=== PATIENT | female | born 1965 | race Caucasian/White ===

== ENCOUNTER 2022-10-21 09:20 | Outpatient (RCR) | payer BC, SELFPAY ==
[2022-10-21 09:48] VITALS: BP 181/85; PULSE 96; TEMP 35.9; BMI 22.4
--- NOTE | 2022-10-21 10:26 | RAD_ITS ---
INDICATION: R/O FOREIGN BODY EXAMINATION/TECHNIQUE: X-RAY - RIGHT XR Tibia/Fibula 2 Views COMPARISON: None. FINDINGS: No acute fracture or malalignment. No blastic or lytic lesions. Mild tricompartmental degenerative changes of the knee. The soft tissues are unremarkable. RAD/Tibia & Fibula 2 Views IMPRESSION: No radiopaque foreign body. Mild tricompartmental degenerative osteoarthritis of the knee. Electronically Signed: Gabriel Grayson MD at 16:51 EDT ,
--- NOTE | 2022-10-21 11:51 | PCM.WC.PN ---
History of Present Illness Date of Service: 10/21/22 Chief Complaint: Follow-up on traumatic wound right lower leg History of Wound: 57-year-old white female diabetic was walking across a bridge that collapsed over Labor memorial weekend of September 20. Leg went through wood and had wood sticking out of her wound. Patient thought she got it all out but was also in a [place] but ended up going to emergency room that did nothing and then she went to her family doctor and he basically put her on water pills and got an ultrasound which showed negative for blood clot they finally decided she had cellulitis and put her on Bactrim DS after the third urgent care. Patient states there is no cultures ever taken and no x-rays of her leg ultrasound really did not look for foreign body but found that everything was compressible and there is no issues with blood clots. Progress of Wound: Today she has a rather large open wound on the right lateral aspect of her right lower extremity with a deeper area that goes down to 1.0 cm's. She states is very painful and I question if there is a foreign body in there we will get an x-ray of her leg just to make sure there is nothing going on and obtain cultures today. In the meantime patient be started on Fibracol and an absorbent dressing. Subjective Subjective Patient was very happy we did cultures and getting x-rays done of her leg we will contact her with the results before we go any further with treatment Objective Data Objective Data We will start with the Fibracol and see if we see any difference pending will be her cultures and x-ray to determine further treatment. Patient had some recent lab work done that shows she is slightly anemic at 11.1 and she has some iron issues with her iron saturation is less than 22. Patient states her A1c was very good Vital Signs: Vital Signs Temp Pulse BP 96.7 F L 96 181/85 H 10/21/22 09:48 10/21/22 09:48 10/21/22 09:48 Weight: 135 lb Body Mass Index (BMI) 22.4 Debridement Note Debridement Note Wound debrided: Right lower extremity trauma pneumatic opening nonpressure Type of Debridement: Excisional debridement Anesthesia Used: 5% Lidocaine Gel Depth: Down to and including healthy tissue Percentage of wound debrided: 100 Instrument Used: 5mm curette Tissue Removed: Fibrin slough hematoma Severity: Fat Layer Exposed Amount of bleeding with debridement: Mild Bleeding Controlled with: Compression and gauze Patient tolerated procedure: Patient tolerated procedure well Post-Debridement Measurements and Additional Note: Post-Debridement Measurements/Treatment WC - Nurse 1 - General Ulcer Assessment Start: 10/21/22 09:35 Freq: Status: Active Protocol: MEENU Activity Type Activity Date Activity User E-sign Co-sign Detail Recorded Client Recorded Date Recorded By Document 10/21/22 09:48 GERHARD [id number] 10/21/22 09:51 GERHARD 10/21/22 09:48 WC - Today's Visit Information Type of service Initial Visit Arrival Mode Ambulatory Patient Identification Verified (Name & Yes ) Height and Weight Height 5 ft 5 in Weight 135 lb Weight in Pounds 135.0 lbs Body Mass Index (BMI) 22.4 BMI Classification Normal BSA - Narciso 1.67 Vital Signs Temperature (97.8 F-99.1 F) 96.7 F L Temperature Source Temporal Pulse Rate (60-100) 96 Pulse Location Monitor Blood Pressure (90/60-120/80) 181/85 H Blood Pressure Mean (mm Hg) 117 Source Monitor History Since Last Visit- (Skip if this is Patient's initial visit) Left Footwear Regular Shoe Right Footwear Regular Shoe Pain Scale: 0-10 Numeric Is Patient Pain Free? No LAURENCE - Nurse 1 - General Ulcer Measurement Start: 10/21/22 09:35 Freq: Status: Active Protocol: Activity Type Activity Date Activity User E-sign Co-sign Detail Recorded Client Recorded Date Recorded By Document 10/21/22 09:48 GERHARD [id number] 10/21/22 09:51 GERHARD 10/21/22 09:48 Wound Center Nurse 1 #1 R Vivas -Current Size (cm) - Length 2 -Current Size (cm) - Width 2.2 -Current Size (cm) - Depth 0.2 -Total Square Cm 4.4 -Date of Last Picture (Recall this 10/21/22 field) -Photo Taken Yes -Tunneling No -Undermining/Tunneling No -Circular Undermining No -Classification - Thickness Full Thickness with Exposed Support Structure -Exudate Amt Medium -Exudate Type Serosanguineous -Wound Margin Distinct, Outline Attached -Granulation Amt Medium (34-66%) -Granulation Quality [place] -Slough/Fibrin Yes -Necrosis Amt Medium (34-66%) -Necrotic Tissue Type Adherent Slough -Texture (Zenia-wound Skin Appearance) Assessed, Excoriation, Localized Edema -Moisture (Zenia-wound Skin Appearance) Assessed, Weeping -Color (Zenia-wound Skin Appearance) Assessed, Erythema -Temperature (Zenia-wound Skin No Abnormality Appearance) (Pt Warm) -Tenderness on Palpation (Zenia-wound Yes Skin Appearance) -Ulcer Cleansing Rinsed/ Irrigated with Saline -Foul Odor after Cleansing No -Anesthetic Used 5% Lidocaine Gel Right Calf (cm) 48 Right Ankle (cm) 25 Left Calf (cm) 49 Left Ankle (cm) 26 WC - Nurse 2 - General Ulcer CM Notes Start: 10/21/22 09:35 Freq: Status: Active Protocol: Activity Type Activity Date Activity User E-sign Co-sign Detail Recorded Client Recorded Date Recorded By Document 10/21/22 11:21 PL [id number] 10/21/22 11:22 PL 10/21/22 11:21 Wound Center Nurse 2 #1 R Vivas -Time 09:48 -Correct Patient Yes -Correct Side, Site, Position Yes -Correct Procedure Yes -Procedure Performed Yes -Type of Procedure Debridement -Clinical Debridement Subcutaneous -Tissue Removed Subcutaneous -Post Debridement (cm) - Length 2.0 -Post Debridement (cm) - Width 2.5 -Post Debridement (cm) - Depth 1.0 -Total Square (Post) (cm) 5.00 -Area of Debridement (cm) - Length 2.0 -Area of Debridement (cm) - Width 2.5 -Total Square (Area) (cm) 5.00 -Tunneling No -Undermining/Tunneling No -Circular Undermining No -Wound/Ulcer Outcome Not Healed -Ulcer Cleansing Rinsed/ Irrigated with Saline -Foul Odor after Cleansing No -Bioengineered Tissue No -Bleeding Controlled with Pressure -Treatment Response Procedure Tolerated Well -Debridement - Subq, 1st 20sq cm Yes Pain Scale: 0-10 Numeric Is Patient Pain Free? Yes - Nurse 3 - General Ulcer D/C NN Start: 10/21/22 09:35 Freq: Status: Active Protocol: Activity Type Activity Date Activity User E-sign Co-sign Detail Recorded Client Recorded Date Recorded By Document 10/21/22 10:10 [facility] [id number] 10/21/22 10:11 [facility] 10/21/22 10:10 Wound Care Center Nurse 3 #1 R Vivas -Ulcer Cleansing Rinsed/ Irrigated with Saline -Foul Odor after Cleansing No -Primary Dressing Applied Fibracol Plus 4x4,Mepilex Border -Fibracol Plus 4x4 2 -Mepilex Border 2 Right -Tubular Bandage Double Layer -Size of Tubigrip Used Size F -Size F ($) 2 Treatment Response Procedure Tolerated Well Pain Scale: 0-10 Numeric Is Patient Pain Free? Yes WC - Visit Discharge Discharge Condition Stable Ambulatory Status Ambulatory Transportation Private Auto Assessment/Plan Assessment/Plan (1) Hyperglycemia due to diabetes mellitus: CODE(S): E11.65 - Type 2 diabetes mellitus with hyperglycemia PLAN: Continue monitoring blood sugars (2) Nonhealing nonsurgical wound: CODE(S): T14.8XXA - Other injury of unspecified body region, initial encounter (3) Right leg injury: CODE(S): S89.91XA - Unspecified injury of right lower leg, initial encounter QUALIFIERS: Encounter type: initial encounter Qualified Code(s): S89.91XA - Unspecified injury of right lower leg, initial encounter PLAN: Wash right lower leg with antibacterial soap apply fibrin call to wound base cover with absorbent dressing Get the x-rays ordered done Follow-up in 1 week we will contact with results of cultures and x-rays (4) Edema of right lower extremity: CODE(S): R60.0 - Localized edema (5) Infected wound: CODE(S): T14.8XXA - Other injury of unspecified body region, initial encounter; L08.9 - Local infection of the skin and subcutaneous tissue, unspecified
== END 2022-10-23 23:59 | disposition home or self-care (01) ==
LOC: WC 09:20
PROVIDERS: PCP Family Medicine; Referring Provider Family Medicine; Visit Provider Nurse Practitioner
DX: S81.801A Unspecified open wound, right lower leg, initial encounter (principal); E11.65 Type 2 diabetes mellitus with hyperglycemia; L08.9 Local infection of the skin and subcutaneous tissue, unspecified; W13.1XXA Fall from, out of or through bridge, initial encounter; Y93.01 Activity, walking, marching and hiking
CPT/HCPCS: 11042; 73590; 87070; 87075; 87077; 87186; 87205; 99213; G0463

== ENCOUNTER 2022-10-25 09:41 | Emergency (ER) | payer BC, SELFPAY ==
[2022-10-25 09:43] VITALS: BP 131/81; PULSE 94; RESP 14; TEMP 36.1; O2SAT 98; BMI 48.2
--- NOTE | 2022-10-25 10:26 | RAD_ITS ---
STUDY: X-RAY - UNILATERAL RIBS ( RIGHT ) WITH CHEST REASON FOR EXAM: Female, 57 years old. injury TECHNIQUE - RIBS: 3 view(s) of the ribs. TECHNIQUE - CHEST: Single PA view of the chest. COMPARISON: None. FINDINGS - RIBS: Acute slightly displaced fracture of the lateral right fifth rib. FINDINGS - CHEST: The lungs are clear and expanded. Slight elevation right hemidiaphragm. Normal size heart. Normal mediastinum and rebeka. Normal visualized pulmonary arteries. Normal visualized aortic arch and descending thoracic aorta. Normal visualized thoracic spine. Normal visualized ribs, clavicles, and shoulders. There is no demonstrated abnormality of the visualized soft tissue structures of the upper abdomen. RAD/Ribs Uni Min 3V w/PA Chest IMPRESSION: RIBS: Acute slightly laterally displaced fracture of the right fifth rib. CHEST: No pneumothorax or hemothorax. Electronically Signed: Lazarus Rios MD at 11:06 EDT ,
--- NOTE | 2022-10-25 10:27 | EX.ED.GENINJ ---
HPI History of Present Illness Chief Complaint: Chest Other Detail of Chief Complaint: Right-sided chest pain Informant: patient Narrative Narrative: Patient presents to the emergency department with complaint of right-sided chest pain. Patient states that she had a fall 1 week ago where her dog was trying to run out of the house and she grabbed a harness and fell onto her right chest. She hurt right away. She continues to have pain and when she woke up this morning had more significant pain on the right side. Pain worse with certain movements like bending over to try to tie her shoe. Patient denies any shortness of breath or significant discomfort with breathing. She denies any fever. She denies recent travel or surgery. PFSH PFSH Home Medications hydrocodone-acetaminophen 5-325mg 5mg-325mg 1 tab PO Q4H PRN PRN Pain 2 days #10 TABLETS 10/25/22 [Rx Last Taken Unknown] Allergy/AdvReac Type Severity Reaction Status Date / Time Asprin Allergy Unknown PT UNSURE Uncoded 10/23/22 16:14 OF REACTION Social History Smoking Status: Never smoker ROS ROS ED Review of Systems ROS Unobtainable: other Constitutional Constitutional ED: Reports lethargy; Denies chills, fever(s), sweats or weight loss Eyes Eyes: Denies blurry vision, change in vision or diplopia ENT ENT ED: Denies rhinorrhea or sore throat Cardiovascular Cardiovascular: Reports chest pain; Denies orthopnea or racing heartbeat Respiratory/Chest Respiratory/Chest: Denies cough, dyspnea, dyspnea on exertion, orthopnea or sputum Gastrointestinal Gastrointestinal: Denies abdominal pain, diarrhea, nausea or vomiting Genitourinary Genitourinary ED: Denies dysuria, hematuria or urinary frequency Musculoskeletal Musculoskeletal: Denies arthralgias, back pain, myalgias or neck pain Integumentary Denies abscess, Abrasions or rash Neurologic Neurologic: Denies headache(s) or weakness Psychiatric Psychiatric: Denies anxiety, depression or suicidal thoughts Endocrine Endocrinology: Denies polydipsia, polyphagia or polyuria Hematologic/Lymphatic Hematologic/Lymphatic: Denies easy bleeding, easy bruising or lymphadenopathy Allergic/Immunologic Allergic/Immunologic ED: Denies mouth swelling, tongue swelling or urticaria EXAM Physical Exam Const Vital Signs: 10/25/22 09:43 10/25/22 10:44 Temperature 97 F L Temperature Source Temporal Pulse Rate 94 Respiratory Rate 14 Respiratory Pattern Normal Blood Pressure 131/81 H Blood Pressure Mean 97 Pulse Ox 98 Oxygen Delivery Method Room Air Positive well nourished and well developed General Appearance ED: well developed and NAD HEENT Reports TM's clear and moist mucous membranes normocephalic and atraumatic; Negative for trauma or tenderness Tympanic Membrane ED: Yes TM's clear Eyes PERRL and EOMs intact bilaterally General Eye ED: Negative for pale conjunctiva or scleral icterus Neck no lymphadenopathy, supple and no JVD General: Negative for tenderness Chest Wall inspection of chest normal Chest Narrative: Patient with tenderness palpation over the right chest wall in the midaxillary line and anteriorly. There is no ecchymosis or bruising. No subcutaneous emphysema noted. No chest wall deformity. Chest: Negative for tenderness Resp normal respiratory effort and clear to auscultation bilaterally Effort and Inspection: Negative for respiratory distress or pain with movement Auscultation: Negative for rhonchi, wheezes or diminished lung sounds Cardio regular rate, regular rhythm, S1 normal heart sound, S2 normal heart sound and no murmurs Peripheral Pulses: pulses 2+ throughout GI normal to inspection, nondistended, normoactive bowel sounds, soft to palpation, non-tender, non-distended and no masses Back/Spine no CVA tenderness and no thoracic nor lumbar tenderness Extremity normal to inspection General Extremety ED: Negative for edema General Extremity: Negative for edema Neuro oriented x3, CN's II-XII intact bilaterally, no sensory deficits noted and gait normal Sensorium / Orientation: awake, alert, oriented to person, oriented to place and oriented to time Motor Exam: strength 5/5 throughout and strength abnormal Psych mental status grossly normal Skin no rashes or lesions noted and no wounds MDM MDM MDM Narrative Medical decision making narrative: Patient with injury to right chest wall. X-rays obtained of the right ribs showed a minimally displaced right fifth rib fracture without evidence of pneumothorax. Patient will be given a prescription for [place] for pain and dispensed an incentive spirometer. Patient advised to return if increasing shortness of breath, fever, hemoptysis, or condition should worsen anyway. Radiography Diagnostic Testing: Clinical Impression(s) from Imaging Studies Ribs w/Chest X-Ray 10/25/22 10:26 IMPRESSION: RIBS: Acute slightly laterally displaced fracture of the right fifth rib. CHEST: No pneumothorax or hemothorax. Electronically Signed: Lazarus Rios MD at 11:06 EDT , Three-view x-rays of right ribs and PA chest obtained interpreted by myself as fracture right fifth rib without evidence of pneumothorax. Radiology in agreement. Discharge Plan Triage Chief Complaint: Chest Other ED Provider: Arielle Dent Dx/Rx/DC Orders Clinical Impression: Fracture of rib Instructions: ED Rib Fracture Prescriptions: New hydrocodone-acetaminophen [hydrocodone-acetaminophen] 5-325 mg tablet 1 tab PO Q4H PRN PRN (Reason: Pain) 2 Days Qty: 10 0RF Primary Care Provider: Tod Whitt Referrals: Tod Whitt MD [Primary Care Provider] - 1 Week Disposition Disposition: Home, Self Care
[2022-10-25] MEDS: HYDROcodone Bitartrate/Apap 5/325 Tablet PO (11:34)
== END 2022-10-25 12:11 | disposition home or self-care (01) ==
PROVIDERS: Emergency Provider Emergency Medicine; PCP Family Medicine; Visit Provider Emergency Medicine
DX: S22.31XA Fracture of one rib, right side, initial encounter for closed fracture (principal); W18.39XA Other fall on same level, initial encounter; Y92.019 Unspecified place in single-family (private) house as the place of occurrence of the external cause
CPT/HCPCS: 71101; 99283

== ENCOUNTER 2022-11-23 13:00 | Outpatient (RCR) | payer BC, SELFPAY ==
[2022-10-24 01:48] VITALS: BP 181/85; PULSE 96; TEMP 35.9; BMI 22.4
[2022-10-28 08:51] VITALS: BP 157/83; PULSE 111; RESP 16; TEMP 36.4; BMI 22.4
--- NOTE | 2022-10-28 12:16 | PN.PCM_ITS ---
History of Present Illness Date of Service: 10/28/22 Chief Complaint: Follow-up on traumatic wound right lower leg History of Wound: 57-year-old white female diabetic was walking across a bridge that collapsed over Labor memorial weekend of September 20. Leg went through wood and had wood sticking out of her wound. Patient thought she got it all out but was also in a [place]. but ended up going to emergency room that did nothing and then she went to her family doctor and he basically put her on water pills and got an ultrasound which showed negative for blood clot they finally decided she had cellulitis and put her on Bactrim DS after the third urgent care. Patient states there is no cultures ever taken and no x-rays of her leg ultrasound really did not look for foreign body but found that everything was compressible and there is no issues with blood clots. Progress of Wound: Today the wound is about the same size but did debride out a lot of the necrotic tissue today and got down to good tissue. Still has a lot of pain with debridement has a little bit of undermining on the lateral side of the wound. Patient was positive on cultures but has not been on the right antibiotic is still taking her Bactrim DS and I told her to stop and take the Levaquin. We will continue using compression on her for better edema control Subjective Subjective Patient is agreeable to all that we discussed Objective Data Objective Data Again we debrided a lot of the necrotic tissue out of the wound base but looks b igger but actually it is improving. Patient had back positive cultures and will be started on Levaquin this week X-ray was negative for any foreign bodies and soft tissue but did show swelling around the area. Also shows she has some right knee derangement and will be referred to orthopedics. Vital Signs: Vital Signs Temp Pulse Resp BP O2 Del Method 97.5 F L 111 H 16 157/83 H Room Air 10/28/22 08:51 10/28/22 08:51 10/28/22 08:51 10/28/22 08:51 10/28/22 08:51 Oxygen Delivery Method Room Air Weight: 135 lb Body Mass Index (BMI) 22.4 Lab / Micro Data Attestation: I reviewed the patient's lab results. Physical Exam Const oriented x3 General Appearance: cooperative Exam Limitations: no limitations HEENT normocephalic Head and Scalp: normal to inspection Face and Sinus: normal facial exam Nose: external nose normal General Ear: hearing grossly impaired External Ear: external ears normal Mouth: oral and palatal mucosa normal Eyes PERRL General Eye: normal appearance of both eyes Neck full ROM General: normal visual inspection Resp normal respiratory effort Effort and Inspection: able to speak in complete sentences Auscultation: clear to auscultation bilaterally Cardio regular rate and regular rhythm Palpation: normal PMI Rate: regular rate Rhythm: regular rhythm GI Auscultation: normoactive bowel sounds Palpation: soft and no hepatosplenomegaly external exam normal Back/Spine Cervical Spine: cervical ROM normal Thoracic Spine / Upper Back: normal to inspection Lumbar Spine / Lower Back: normal to inspection Extremity normal to inspection General Extremity: normal exam except as noted Skin no rashes or lesions noted Neuro oriented x3 Psych Appearance: grossly normal Speech: normal speech Thought Content: normal thought content Judgement: judgement good Debridement Note Debridement Note Wound debrided: Right alcantara traumatic wound Type of Debridement: Excisional debridement Anesthesia Used: 5% Lidocaine Gel Depth: in the subcutaneous layer Percentage of wound debrided: 100 Instrument Used: 5mm curette Tissue Removed: Devitalized tissue slough fibrin Severity: Fat Layer Exposed Amount of bleeding with debridement: Mild Bleeding Controlled with: Compression and gauze Patient tolerated procedure: Patient tolerated procedure well Post-Debridement Measurements and Additional Note: Post-Debridement Measurements/Treatment - Nurse 1 - General Ulcer Assessment Start: 10/28/22 08:50 Freq: Status: Active Protocol: WC.LOWEXT Activity Type Activity Date Activity User E-sign Co-sign Detail Recorded Client Recorded Date Recorded By Document 10/28/22 08:51 [facility] [id number] 10/28/22 09:01 [facility] 10/28/22 08:51 - Today's Visit Information Type of service 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 Visit (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 ) Arrival Mode Ambulatory,Cane Transfer Assistance None Patient Identification Verified (Name & Yes ) Patient Requires Transmission-Based No Precautions Height and Weight Body Mass Index (BMI) 22.4 BMI Classification Normal Vital Signs Temperature (97.8 F-99.1 F) 97.5 F L Temperature Source Temporal Pulse Rate (60-100) 111 H Pulse Location Monitor Respiratory Rate (12-18) 16 Respiratory rate source Observation Oxygen Delivery Method Room Air Blood Pressure (90/60-120/80) 157/83 H Blood Pressure Mean (mm Hg) 107 Source Monitor Position Sitting Blood Pressure Location Right Forearm History Since Last Visit- (Skip if this is Patient's initial visit) Have you changed medications since your No last visit? Any new allergies or adverse reactions No Had a fall/change in ADL's that may No increase risk of falls Signs or symptoms of abuse and/or No neglect since last visit Have you been in the hospital since your No last visit? Has dressing in place as prescribed Yes Has compression in place as prescribed Yes Has offloadiing in place as prescribed N/A Experienced any changes in pain level or No management Left Footwear Regular Shoe Right Footwear Regular Shoe Pain Scale: 0-10 Numeric Is Patient Pain Free? Yes WC - Nurse 1 - General Ulcer Measurement Start: 10/28/22 08:50 Freq: Status: Active Protocol: Activity Type Activity Date Activity User E-sign Co-sign Detail Recorded Client Recorded Date Recorded By Document 10/28/22 08:51 [facility] [id number] 10/28/22 09:01 [facility] 10/28/22 08:51 Wound Center Nurse 1 #1 R Alcantara -Combined with other wound No -Current Size (cm) - Length 2.1 -Current Size (cm) - Width 2.3 -Current Size (cm) - Depth 0.8 -Total Square Cm 4.83 -Date of Last Picture (Recall this 10/28/22 field) -Photo Taken Yes -Epithelialization None Present -Tunneling No -Undermining/Tunneling Yes -Undermining/Tunneling Starts (O'clock 2 ) -Undermining/Tunneling Ends (O'clock) 5 -Maximum Distance (cm) 1.3 -Circular Undermining No -Exudate Amt Large -Exudate Type Serosanguineous -Wound Margin Distinct, Outline Attached -Granulation Amt Medium (34-66%) -Granulation Quality Red -Slough/Fibrin Yes -Necrosis Amt Medium (34-66%) -Necrotic Tissue Type Adherent Slough -Texture (Zenia-wound Skin Appearance) Assessed, Fluctuance -Moisture (Zenia-wound Skin Appearance) Assessed -Color (Zenia-wound Skin Appearance) Assessed, Erythema -Temperature (Zenia-wound Skin No Abnormality Appearance) (Pt Warm) -Tenderness on Palpation (Zenia-wound Yes Skin Appearance) -Ulcer Cleansing Soap and Water -Anesthetic Used 5% Lidocaine Gel,Cetacaine Lower Limb Edema Present Yes Right Calf (cm) 46 Right Ankle (cm) 24.2 WC - Nurse 2 - General Ulcer CM Notes Start: 10/28/22 08:50 Freq: Status: Active Protocol: Activity Type Activity Date Activity User E-sign Co-sign Detail Recorded Client Recorded Date Recorded By Document 10/28/22 09:23 MW [id number] 10/28/22 09:27 MW 10/28/22 09:23 Wound Center Nurse 2 #1 R Alcantara -Time 09:24 -Correct Patient Yes -Correct Side, Site, Position Yes -Correct Procedure Yes -Procedure Performed Yes -Type of Procedure Debridement -Clinical Debridement Subcutaneous -Tissue Removed Subcutaneous -Post Debridement (cm) - Length 2.0 -Post Debridement (cm) - Width 2.5 -Post Debridement (cm) - Depth 0.5 -Total Square (Post) (cm) 5.00 -Area of Debridement (cm) - Length 2.0 -Area of Debridement (cm) - Width 2.5 -Total Square (Area) (cm) 5.00 -Tunneling No -Undermining/Tunneling Yes -Undermining/Tunneling Starts (O'clock 12 ) -Undermining/Tunneling Ends (O'clock) 5 -Maximum Distance (cm) 0.6 -Circular Undermining No -Wound/Ulcer Outcome Not Healed -Ulcer Cleansing Rinsed/ Irrigated with Saline -Foul Odor after Cleansing No -Bioengineered Tissue No -Bleeding Controlled with Pressure -Treatment Response Procedure Tolerated Well -Offloading No -Debridement - Subq, 1st 20sq cm Yes Pain Scale: 0-10 Numeric Is Patient Pain Free? Yes - Nurse 3 - General Ulcer D/C NN Start: 10/28/22 08:50 Freq: Status: Active Protocol: Activity Type Activity Date Activity User E-sign Co-sign Detail Recorded Client Recorded Date Recorded By Document 10/28/22 09:38 [facility] [id number] 10/28/22 09:39 [facility] 10/28/22 09:38 Wound Care Center Nurse 3 #1 R Alcantara -Ulcer Cleansing Rinsed/ Irrigated with Saline -Foul Odor after Cleansing No -Primary Dressing Applied Fibracol Plus 4x4,Mepilex Border -Fibracol Plus 4x4 1 -Mepilex Border 4 Right -Tubular Bandage Double Layer -Size of Tubigrip Used Size E -Size E ($) 1 Treatment Response Procedure Tolerated Well Pain Scale: 0-10 Numeric Is Patient Pain Free? Yes WC - Visit Discharge Discharge Condition Stable Ambulatory Status Ambulatory,Cane Transportation Private Auto Assessment/Plan Assessment/Plan (1) Hyperglycemia due to diabetes mellitus: CODE(S): E11.65 - Type 2 diabetes mellitus with hyperglycemia PLAN: Continue monitoring blood sugars (2) Nonhealing nonsurgical wound: CODE(S): T14.8XXA - Other injury of unspecified body region, initial encounter (3) Right leg injury: CODE(S): S89.91XA - Unspecified injury of right lower leg, initial encounter QUALIFIERS: Encounter type: initial encounter Qualified Code(s): S89.91XA - Unspecified injury of right lower leg, initial encounter PLAN: Wash right lower leg with antibacterial soap apply fibrin call to wound base cover with absorbent dressing every day Start the Levaquin 500 mg daily for 14 days and stop the Bactrim DS Double layer Tubigrip to the right leg for edema Follow-up in 1 week (4) Edema of right lower extremity: CODE(S): R60.0 - Localized edema (5) Infected wound: CODE(S): T14.8XXA - Other injury of unspecified body region, initial enco unter; L08.9 - Local infection of the skin and subcutaneous tissue, unspecified
[2022-11-04 09:04] VITALS: BP 139/91; PULSE 100; RESP 20; TEMP 36.5; BMI 22.4
--- NOTE | 2022-11-04 10:12 | PCM.WC.PN ---
History of Present Illness Date of Service: 11/04/22 Chief Complaint: Follow-up on traumatic wound right lower leg History of Wound: 57-year-old white female diabetic was walking across a bridge that collapsed over Labor memorial weekend of September 20. Leg went through wood and had wood sticking out of her wound. Patient thought she got it all out but was also in a [place]. but ended up going to emergency room that did nothing and then she went to her family doctor and he basically put her on water pills and got an ultrasound which showed negative for blood clot they finally decided she had cellulitis and put her on Bactrim DS after the third urgent care. Patient states there is no cultures ever taken and no x-rays of her leg ultrasound really did not look for foreign body but found that everything was compressible and there is no issues with blood clots. Progress of Wound: Today the wound is slightly smaller still has a lot of undermining especially down at 6:00. Redness around the wound perimeter has disappeared on the antibiotics she finally stopped the Bactrim and is only taking the Levaquin daily. She can even see a difference I can see a new cell growth in the base of the cell more shallow measurements are smaller. We will get okayed for a snap VAC for the wound on her lower leg I think it might help with healing and getting rid of the undermining. Patient very tolerant to the debridement and did get a lot of slough and fibrin out of the base of the wound Subjective Subjective Patient is good with the plan and will continue using the Fibracol to we get the snap VAC okay Objective Data Objective Data As stated above improvement is seen on the legs she does have positive for staph infection and is treating with Levaquin no anaerobes were noted which is really good since it [place]. We will get the approval for a snap VAC for the leg and see if that works for her healing. Vital Signs: Vital Signs Temp Pulse Resp BP O2 Del Method 97.7 F L 100 20 H 139/91 H Room Air 11/04/22 09:04 11/04/22 09:04 11/04/22 09:04 11/04/22 09:04 10/28/22 08:51 Oxygen Delivery Method Room Air Weight: 135 lb Body Mass Index (BMI) 22.4 Lab / Micro Data Attestation: I reviewed the patient's lab results. Physical Exam Const oriented x3 General Appearance: cooperative Exam Limitations: no limitations HEENT normocephalic Head and Scalp: normal to inspection Face and Sinus: normal facial exam Nose: external nose normal General Ear: hearing grossly impaired External Ear: external ears normal Mouth: oral and palatal mucosa normal Eyes PERRL General Eye: normal appearance of both eyes Neck full ROM General: normal visual inspection Resp normal respiratory effort Effort and Inspection: able to speak in complete sentences Auscultation: clear to auscultation bilaterally Cardio regular rate and regular rhythm Palpation: normal PMI Rate: regular rate Rhythm: regular rhythm GI Auscultation: normoactive bowel sounds Palpation: soft and no hepatosplenomegaly external exam normal Back/Spine Cervical Spine: cervical ROM normal Thoracic Spine / Upper Back: normal to inspection Lumbar Spine / Lower Back: normal to inspection Extremity normal to inspection General Extremity: normal exam except as noted Skin no rashes or lesions noted Neuro oriented x3 Psych Appearance: grossly normal Speech: normal speech Thought Content: normal thought content Judgement: judgement good Debridement Note Debridement Note Wound debrided: Right lower leg ulcer from trauma Type of Debridement: Excisional debridement Anesthesia Used: 5% Lidocaine Gel Depth: Down to and including healthy tissue and in the subcutaneous layer Percentage of wound debrided: 100 Instrument Used: 7mm curette Tissue Removed: Fibrin devitalized tissue slough Severity: Fat Layer Exposed Amount of bleeding with debridement: Mild Bleeding Controlled with: Compression and gauze Patient tolerated procedure: Patient tolerated procedure well Post-Debridement Measurements and Additional Note: Post-Debridement Measurements/Treatment - Nurse 1 - General Ulcer Assessment Start: 10/28/22 08:50 Freq: Status: Active Protocol: MEENU Activity Type Activity Date Activity User E-sign Co-sign Detail Recorded Client Recorded Date Recorded By Document 10/28/22 08:51 [facility] [id number] 10/28/22 09:01 BM Document 11/04/22 09:04 DL [id number] 11/04/22 09:17 DL 10/28/22 11/04/22 08:51 09:04 - Today's Visit Information Type of service Follow-up Visit 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 Visit (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/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/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 ) ) Arrival Mode Ambulatory,Cane Ambulatory Transfer Assistance None None Patient Identification Verified (Name & Yes Yes ) Patient Requires Transmission-Based No No Precautions Finger Stick Blood Sugar(mg/dl) (if 171 indicated): Blood Sugar Stated by Patient Height and Weight Body Mass Index (BMI) 22.4 22.4 BMI Classification Normal Normal Vital Signs Temperature (97.8 F-99.1 F) 97.5 F L 97.7 F L Temperature Source Temporal Temporal Pulse Rate (60-100) 111 H 100 Pulse Location Monitor Monitor Respiratory Rate (12-18) 16 20 H Respiratory rate source Observation Observation Oxygen Delivery Method Room Air Blood Pressure (90/60-120/80) 157/83 H 139/91 H Blood Pressure Mean (mm Hg) 107 107 Source Monitor Monitor Position Sitting Blood Pressure Location Right Forearm History Since Last Visit- (Skip if this is Patient's initial visit) Have you changed medications since your No No last visit? Any new allergies or adverse reactions No No Had a fall/change in ADL's that may No No increase risk of falls Signs or symptoms of abuse and/or No No neglect since last visit Have you been in the hospital since your No No last visit? Has dressing in place as prescribed Yes Yes Has compression in place as prescribed Yes No Has offloadiing in place as prescribed N/A N/A Experienced any changes in pain level or No No management Left Footwear Regular Shoe Right Footwear Regular Shoe Pain Scale: 0-10 Numeric Is Patient Pain Free? Yes Yes WC - Nurse 1 - General Ulcer Measurement Start: 10/28/22 08:50 Freq: Status: Active Protocol: Activity Type Activity Date Activity User E-sign Co-sign Detail Recorded Client Recorded Date Recorded By Document 10/28/22 08:51 [facility] [id number] 10/28/22 09:01 BMF Document 11/04/22 09:04 DL [id number] 11/04/22 09:17 DL 10/28/22 11/04/22 08:51 09:04 Wound Center Nurse 1 #1 R Vivas -Combined with other wound No -Current Size (cm) - Length 2.1 2 -Current Size (cm) - Width 2.3 1.9 -Current Size (cm) - Depth 0.8 0.8 -Total Square Cm 4.83 3.8 -Date of Last Picture (Recall this 10/28/22 field) -Photo Taken Yes -Epithelialization None Present -Tunneling No -Undermining/Tunneling Yes -Undermining/Tunneling Starts (O'clock 2 1 ) -Undermining/Tunneling Ends (O'clock) 5 6 -Maximum Distance (cm) 1.3 1.5 -Circular Undermining No -Exudate Amt Large Medium -Exudate Type Serosanguineous Yellow/Green -Wound Margin Distinct, Thickened & Outline Rolled Under Attached -Granulation Amt Medium (34-66%) Medium (34-66%) -Granulation Quality Red Red -Slough/Fibrin Yes -Necrosis Amt Medium (34-66%) Medium (34-66%) -Necrotic Tissue Type Adherent Slough Adherent Slough -Structure Exposed N/A -Texture (Zenia-wound Skin Appearance) Assessed, Scarring Fluctuance -Moisture (Zenia-wound Skin Appearance) Assessed No Abnormality -Color (Zenia-wound Skin Appearance) Assessed, Erythema Erythema -Temperature (Zenia-wound Skin No Abnormality No Abnormality Appearance) (Pt Warm) (Pt Warm) -Tenderness on Palpation (Zenia-wound Yes Yes Skin Appearance) -Ulcer Cleansing Soap and Water Soap and Water -Foul Odor after Cleansing No -Anesthetic Used 5% Lidocaine 5% Lidocaine Gel,Cetacaine Gel Lower Limb Edema Present Yes Right Calf (cm) 46 46 Right Ankle (cm) 24.2 23.2 WC - Nurse 2 - General Ulcer CM Notes Start: 10/28/22 08:50 Freq: Status: Active Protocol: Activity Type Activity Date Activity User E-sign Co-sign Detail Recorded Client Recorded Date Recorded By Document 10/28/22 09:23 MW [id number] 10/28/22 09:27 MW Document 11/04/22 09:25 MW [id number] 11/04/22 09:34 MW 10/28/22 11/04/22 09:23 09:25 Wound Center Nurse 2 #1 R Vivas -Time 09:24 09:26 -Correct Patient Yes Yes -Correct Side, Site, Position Yes Yes -Correct Procedure Yes Yes -Procedure Performed Yes Yes -Type of Procedure Debridement Debridement -Clinical Debridement Subcutaneous Subcutaneous -Tissue Removed Subcutaneous Subcutaneous -Post Debridement (cm) - Length 2.0 2.1 -Post Debridement (cm) - Width 2.5 2.3 -Post Debridement (cm) - Depth 0.5 0.4 -Total Square (Post) (cm) 5.00 4.83 -Area of Debridement (cm) - Length 2.0 2.1 -Area of Debridement (cm) - Width 2.5 2.3 -Total Square (Area) (cm) 5.00 4.83 -Tunneling No Yes -Tunneling Position (O'clock) 6 -Tunneling Distance (cm) 1.7 -Undermining/Tunneling Yes Yes -Undermining/Tunneling Starts (O'clock 12 2 ) -Undermining/Tunneling Ends (O'clock) 5 5 -Maximum Distance (cm) 0.6 1.0 -Circular Undermining No No -Wound/Ulcer Outcome Not Healed Not Healed -Ulcer Cleansing Rinsed/ Wound Cleanser Irrigated with Saline -Foul Odor after Cleansing No No -Bioengineered Tissue No No -Bleeding Controlled with Pressure Pressure -Treatment Response Procedure Procedure Tolerated Well Tolerated Well -Offloading No No -Debridement - Subq, 1st 20sq cm Yes Yes Pain Scale: 0-10 Numeric Is Patient Pain Free? Yes Yes - Nurse 3 - General Ulcer D/C NN Start: 10/28/22 08:50 Freq: Status: Active Protocol: Activity Type Activity Date Activity User E-sign Co-sign Detail Recorded Client Recorded Date Recorded By Document 10/28/22 09:38 [facility] [id number] 10/28/22 09:39 [facility] Document 11/04/22 09:34 MW [id number] 11/04/22 09:36 MW 10/28/22 11/04/22 09:38 09:34 Wound Care Center Nurse 3 #1 R Vivas -Ulcer Cleansing Rinsed/ Rinsed/ Irrigated with Irrigated with Saline Saline -Foul Odor after Cleansing No No -Negative Pressure Wound Therapy N/A -Primary Dressing Applied Fibracol Plus Fibracol Plus 4x4,Mepilex 4x4,Mepilex Border Border -Fibracol Plus 4x4 1 1 -Mepilex Border 4 1 Right -Lotion applied to leg before No compression wrap -Tubular Bandage Double Layer -Size of Tubigrip Used Size E -Size E ($) 1 -Stockings Yes Treatment Response Procedure Procedure Tolerated Well Tolerated Well Pain Scale: 0-10 Numeric Is Patient Pain Free? Yes Yes Teaching: Wound Center Dressing Your Wound -Person Taught Patient -Teaching Method Discussion -Response to teaching Verbalize understanding WC - Visit Discharge Discharge Condition Stable Stable Ambulatory Status Ambulatory,Cane Ambulatory Transportation Private Auto Private Auto Accompanied by self Medication Reconcilliation completed & No provided to patient/care provider Clinical Summary of Care Provided Yes Assessment/Plan Assessment/Plan (1) Hyperglycemia due to diabetes mellitus: CODE(S): E11.65 - Type 2 diabetes mellitus with hyperglycemia PLAN: Continue monitoring blood sugars (2) Nonhealing nonsurgical wound: CODE(S): T14.8XXA - Other injury of unspecified body region, initial encounter (3) Right leg injury: CODE(S): S89.91XA - Unspecified injury of right lower leg, initial encounter QUALIFIERS: Encounter type: initial encounter Qualified Code(s): S89.91XA - Unspecified injury of right lower leg, initial encounter PLAN: Wash right lower leg with antibacterial soap apply fibrin call to wound base cover with absorbent dressing every day She has started the Levaquin 500 mg daily for 14 days Double layer Tubigrip to the right leg for edema Follow-up in 1 week Applying for snap VAC we will get back to her next week for approval (4) Edema of right lower extremity: CODE(S): R60.0 - Localized edema (5) Infected wound: CODE(S): T14.8XXA - Other injury of unspecified body region, initial encounter; L08.9 - Local infection of the skin and subcutaneous tissue, unspecified
[2022-11-11 08:49] VITALS: BP 149/64; PULSE 103; RESP 18; TEMP 35.8; BMI 22.4
--- NOTE | 2022-11-11 10:12 | PCM.WC.PN ---
History of Present Illness Date of Service: 11/11/22 Chief Complaint: Follow-up on traumatic wound right lower leg History of Wound: 57-year-old white female diabetic was walking across a bridge that collapsed over Labor memorial weekend of September 20. Leg went through wood and had wood sticking out of her wound. Patient thought she got it all out but was also in a [place]. but ended up going to emergency room that did nothing and then she went to her family doctor and he basically put her on water pills and got an ultrasound which showed negative for blood clot they finally decided she had cellulitis and put her on Bactrim DS after the third urgent care. Patient states there is no cultures ever taken and no x-rays of her leg ultrasound really did not look for foreign body but found that everything was compressible and there is no issues with blood clots. Progress of Wound: Today the wound is slightly smaller still has a lot of undermining especially down at 6:00. Redness around the wound perimeter has disappeared on the antibiotics. She finished the Levaquin yesterday she can even see a difference I can see a new cell growth in the base of the cell more shallow measurements are smaller. We will apply the snap VAC today with approval. Patient very tolerant to the debridement and did get a lot of slough and fibrin out of the base of the wound Subjective Subjective Patient is very excited about getting the snap VAC Objective Data Objective Data We will apply the snap VAC today and as stated above measurements are smaller still has some tunneling and undermining we will hopefully the snap VAC will take care of all that. Surrounding skin is very supple coloring is good no sign of infection or odor or anything. Vital Signs: Vital Signs Temp Pulse Resp BP O2 Del Method 96.5 F L 103 H 18 149/64 H Room Air 11/11/22 08:49 11/11/22 08:49 11/11/22 08:49 11/11/22 08:49 11/11/22 08:49 Oxygen Delivery Method Room Air Weight: 135 lb Body Mass Index (BMI) 22.4 Physical Exam Const oriented x3 General Appearance: cooperative Exam Limitations: no limitations HEENT normocephalic Head and Scalp: normal to inspection Face and Sinus: normal facial exam Nose: external nose normal General Ear: hearing grossly impaired External Ear: external ears normal Mouth: oral and palatal mucosa normal Eyes PERRL General Eye: normal appearance of both eyes Neck full ROM General: normal visual inspection Resp normal respiratory effort Effort and Inspection: able to speak in complete sentences Auscultation: clear to auscultation bilaterally Cardio regular rate and regular rhythm Palpation: normal PMI Rate: regular rate Rhythm: regular rhythm GI Auscultation: normoactive bowel sounds Palpation: soft and no hepatosplenomegaly external exam normal Back/Spine Cervical Spine: cervical ROM normal Thoracic Spine / Upper Back: normal to inspection Lumbar Spine / Lower Back: normal to inspection Extremity normal to inspection General Extremity: normal exam except as noted Skin no rashes or lesions noted Neuro oriented x3 Psych Appearance: grossly normal Speech: normal speech Thought Content: normal thought content Judgement: judgement good Debridement Note Debridement Note Wound debrided: Right alcantara trauma Laterality: Right Type of Debridement: Excisional debridement Anesthesia Used: 5% Lidocaine Gel Depth: Down to and including healthy tissue Percentage of wound debrided: 100 Instrument Used: 5mm curette Tissue Removed: Fibrin Severity: Fat Layer Exposed Amount of bleeding with debridement: Mild Bleeding Controlled with: Compression and gauze Patient tolerated procedure: Patient tolerated procedure well Post-Debridement Measurements and Additional Note: Post-Debridement Measurements/Treatment - Nurse 1 - General Ulcer Assessment Start: 10/28/22 08:50 Freq: Status: Active Protocol: MEENU Activity Type Activity Date Activity User E-sign Co-sign Detail Recorded Client Recorded Date Recorded By Document 10/28/22 08:51 [facility] [id number] 10/28/22 09:01 [facility] Document 11/04/22 09:04 [id number] 11/04/22 09:17 DL Document 11/11/22 08:49 [facility] [id number] 11/11/22 08:55 [facility] 10/28/22 11/04/22 11/11/22 08:51 09:04 08:49 - Today's Visit Information Type of service Follow-up Visit Follow-up Visit Follow-up Visit (Physician/PRESS OPERATOR APPRENTICE (Physician/PRESS OPERATOR APPRENTICE (Physician/PRESS OPERATOR APPRENTICE ) ) ) Arrival Mode Ambulatory,Cane Ambulatory Ambulatory Transfer Assistance None None None Patient Identification Verified (Name & Yes Yes Yes ) Patient Requires Transmission-Based No No No Precautions Finger Stick Blood Sugar(mg/dl) (if 171 indicated): Blood Sugar Stated by Patient Height and Weight Body Mass Index (BMI) 22.4 22.4 22.4 BMI Classification Normal Normal Normal Vital Signs Temperature (97.8 F-99.1 F) 97.5 F L 97.7 F L 96.5 F L Temperature Source Temporal Temporal Temporal Pulse Rate (60-100) 111 H 100 103 H Pulse Location Monitor Monitor Monitor Respiratory Rate (12-18) 16 20 H 18 Respiratory rate source Observation Observation Observation Oxygen Delivery Method Room Air Room Air Blood Pressure (90/60-120/80) 157/83 H 139/91 H 149/64 H Blood Pressure Mean (mm Hg) 107 107 92 Source Monitor Monitor Monitor Position Sitting Sitting Blood Pressure Location Right Forearm Right Forearm History Since Last Visit- (Skip if this is Patient's initial visit) Have you changed medications since your No No No last visit? Any new allergies or adverse reactions No No No Had a fall/change in ADL's that may No No No increase risk of falls Signs or symptoms of abuse and/or No No No neglect since last visit Have you been in the hospital since your No No No last visit? Has dressing in place as prescribed Yes Yes Yes Has compression in place as prescribed Yes No Yes Has offloadiing in place as prescribed N/A N/A N/A Experienced any changes in pain level or No No No management Left Footwear Regular Shoe Regular Shoe Right Footwear Regular Shoe Regular Shoe Pain Scale: 0-10 Numeric Is Patient Pain Free? Yes Yes Yes WC - Nurse 1 - General Ulcer Measurement Start: 10/28/22 08:50 Freq: Status: Active Protocol: Activity Type Activity Date Activity User E-sign Co-sign Detail Recorded Client Recorded Date Recorded By Document 10/28/22 08:51 [facility] [id number] 10/28/22 09:01 [facility] Document 11/04/22 09:04 DL [id number] 11/04/22 09:17 DL Document 11/11/22 08:49 [facility] [id number] 11/11/22 08:55 BM 10/28/22 11/04/22 11/11/22 08:51 09:04 08:49 Wound Center Nurse 1 #1 R Alcantara -Combined with other wound No No -Current Size (cm) - Length 2.1 2 2.1 -Current Size (cm) - Width 2.3 1.9 1.8 -Current Size (cm) - Depth 0.8 0.8 0.4 -Total Square Cm 4.83 3.8 3.78 -Date of Last Picture (Recall this 10/28/22 11/11/22 field) -Photo Taken Yes Yes -Epithelialization None Present None Present -Tunneling No No -Undermining/Tunneling Yes Yes -Undermining/Tunneling Starts (O'clock 2 1 2 ) -Undermining/Tunneling Ends (O'clock) 5 6 5 -Maximum Distance (cm) 1.3 1.5 2 -Circular Undermining No No -Exudate Amt Large Medium Medium -Exudate Type Serosanguineous Yellow/Green Serosanguineous -Wound Margin Distinct, Thickened & Distinct, Outline Rolled Under Outline Attached Attached -Granulation Amt Medium (34-66%) Medium (34-66%) Medium (34-66%) -Granulation Quality Red Red Red -Slough/Fibrin Yes Yes -Necrosis Amt Medium (34-66%) Medium (34-66%) Medium (34-66%) -Necrotic Tissue Type Adherent Slough Adherent Slough Adherent Slough -Structure Exposed N/A -Texture (Zenia-wound Skin Appearance) Assessed, Scarring Assessed, Fluctuance Scarring -Moisture (Zenia-wound Skin Appearance) Assessed No Abnormality Assessed -Color (Zenia-wound Skin Appearance) Assessed, Erythema Assessed Erythema -Temperature (Zenia-wound Skin No Abnormality No Abnormality No Abnormality Appearance) (Pt Warm) (Pt Warm) (Pt Warm) -Tenderness on Palpation (Zenia-wound Yes Yes No Skin Appearance) -Ulcer Cleansing Soap and Water Soap and Water Rinsed/ Irrigated with Saline -Foul Odor after Cleansing No No -Anesthetic Used 5% Lidocaine 5% Lidocaine 5% Lidocaine Gel,Cetacaine Gel Gel Lower Limb Edema Present Yes Yes Right Calf (cm) 46 46 46.2 Right Ankle (cm) 24.2 23.2 24.5 WC - Nurse 2 - General Ulcer CM Notes Start: 10/28/22 08:50 Freq: Status: Active Protocol: Activity Type Activity Date Activity User E-sign Co-sign Detail Recorded Client Recorded Date Recorded By Document 10/28/22 09:23 MW [id number] 10/28/22 09:27 MW Document 11/04/22 09:25 MW [id number] 11/04/22 09:34 MW Document 11/11/22 09:19 MW [id number] 11/11/22 09:22 MW 10/28/22 11/04/22 11/11/22 09:23 09:25 09:19 Wound Center Nurse 2 #1 R Alcantara -Time 09:24 09:26 09:20 -Correct Patient Yes Yes Yes -Correct Side, Site, Position Yes Yes Yes -Correct Procedure Yes Yes Yes -Procedure Performed Yes Yes Yes -Type of Procedure Debridement Debridement Debridement -Clinical Debridement Subcutaneous Subcutaneous Subcutaneous -Tissue Removed Subcutaneous Subcutaneous Subcutaneous -Post Debridement (cm) - Length 2.0 2.1 2.0 -Post Debridement (cm) - Width 2.5 2.3 2.0 -Post Debridement (cm) - Depth 0.5 0.4 0.4 -Total Square (Post) (cm) 5.00 4.83 4.00 -Area of Debridement (cm) - Length 2.0 2.1 2.0 -Area of Debridement (cm) - Width 2.5 2.3 2.0 -Total Square (Area) (cm) 5.00 4.83 4.00 -Tunneling No Yes Yes -Tunneling Position (O'clock) 6 3 -Tunneling Distance (cm) 1.7 2.5 -Undermining/Tunneling Yes Yes Yes -Undermining/Tunneling Starts (O'clock 12 2 12 ) -Undermining/Tunneling Ends (O'clock) 5 5 2 -Maximum Distance (cm) 0.6 1.0 0.7 -Circular Undermining No No No -Wound/Ulcer Outcome Not Healed Not Healed Not Healed -Ulcer Cleansing Rinsed/ Wound Cleanser Rinsed/ Irrigated with Irrigated with Saline Saline -Foul Odor after Cleansing No No No -Bioengineered Tissue No No No -Bleeding Controlled with Pressure Pressure Pressure -Treatment Response Procedure Procedure Procedure Tolerated Well Tolerated Well Tolerated Well -Offloading No No No -Debridement - Subq, 1st 20sq cm Yes Yes Yes Pain Scale: 0-10 Numeric Is Patient Pain Free? Yes Yes Yes WC - Nurse 3 - General Ulcer D/C NN Start: 10/28/22 08:50 Freq: Status: Active Protocol: Activity Type Activity Date Activity User E-sign Co-sign Detail Recorded Client Recorded Date Recorded By Document 10/28/22 09:38 [facility] [id number] 10/28/22 09:39 BM Document 11/04/22 09:34 MW [id number] 11/04/22 09:36 MW Document 11/11/22 09:23 MW [id number] 11/11/22 09:25 MW 10/28/22 11/04/22 11/11/22 09:38 09:34 09:23 Wound Care Center Nurse 3 #1 R Alcant[place] -Ulcer Cleansing Rinsed/ Rinsed/ Rinsed/ Irrigated with Irrigated with Irrigated with Saline Saline Saline -Foul Odor after Cleansing No No No -Negative Pressure Wound Therapy N/A Start -Setting (mmHg) 125 -Negative Pressure is Continuous -Primary Dressing Applied Fibracol Plus Fibracol Plus 4x4,Mepilex 4x4,Mepilex Border Border -Other Dressing snap vac -NPWT Application Charge NPWT </= 50 sq cm (disp) ($) -Fibracol Plus 4x4 1 1 -Mepilex Border 4 1 Right -Lotion applied to leg before No No compression wrap -Compression Wrap Te Wrap -Tubular Bandage Double Layer -Size of Tubigrip Used Size E -Size E ($) 1 -Stockings Yes Treatment Response Procedure Procedure Procedure Tolerated Well Tolerated Well Tolerated Well Pain Scale: 0-10 Numeric Is Patient Pain Free? Yes Yes Yes Teaching: Wound Center Dressing Your Wound -Person Taught Patient Patient -Teaching Method Discussion Discussion, Demonstration -Response to teaching Verbalize Return understanding demonstration, Verbalize understanding WC - Visit Discharge Discharge Condition Stable Stable Stable Ambulatory Status Ambulatory,Cane Ambulatory Ambulatory Transportation Private Auto Private Auto Private Auto Accompanied by self self Medication Reconcilliation completed & No No provided to patient/care provider Clinical Summary of Care Provided Yes Yes Assessment/Plan Assessment/Plan (1) Hyperglycemia due to diabetes mellitus: CODE(S): E11.65 - Type 2 diabetes mellitus with hyperglycemia PLAN: Continue monitoring blood sugars (2) Nonhealing nonsurgical wound: CODE(S): T14.8XXA - Other injury of unspecified body region, initial encounter (3) Right leg injury: CODE(S): S89.91XA - Unspecified injury of right lower leg, initial encounter QUALIFIERS: Encounter type: initial encounter Qualified Code(s): S89.91XA - Unspecified injury of right lower leg, initial encounter PLAN: Applied snap VAC today with the highest compression we can put it on. Patient was instructed unable to get wet so she has a leg bag to shower with. Follow-up in 1 week. If having issues give us a call patient was taught how to apply for if she lose her suction or compression. (4) Edema of right lower extremity: CODE(S): R60.0 - Localized edema (5) Infected wound: CODE(S): T14.8XXA - Other injury of unspecified body region, initial encounter; L08.9 - Local infection of the skin and subcutaneous tissue, unspecified
[2022-11-13 11:58] VITALS: RESP 20; TEMP 36.6; BMI 22.4
[2022-11-18 08:52] VITALS: BP 181/76; PULSE 100; RESP 18; TEMP 35.8; BMI 22.4
--- NOTE | 2022-11-18 12:13 | PN.PCM_ITS ---
History of Present Illness Date of Service: 11/18/22 Chief Complaint: Follow-up on traumatic wound right lower leg History of Wound: 57-year-old white female diabetic was walking across a bridge that collapsed over Labor memorial weekend of September 20. Leg went through wood and had wood sticking out of her wound. Patient thought she got it all out but was also in a [place]. but ended up going to emergency room that did nothing and then she went to her family doctor and he basically put her on water pills and got an ultrasound which showed negative for blood clot they finally decided she had cellulitis and put her on Bactrim DS after the third urgent care. Patient states there is no cultures ever taken and no x-rays of her leg ultrasound really did not look for foreign body but found that everything was compressible and there is no issues with blood clots. Progress of Wound: Today the wound is slightly smaller still has a lot of undermining especially down at 6:00. Redness around the wound perimeter has disappeared on the antibiotics. Patient has been tolerant with the snap VAC and is doing really well Measurements are much smaller and doing better coloring on the perimeter skin is very good and looks more normal no redness. Subjective Subjective Patient very pleased with the snap VAC Objective Data Objective Data Tolerating the snap VAC well is working well at getting that undermining cleared up Vital Signs: Vital Signs Temp Pulse Resp BP O2 Del Method 96.5 F L 100 18 181/76 H Room Air 11/18/22 08:52 11/18/22 08:52 11/18/22 08:52 11/18/22 08:52 11/11/22 08:49 Oxygen Delivery Method Room Air Weight: 135 lb Body Mass Index (BMI) 22.4 Lab / Micro Data Attestation: I reviewed the patient's lab results. Physical Exam Const oriented x3 General Appearance: cooperative Exam Limitations: no limitations HEENT normocephalic Head and Scalp: normal to inspection Face and Sinus: normal facial exam Nose: external nose normal General Ear: hearing grossly impaired External Ear: external ears normal Mouth: oral and palatal mucosa normal Eyes PERRL General Eye: normal appearance of both eyes Neck full ROM General: normal visual inspection Resp normal respiratory effort Effort and Inspection: able to speak in complete sentences Auscultation: clear to auscultation bilaterally Cardio regular rate and regular rhythm Palpation: normal PMI Rate: regular rate Rhythm: regular rhythm GI Auscultation: normoactive bowel sounds Palpation: soft and no hepatosplenomegaly external exam normal Back/Spine Cervical Spine: cervical ROM normal Thoracic Spine / Upper Back: normal to inspection Lumbar Spine / Lower Back: normal to inspection Extremity normal to inspection General Extremity: normal exam except as noted Skin no rashes or lesions noted Neuro oriented x3 Psych Appearance: grossly normal Speech: normal speech Thought Content: normal thought content Judgement: judgement good Debridement Note Debridement Note Wound debrided: Right alcantara traumatic wound from a broken wooden bridge Laterality: Right Type of Debridement: Excisional debridement Anesthesia Used: 5% Lidocaine Gel Depth: Down to and including healthy tissue and in the subcutaneous layer Percentage of wound debrided: 100 Instrument Used: 5mm curette Tissue Removed: Fibrin Severity: Fat Layer Exposed Amount of bleeding with debridement: Mild Bleeding Controlled with: Compression and gauze Patient tolerated procedure: Patient tolerated procedure well Post-Debridement Measurements and Additional Note: Post-Debridement Measurements/Treatment - Nurse 1 - General Ulcer Assessment Start: 10/28/22 08:50 Freq: Status: Active Protocol: MEENU Activity Type Activity Date Activity User E-sign Co-sign Detail Recorded Client Recorded Date Recorded By Document 10/28/22 08:51 [facility] [id number] 10/28/22 09:01 [facility] Document 11/04/22 09:04 DL [id number] 11/04/22 09:17 DL Document 11/11/22 08:49 [facility] [id number] 11/11/22 08:55 [facility] Document 11/13/22 11:58 DL [id number] 11/13/22 12:17 DL Document 11/18/22 08:52 RB [id number] 11/18/22 08:53 RB 10/28/22 11/04/22 11/11/22 08:51 09:04 08:49 - Today's Visit Information Type of service Follow-up Visit Follow-up Visit Follow-up Visit (Physician/BRAKE COUPLER DINKEY (Physician/BRAKE COUPLER DINKEY (Physician/BRAKE COUPLER DINKEY ) ) ) Arrival Mode Ambulatory,Cane Ambulatory Ambulatory Transfer Assistance None None None Patient Identification Verified (Name & Yes Yes Yes ) Patient Requires Transmission-Based No No No Precautions Finger Stick Blood Sugar(mg/dl) (if 171 indicated): Blood Sugar Stated by Patient Height and Weight Body Mass Index (BMI) 22.4 22.4 22.4 BMI Classification Normal Normal Normal Vital Signs Temperature (97.8 F-99.1 F) 97.5 F L 97.7 F L 96.5 F L Temperature Source Temporal Temporal Temporal Pulse Rate (60-100) 111 H 100 103 H Pulse Location Monitor Monitor Monitor Respiratory Rate (12-18) 16 20 H 18 Respiratory rate source Observation Observation Observation Oxygen Delivery Method Room Air Room Air Blood Pressure (90/60-120/80) 157/83 H 139/91 H 149/64 H Blood Pressure Mean (mm Hg) 107 107 92 Source Monitor Monitor Monitor Position Sitting Sitting Blood Pressure Location Right Forearm Right Forearm History Since Last Visit- (Skip if this is Patient's initial visit) Have you changed medications since your No No No last visit? Any new allergies or adverse reactions No No No Had a fall/change in ADL's that may No No No increase risk of falls Signs or symptoms of abuse and/or No No No neglect since last visit Have you been in the hospital since your No No No last visit? Has dressing in place as prescribed Yes Yes Yes Has compression in place as prescribed Yes No Yes Has offloadiing in place as prescribed N/A N/A N/A Experienced any changes in pain level or No No No management Left Footwear Regular Shoe Regular Shoe Right Footwear Regular Shoe Regular Shoe Pain Scale: 0-10 Numeric Is Patient Pain Free? Yes Yes Yes 11/13/22 11/18/22 11:58 08:52 WC - Today's Visit Information Type of service Nurse-only Follow-up Visit Visit (Physician/BRAKE COUPLER DINKEY ) Arrival Mode Ambulatory Ambulatory Transfer Assistance None None Patient Identification Verified (Name & Yes Yes ) Patient Requires Transmission-Based No No Precautions Finger Stick Blood Sugar(mg/dl) (if indicated): Blood Sugar Height and Weight Body Mass Index (BMI) 22.4 22.4 BMI Classification Normal Normal Vital Signs Temperature (97.8 F-99.1 F) 97.9 F 96.5 F L Temperature Source Temporal Temporal Pulse Rate (60-100) 100 Pulse Location Monitor Respiratory Rate (12-18) 20 H 18 Respiratory rate source Observation Observation Oxygen Delivery Method Blood Pressure (90/60-120/80) 181/76 H Blood Pressure Mean (mm Hg) 111 Source Monitor Position Semi-Fowlers Blood Pressure Location Left Arm History Since Last Visit- (Skip if this is Patient's initial visit) Have you changed medications since your No No last visit? Any new allergies or adverse reactions No No Had a fall/change in ADL's that may No No increase risk of falls Signs or symptoms of abuse and/or No No neglect since last visit Have you been in the hospital since your No No last visit? Has dressing in place as prescribed Yes Yes Has compression in place as prescribed Yes Yes Has offloadiing in place as prescribed N/A No Experienced any changes in pain level or No No management Left Footwear Right Footwear Pain Scale: 0-10 Numeric Is Patient Pain Free? Yes Yes WC - Nurse 1 - General Ulcer Measurement Start: 10/28/22 08:50 Freq: Status: Active Protocol: Activity Type Activity Date Activity User E-sign Co-sign Detail Recorded Client Recorded Date Recorded By Document 10/28/22 08:51 [facility] [id number] 10/28/22 09:01 [facility] Document 11/04/22 09:04 DL [id number] 11/04/22 09:17 DL Document 11/11/22 08:49 [facility] [id number] 11/11/22 08:55 [facility] Document 11/13/22 11:58 DL [id number] 11/13/22 12:17 DL Document 11/18/22 08:52 RB [id number] 11/18/22 08:53 RB 10/28/22 11/04/22 11/11/22 08:51 09:04 08:49 Wound Center Nurse 1 #1 R Alcantara -Combined with other wound No No -Current Size (cm) - Length 2.1 2 2.1 -Current Size (cm) - Width 2.3 1.9 1.8 -Current Size (cm) - Depth 0.8 0.8 0.4 -Total Square Cm 4.83 3.8 3.78 -Date of Last Picture (Recall this 10/28/22 11/11/22 field) -Photo Taken Yes Yes -Epithelialization None Present None Present -Tunneling No No -Undermining/Tunneling Yes Yes -Undermining/Tunneling Starts (O'clock 2 1 2 ) -Undermining/Tunneling Ends (O'clock) 5 6 5 -Maximum Distance (cm) 1.3 1.5 2 -Circular Undermining No No -Exudate Amt Large Medium Medium -Exudate Type Serosanguineous Yellow/Green Serosanguineous -Wound Margin Distinct, Thickened & Distinct, Outline Rolled Under Outline Attached Attached -Granulation Amt Medium (34-66%) Medium (34-66%) Medium (34-66%) -Granulation Quality Red Red Red -Slough/Fibrin Yes Yes -Necrosis Amt Medium (34-66%) Medium (34-66%) Medium (34-66%) -Necrotic Tissue Type Adherent Slough Adherent Slough Adherent Slough -Structure Exposed N/A -Texture (Zenia-wound Skin Appearance) Assessed, Scarring Assessed, Fluctuance Scarring -Moisture (Zenia-wound Skin Appearance) Assessed No Abnormality Assessed -Color (Zenia-wound Skin Appearance) Assessed, Erythema Assessed Erythema -Temperature (Zenia-wound Skin No Abnormality No Abnormality No Abnormality Appearance) (Pt Warm) (Pt Warm) (Pt Warm) -Tenderness on Palpation (Zenia-wound Yes Yes No Skin Appearance) -Ulcer Cleansing Soap and Water Soap and Water Rinsed/ Irrigated with Saline -Foul Odor after Cleansing No No -Anesthetic Used 5% Lidocaine 5% Lidocaine 5% Lidocaine Gel,Cetacaine Gel Gel Lower Limb Edema Present Yes Yes Right Calf (cm) 46 46 46.2 Right Ankle (cm) 24.2 23.2 24.5 11/13/22 11/18/22 11:58 08:52 Wound Center Nurse 1 #1 R Alcantara -Combined with other wound No -Current Size (cm) - Length 1.9 -Current Size (cm) - Width 2.3 -Current Size (cm) - Depth 0.9 -Total Square Cm 4.37 -Date of Last Picture (Recall this field) -Photo Taken -Epithelialization -Tunneling No -Undermining/Tunneling Yes -Undermining/Tunneling Starts (O'clock 2 ) -Undermining/Tunneling Ends (O'clock) 5 -Maximum Distance (cm) 1.8 -Circular Undermining No -Exudate Amt Medium -Exudate Type Serosanguineous -Wound Margin Distinct, Outline Attached -Granulation Amt Large (67-100%) Medium (34-66%) -Granulation Quality Red [place] -Slough/Fibrin Yes -Necrosis Amt None Present (0 Medium (34-66%) %) -Necrotic Tissue Type Adherent Slough -Structure Exposed N/A N/A -Texture (Zenia-wound Skin Appearance) Scarring Assessed -Moisture (Zenia-wound Skin Appearance) No Abnormality Assessed -Color (Zenia-wound Skin Appearance) No Abnormality Assessed -Temperature (Zenia-wound Skin No Abnormality No Abnormality Appearance) (Pt Warm) (Pt Warm) -Tenderness on Palpation (Zenia-wound No No Skin Appearance) -Ulcer Cleansing Soap and Water Wound Cleanser -Foul Odor after Cleansing No No -Anesthetic Used 5% Lidocaine Gel Lower Limb Edema Present Yes Right Calf (cm) 44 Right Ankle (cm) 24 WC - Nurse 2 - General Ulcer CM Notes Start: 10/28/22 08:50 Freq: Status: Active Protocol: Activity Type Activity Date Activity User E-sign Co-sign Detail Recorded Client Recorded Date Recorded By Document 10/28/22 09:23 MW [id number] 10/28/22 09:27 MW Document 11/04/22 09:25 MW [id number] 11/04/22 09:34 MW Document 11/11/22 09:19 MW [id number] 11/11/22 09:22 MW Document 11/18/22 09:02 MW [id number] 11/18/22 09:07 MW 10/28/22 11/04/22 11/11/22 09:23 09:25 09:19 Wound Center Nurse 2 #1 R Alcantara -Time 09:24 09:26 09:20 -Correct Patient Yes Yes Yes -Correct Side, Site, Position Yes Yes Yes -Correct Procedure Yes Yes Yes -Procedure Performed Yes Yes Yes -Type of Procedure Debridement Debridement Debridement -Clinical Debridement Subcutaneous Subcutaneous Subcutaneous -Tissue Removed Subcutaneous Subcutaneous Subcutaneous -Post Debridement (cm) - Length 2.0 2.1 2.0 -Post Debridement (cm) - Width 2.5 2.3 2.0 -Post Debridement (cm) - Depth 0.5 0.4 0.4 -Total Square (Post) (cm) 5.00 4.83 4.00 -Area of Debridement (cm) - Length 2.0 2.1 2.0 -Area of Debridement (cm) - Width 2.5 2.3 2.0 -Total Square (Area) (cm) 5.00 4.83 4.00 -Tunneling No Yes Yes -Tunneling Position (O'clock) 6 3 -Tunneling Distance (cm) 1.7 2.5 -Undermining/Tunneling Yes Yes Yes -Undermining/Tunneling Starts (O'clock 12 2 12 ) -Undermining/Tunneling Ends (O'clock) 5 5 2 -Maximum Distance (cm) 0.6 1.0 0.7 -Circular Undermining No No No -Wound/Ulcer Outcome Not Healed Not Healed Not Healed -Ulcer Cleansing Rinsed/ Wound Cleanser Rinsed/ Irrigated with Irrigated with Saline Saline -Foul Odor after Cleansing No No No -Bioengineered Tissue No No No -Bleeding Controlled with Pressure Pressure Pressure -Treatment Response Procedure Procedure Procedure Tolerated Well Tolerated Well Tolerated Well -Offloading No No No -Debridement - Subq, 1st 20sq cm Yes Yes Yes Pain Scale: 0-10 Numeric Is Patient Pain Free? Yes Yes Yes 11/18/22 09:02 Wound Center Nurse 2 #1 R Alcantara -Time 09:04 -Correct Patient Yes -Correct Side, Site, Position Yes -Correct Procedure Yes -Procedure Performed Yes -Type of Procedure Debridement -Clinical Debridement Subcutaneous -Tissue Removed Subcutaneous -Post Debridement (cm) - Length 2.0 -Post Debridement (cm) - Width 2.0 -Post Debridement (cm) - Depth 0.4 -Total Square (Post) (cm) 4.00 -Area of Debridement (cm) - Length 2.0 -Area of Debridement (cm) - Width 2.0 -Total Square (Area) (cm) 4.00 -Tunneling Yes -Tunneling Position (O'clock) 6 -Tunneling Distance (cm) 1.0 -Undermining/Tunneling Yes -Undermining/Tunneling Starts (O'clock 2 ) -Undermining/Tunneling Ends (O'clock) 5 -Maximum Distance (cm) 0.6 -Circular Undermining No -Wound/Ulcer Outcome Not Healed -Ulcer Cleansing Rinsed/ Irrigated with Saline -Foul Odor after Cleansing No -Bioengineered Tissue No -Bleeding Controlled with Pressure -Treatment Response Procedure Tolerated Well -Offloading No -Debridement - Subq, 1st 20sq cm Yes Pain Scale: 0-10 Numeric Is Patient Pain Free? Yes WC - Nurse 3 - General Ulcer D/C NN Start: 10/28/22 08:50 Freq: Status: Active Protocol: Activity Type Activity Date Activity User E-sign Co-sign Detail Recorded Client Recorded Date Recorded By Document 10/28/22 09:38 BMF [id number] 10/28/22 09:39 BMF Document 11/04/22 09:34 MW [id number] 11/04/22 09:36 MW Document 11/11/22 09:23 MW [id number] 11/11/22 09:25 MW Document 11/13/22 11:58 DL [id number] 11/13/22 12:17 DL Edit Result 11/13/22 11:58 DL (1) [id number] 11/16/22 07:44 PL Document 11/18/22 09:21 BMF [id number] 11/18/22 09:25 BMF (1) #1 R Alcantara - NPWT Application Charge NPWT </= 50 sq cm => NPWT </= 50 sq cm ($) => (disp) ($) 10/28/22 11/04/22 11/11/22 09:38 09:34 09:23 Wound Care Center Nurse 3 #1 R Alcantara -Ulcer Cleansing Rinsed/ Rinsed/ Rinsed/ Irrigated with Irrigated with Irrigated with Saline Saline Saline -Foul Odor after Cleansing No No No -Negative Pressure Wound Therapy N/A Start -Setting (mmHg) 125 -Negative Pressure is Continuous -Primary Dressing Applied Fibracol Plus Fibracol Plus 4x4,Mepilex 4x4,Mepilex Border Border -Other Dressing snap vac -Other Covering -NPWT Application Charge NPWT </= 50 sq cm (disp) ($) -Fibracol Plus 4x4 1 1 -Mepilex Border 4 1 Right -Lotion applied to leg before No No compression wrap -Compression Wrap Te Wrap -Tubular Bandage Double Layer -Size of Tubigrip Used Size E -Size E ($) 1 -Stockings Yes Treatment Response Procedure Procedure Procedure Tolerated Well Tolerated Well Tolerated Well Vital Signs Temperature (97.8 F-99.1 F) Temperature Source Respiratory Rate (12-18) Respiratory rate source Pain Scale: 0-10 Numeric Is Patient Pain Free? Yes Yes Yes Teaching: Wound Center Dressing Your Wound -Person Taught Patient Patient -Teaching Method Discussion Discussion, Demonstration -Response to teaching Verbalize Return understanding demonstration, Verbalize understanding WC - Visit Discharge Discharge Condition Stable Stable Stable Ambulatory Status Ambulatory,Cane Ambulatory Ambulatory Transportation Private Auto Private Auto Private Auto Accompanied by self self Medication Reconcilliation completed & No No provided to patient/care provider Clinical Summary of Care Provided Yes Yes 11/13/22 11/18/22 11:58 09:21 Wound Care Center Nurse 3 #1 R Alcantara -Ulcer Cleansing Soap and Water Rinsed/ Irrigated with Saline -Foul Odor after Cleansing No No -Negative Pressure Wound Therapy Continue Continue -Setting (mmHg) 125 125 -Negative Pressure is Continuous Continuous -Primary Dressing Applied -Other Dressing SNAP APPLIED PER MW RN -Other Covering te -NPWT Application Charge NPWT </= 50 sq NPWT & cm (disp) ($) Debridement (nc ) -Fibracol Plus 4x4 -Mepilex Border Right -Lotion applied to leg before compression wrap -Compression Wrap Te Wrap -Tubular Bandage -Size of Tubigrip Used -Size E ($) -Stockings Treatment Response Procedure Procedure Tolerated Well Tolerated Well Vital Signs Temperature (97.8 F-99.1 F) 97.9 F Temperature Source Temporal Respiratory Rate (12-18) 20 H Respiratory rate source Observation Pain Scale: 0-10 Numeric Is Patient Pain Free? Yes Yes Teaching: Wound Center Dressing Your Wound -Person Taught -Teaching Method -Response to teaching WC - Visit Discharge Discharge Condition Stable Stable Ambulatory Status Ambulatory Ambulatory Transportation Private Auto Private Auto Accompanied by Medication Reconcilliation completed & provided to patient/care provider Clinical Summary of Care Provided Assessment/Plan Assessment/Plan (1) Hyperglycemia due to diabetes mellitus: CODE(S): E11.65 - Type 2 diabetes mellitus with hyperglycemia PLAN: Continue monitoring blood sugars (2) Nonhealing nonsurgical wound: CODE(S): T14.8XXA - Other injury of unspecified body region, initial encounter (3) Right leg injury: CODE(S): S89.91XA - Unspecified injury of right lower leg, initial encounter QUALIFIERS: Encounter type: initial encounter Qualified Code(s): S89.91XA - Unspecified injury of right lower leg, initial encounter PLAN: Reapplied snap VAC today with the highest compression we can put it on. Patient was instructed unable to get wet so she has a leg bag to shower with. Follow-up in 1 week. If having issues give us a call patient was taught how to apply for if she lose her suction or compression. (4) Edema of right lower extremity: CODE(S): R60.0 - Localized edema (5) Infected wound: CODE(S): T14.8XXA - Other injury of unspecified body region, initial encounter; L08.9 - Local infection of the skin and subcutaneous tissue, unspecified
== END 2022-11-23 23:59 | disposition home or self-care (01) ==
LOC: WC 13:00
PROVIDERS: PCP Family Medicine; Referring Provider Family Medicine; Visit Provider Nurse Practitioner
DX: L97.812 Non-pressure chronic ulcer of other part of right lower leg with fat layer exposed (principal); E11.65 Type 2 diabetes mellitus with hyperglycemia; L08.9 Local infection of the skin and subcutaneous tissue, unspecified; R60.0 Localized edema; S89.91XS Unspecified injury of right lower leg, sequela; W13 Fall from, out of or through building or structure; Y93.01 Activity, walking, marching and hiking; M23.91 Unspecified internal derangement of right knee
CPT/HCPCS: 11042; 97605; 97607

== ENCOUNTER 2022-12-23 09:15 | Outpatient (RCR) | payer BC, SELFPAY ==
[2022-11-24 00:22] VITALS: BP 181/76; PULSE 100; RESP 18; TEMP 35.8; BMI 22.4
[2022-11-25 08:47] VITALS: BP 99/76; PULSE 82; RESP 18; TEMP 36.4; BMI 22.4
--- NOTE | 2022-11-25 09:59 | PCM.WC.PN ---
History of Present Illness Date of Service: 11/25/22 Chief Complaint: Follow-up on traumatic wound right lower leg History of Wound: 57-year-old white female diabetic was walking across a bridge that collapsed over Labor memorial weekend of September 20. Leg went through wood and had wood sticking out of her wound. Patient thought she got it all out but was also in a [place]. but ended up going to emergency room that did nothing and then she went to her family doctor and he basically put her on water pills and got an ultrasound which showed negative for blood clot they finally decided she had cellulitis and put her on Bactrim DS after the third urgent care. Patient states there is no cultures ever taken and no x-rays of her leg ultrasound really did not look for foreign body but found that everything was compressible and there is no issues with blood clots. Progress of Wound: Measurements are shallow and smaller using the snap VAC. Patient is tolerating well undermining is decreasing. No signs of infection at this time. We will continue the snap VAC Subjective Subjective Patient is very pleased with outcome so far and with measurements Objective Data Objective Data As stated above no sign of infection no odor no drainage debride for fibrin material. Undermining and measurements are smaller. Patient tolerant to the snap VAC very good Vital Signs: Vital Signs Temp Pulse Resp BP 97.5 F L 82 18 99/76 11/25/22 08:47 11/25/22 08:47 11/25/22 08:47 11/25/22 08:47 Weight: 135 lb Body Mass Index (BMI) 22.4 Lab / Micro Data Attestation: I reviewed the patient's lab results. Physical Exam Const oriented x3 General Appearance: cooperative Exam Limitations: no limitations HEENT normocephalic Head and Scalp: normal to inspection Face and Sinus: normal facial exam Nose: external nose normal General Ear: hearing grossly impaired External Ear: external ears normal Mouth: oral and palatal mucosa normal Eyes PERRL General Eye: normal appearance of both eyes Neck full ROM General: normal visual inspection Resp normal respiratory effort Effort and Inspection: able to speak in complete sentences Auscultation: clear to auscultation bilaterally Cardio regular rate and regular rhythm Palpation: normal PMI Rate: regular rate Rhythm: regular rhythm GI Auscultation: normoactive bowel sounds Palpation: soft and no hepatosplenomegaly external exam normal Back/Spine Cervical Spine: cervical ROM normal Thoracic Spine / Upper Back: normal to inspection Lumbar Spine / Lower Back: normal to inspection Extremity normal to inspection General Extremity: normal exam except as noted Skin no rashes or lesions noted Neuro oriented x3 Psych Appearance: grossly normal Speech: normal speech Thought Content: normal thought content Judgement: judgement good Debridement Note Debridement Note Post-Debridement Measurements and Additional Note: Post-Debridement Measurements/Treatment LAURENCE - Nurse 1 - General Ulcer Assessment Start: 11/25/22 08:47 Freq: Status: Active Protocol: MEENU Activity Type Activity Date Activity User E-sign Co-sign Detail Recorded Client Recorded Date Recorded By Document 11/25/22 08:47 RAHEEM [id number] 11/25/22 08:49 RAHEEM 11/25/22 08:47 LAURENCE - Today's Visit Information Type of service Follow-up Visit (Physician/LEGAL ADVISER ) Arrival Mode Ambulatory Transfer Assistance None Patient Identification Verified (Name & Yes ) Patient Requires Transmission-Based No Precautions Height and Weight Body Mass Index (BMI) 22.4 BMI Classification Normal Vital Signs Temperature (97.8 F-99.1 F) 97.5 F L Temperature Source Temporal Pulse Rate (60-100) 82 Pulse Location Monitor Respiratory Rate (12-18) 18 Respiratory rate source Observation Blood Pressure (90/60-120/80) 99/76 Blood Pressure Mean (mm Hg) 83 Source Monitor Position Semi-Fowlers Blood Pressure Location Left Arm History Since Last Visit- (Skip if this is Patient's initial visit) Have you changed medications since your No last visit? Any new allergies or adverse reactions No Had a fall/change in ADL's that may No increase risk of falls Signs or symptoms of abuse and/or No neglect since last visit Have you been in the hospital since your No last visit? Has dressing in place as prescribed Yes Has compression in place as prescribed Yes Has offloadiing in place as prescribed No Experienced any changes in pain level or No management Pain Scale: 0-10 Numeric Is Patient Pain Free? Yes LAURENCE - Nurse 1 - General Ulcer Measurement Start: 11/25/22 08:47 Freq: Status: Active Protocol: Activity Type Activity Date Activity User E-sign Co-sign Detail Recorded Client Recorded Date Recorded By Document 11/25/22 08:47 RAHEEM [id number] 11/25/22 08:49 RB 11/25/22 08:47 Wound Center Nurse 1 #1 R Vivas -Combined with other wound No -Current Size (cm) - Length 1.8 -Current Size (cm) - Width 2 -Current Size (cm) - Depth 0.3 -Total Square Cm 3.6 -Tunneling No -Undermining/Tunneling Yes -Undermining/Tunneling Starts (O'clock 3 ) -Undermining/Tunneling Ends (O'clock) 5 -Maximum Distance (cm) 0.5 -Exudate Amt Medium -Exudate Type Serosanguineous -Wound Margin Distinct, Outline Attached -Granulation Amt Medium (34-66%) -Granulation Quality [place] -Slough/Fibrin Yes -Necrosis Amt None Present (0 %) -Necrotic Tissue Type Adherent Slough -Structure Exposed N/A -Texture (Zenia-wound Skin Appearance) Assessed -Moisture (Zenia-wound Skin Appearance) Assessed -Color (Zenia-wound Skin Appearance) Assessed -Temperature (Zenia-wound Skin No Abnormality Appearance) (Pt Warm) -Tenderness on Palpation (Zenia-wound No Skin Appearance) -Ulcer Cleansing Wound Cleanser -Foul Odor after Cleansing No -Anesthetic Used 5% Lidocaine Gel Lower Limb Edema Present Yes Right Calf (cm) 47 Right Ankle (cm) 25 WC - Nurse 2 - General Ulcer CM Notes Start: 11/25/22 08:47 Freq: Status: Active Protocol: Activity Type Activity Date Activity User E-sign Co-sign Detail Recorded Client Recorded Date Recorded By Document 11/25/22 09:18 MW [id number] 11/25/22 09:19 MW 11/25/22 09:18 Wound Center Nurse 2 #1 R Vivas -Time 09:18 -Correct Patient Yes -Correct Side, Site, Position Yes -Correct Procedure Yes -Procedure Performed Yes -Type of Procedure Debridement -Clinical Debridement Subcutaneous -Tissue Removed Subcutaneous -Post Debridement (cm) - Length 2.0 -Post Debridement (cm) - Width 1.5 -Post Debridement (cm) - Depth 0.3 -Total Square (Post) (cm) 3.00 -Area of Debridement (cm) - Length 2.0 -Area of Debridement (cm) - Width 1.5 -Total Square (Area) (cm) 3.00 -Tunneling Yes -Tunneling Position (O'clock) 5 -Tunneling Distance (cm) 0.9 -Undermining/Tunneling Yes -Undermining/Tunneling Starts (O'clock 2 ) -Undermining/Tunneling Ends (O'clock) 4 -Maximum Distance (cm) 0.4 -Circular Undermining No -Wound/Ulcer Outcome Not Healed -Ulcer Cleansing Rinsed/ Irrigated with Saline -Foul Odor after Cleansing No -Bioengineered Tissue No -Bleeding Controlled with Pressure -Treatment Response Procedure Tolerated Well -Debridement - Subq, 1st 20sq cm Yes Pain Scale: 0-10 Numeric Is Patient Pain Free? Yes - Nurse 3 - General Ulcer D/C NN Start: 11/25/22 08:47 Freq: Status: Active Protocol: Activity Type Activity Date Activity User E-sign Co-sign Detail Recorded Client Recorded Date Recorded By Document 11/25/22 09:55 MW [id number] 11/25/22 09:56 MW 11/25/22 09:55 Wound Care Center Nurse 3 #1 R Vivas -Ulcer Cleansing Rinsed/ Irrigated with Saline -Foul Odor after Cleansing No -Negative Pressure Wound Therapy Continue -Setting (mmHg) 125 -Negative Pressure is Continuous -Other Dressing blue foam -NPWT Application Charge NPWT </= 50 sq cm (disp) ($) Right -Lotion applied to leg before No compression wrap -Other single layer tubigrip Treatment Response Procedure Tolerated Well Pain Scale: 0-10 Numeric Is Patient Pain Free? Yes Teaching: Wound Center Dressing Your Wound -Person Taught Patient -Teaching Method Discussion, Demonstration -Response to teaching Verbalize understanding WC - Visit Discharge Discharge Condition Stable Ambulatory Status Ambulatory Transportation Private Auto Accompanied by self Medication Reconcilliation completed & No provided to patient/care provider Clinical Summary of Care Provided Yes Assessment/Plan Assessment/Plan (1) Hyperglycemia due to diabetes mellitus: CODE(S): E11.65 - Type 2 diabetes mellitus with hyperglycemia PLAN: Continue monitoring blood sugars (2) Nonhealing nonsurgical wound: CODE(S): T14.8XXA - Other injury of unspecified body region, initial encounter (3) Right leg injury: CODE(S): S89.91XA - Unspecified injury of right lower leg, initial encounter QUALIFIERS: Encounter type: initial encounter Qualified Code(s): S89.91XA - Unspecified injury of right lower leg, initial encounter PLAN: Reapplied snap VAC today with the highest compression we can put it on. Patient was instructed unable to get wet so she has a leg bag to shower with. Follow-up in 1 week. If having issues give us a call patient was taught how to apply for if she lose her suction or compression. (4) Edema of right lower extremity: CODE(S): R60.0 - Localized edema (5) Infected wound: CODE(S): T14.8XXA - Other injury of unspecified body region, initial encounter; L08.9 - Local infection of the skin and subcutaneous tissue, unspecified
[2022-12-02 08:47] VITALS: BP 158/64; PULSE 91; RESP 20; TEMP 35.7; BMI 22.4
--- NOTE | 2022-12-02 09:59 | PCM.WC.PN ---
History of Present Illness Date of Service: 12/02/22 Chief Complaint: Follow-up on traumatic wound right lower leg History of Wound: 57-year-old white female diabetic was walking across a bridge that collapsed over Labor memorial weekend of September 20. Leg went through wood and had wood sticking out of her wound. Patient thought she got it all out but was also in a [place]. but ended up going to emergency room that did nothing and then she went to her family doctor and he basically put her on water pills and got an ultrasound which showed negative for blood clot they finally decided she had cellulitis and put her on Bactrim DS after the third urgent care. Patient states there is no cultures ever taken and no x-rays of her leg ultrasound really did not look for foreign body but found that everything was compressible and there is no issues with blood clots. Progress of Wound: Measurements are shallow and smaller using the snap VAC. Patient is tolerating well undermining is decreasing. No signs of infection at this time. Patient was finally approved for EpiFix after she left we will start it next week. In the meantime we will start her on Promogran to the undermining and to the base of the wound. Covered with Adaptic and an absorbent dressing Subjective Subjective Patient is happy with outcomes Objective Data Objective Data Will start EpiFix #1 next week in the meantime she will use Promogran and Adaptic to the wound base Will add better compression double layer. No sign of infection no redness no swelling no discharge. Little discharge in her wound VAC Vital Signs: Vital Signs Temp Pulse Resp BP 96.2 F L 91 20 H 158/64 H 12/02/22 08:47 12/02/22 08:47 12/02/22 08:47 12/02/22 08:47 Weight: 135 lb Body Mass Index (BMI) 22.4 Lab / Micro Data Attestation: I reviewed the patient's lab results. Debridement Note Debridement Note Wound debrided: Right [place] traumatic wound Laterality: Right Type of Debridement: Excisional debridement Anesthesia Used: 5% Lidocaine Gel Depth: in the subcutaneous layer Percentage of wound debrided: 100 Instrument Used: 5mm curette Tissue Removed: Fibrin Severity: Fat Layer Exposed Amount of bleeding with debridement: None Bleeding Controlled with: Compression and gauze Patient tolerated procedure: Patient tolerated procedure well Post-Debridement Measurements and Additional Note: Post-Debridement Measurements/Treatment WC - Nurse 1 - General Ulcer Assessment Start: 11/25/22 08:47 Freq: Status: Active Protocol: MEENU Activity Type Activity Date Activity User E-sign Co-sign Detail Recorded Client Recorded Date Recorded By Document 11/25/22 08:47 RB [id number] 11/25/22 08:49 RB Document 12/02/22 08:47 DL [id number] 12/02/22 08:53 DL 11/25/22 12/02/22 08:47 08:47 WC - Today's Visit Information Type of service Follow-up Visit Follow-up Visit (Physician/ASSISTANT PROFESSOR OF RELIGION (Physician/ASSISTANT PROFESSOR OF RELIGION ) ) Arrival Mode Ambulatory Ambulatory Transfer Assistance None None Patient Identification Verified (Name & Yes Yes ) Patient Requires Transmission-Based No No Precautions Finger Stick Blood Sugar(mg/dl) (if 121 indicated): Blood Sugar Stated by Patient Height and Weight Body Mass Index (BMI) 22.4 22.4 BMI Classification Normal Normal Vital Signs Temperature (97.8 F-99.1 F) 97.5 F L 96.2 F L Temperature Source Temporal Temporal Pulse Rate (60-100) 82 91 Pulse Location Monitor Monitor Respiratory Rate (12-18) 18 20 H Respiratory rate source Observation Observation Blood Pressure (90/60-120/80) 99/76 158/64 H Blood Pressure Mean (mm Hg) 83 95 Source Monitor Monitor Position Semi-Fowlers Blood Pressure Location Left Arm History Since Last Visit- (Skip if this is Patient's initial visit) Have you changed medications since your No No last visit? Any new allergies or adverse reactions No No Had a fall/change in ADL's that may No No increase risk of falls Signs or symptoms of abuse and/or No No neglect since last visit Have you been in the hospital since your No No last visit? Has dressing in place as prescribed Yes Yes Has compression in place as prescribed Yes Yes Has offloadiing in place as prescribed No N/A Experienced any changes in pain level or No No management Pain Scale: 0-10 Numeric Is Patient Pain Free? Yes Yes - Nurse 1 - General Ulcer Measurement Start: 11/25/22 08:47 Freq: Status: Active Protocol: Activity Type Activity Date Activity User E-sign Co-sign Detail Recorded Client Recorded Date Recorded By Document 11/25/22 08:47 RB [id number] 11/25/22 08:49 RB Document 12/02/22 08:47 DL [id number] 12/02/22 08:53 DL 11/25/22 12/02/22 08:47 08:47 Wound Center Nurse 1 #1 R [place] -Combined with other wound No -Current Size (cm) - Length 1.8 2.1 -Current Size (cm) - Width 2 1.8 -Current Size (cm) - Depth 0.3 0.3 -Total Square Cm 3.6 3.78 -Tunneling No -Undermining/Tunneling Yes -Undermining/Tunneling Starts (O'clock 3 3 ) -Undermining/Tunneling Ends (O'clock) 5 5 -Maximum Distance (cm) 0.5 0.3 -Exudate Amt Medium Small -Exudate Type Serosanguineous Serosanguineous -Wound Margin Distinct, Distinct, Outline Outline Attached Attached -Granulation Amt Medium (34-66%) Large (67-100%) -Granulation Quality [place] Red -Slough/Fibrin Yes -Necrosis Amt None Present (0 None Present (0 %) %) -Necrotic Tissue Type Adherent Slough -Structure Exposed N/A N/A -Texture (Zenia-wound Skin Appearance) Assessed Scarring -Moisture (Zenia-wound Skin Appearance) Assessed No Abnormality -Color (Zenia-wound Skin Appearance) Assessed No Abnormality -Temperature (Zenia-wound Skin No Abnormality No Abnormality Appearance) (Pt Warm) (Pt Warm) -Tenderness on Palpation (Zenia-wound No Skin Appearance) -Ulcer Cleansing Wound Cleanser Soap and Water -Foul Odor after Cleansing No No -Anesthetic Used 5% Lidocaine 5% Lidocaine Gel Gel Lower Limb Edema Present Yes Right Calf (cm) 47 45.5 Right Ankle (cm) 25 24.5 WC - Nurse 2 - General Ulcer CM Notes Start: 11/25/22 08:47 Freq: Status: Active Protocol: Activity Type Activity Date Activity User E-sign Co-sign Detail Recorded Client Recorded Date Recorded By Document 11/25/22 09:18 MW [id number] 11/25/22 09:19 MW Document 12/02/22 09:04 MW [id number] 12/02/22 09:08 MW 11/25/22 12/02/22 09:18 09:04 Wound Center Nurse 2 #1 R [place] -Time 09:18 09:05 -Correct Patient Yes Yes -Correct Side, Site, Position Yes Yes -Correct Procedure Yes Yes -Procedure Performed Yes Yes -Type of Procedure Debridement Debridement -Clinical Debridement Subcutaneous Subcutaneous -Tissue Removed Subcutaneous Subcutaneous -Post Debridement (cm) - Length 2.0 2.0 -Post Debridement (cm) - Width 1.5 1.5 -Post Debridement (cm) - Depth 0.3 0.3 -Total Square (Post) (cm) 3.00 3.00 -Area of Debridement (cm) - Length 2.0 2.0 -Area of Debridement (cm) - Width 1.5 1.5 -Total Square (Area) (cm) 3.00 3.00 -Tunneling Yes No -Tunneling Position (O'clock) 5 -Tunneling Distance (cm) 0.9 -Undermining/Tunneling Yes No -Undermining/Tunneling Starts (O'clock 2 ) -Undermining/Tunneling Ends (O'clock) 4 -Maximum Distance (cm) 0.4 -Circular Undermining No No -Wound/Ulcer Outcome Not Healed Not Healed -Ulcer Cleansing Rinsed/ Rinsed/ Irrigated with Irrigated with Saline Saline -Foul Odor after Cleansing No No -Bioengineered Tissue No No -Bleeding Controlled with Pressure Pressure -Treatment Response Procedure Procedure Tolerated Well Tolerated Well -Offloading No -Debridement - Subq, 1st 20sq cm Yes Yes Pain Scale: 0-10 Numeric Is Patient Pain Free? Yes Yes WC - Nurse 3 - General Ulcer D/C NN Start: 11/25/22 08:47 Freq: Status: Active Protocol: Activity Type Activity Date Activity User E-sign Co-sign Detail Recorded Client Recorded Date Recorded By Document 11/25/22 09:55 MW [id number] 11/25/22 09:56 MW Document 12/02/22 09:09 MW [id number] 12/02/22 09:10 MW 11/25/22 12/02/22 09:55 09:09 Wound Care Center Nurse 3 #1 R [place] -Ulcer Cleansing Rinsed/ Rinsed/ Irrigated with Irrigated with Saline Saline -Foul Odor after Cleansing No No -Negative Pressure Wound Therapy Continue N/A -Setting (mmHg) 125 -Negative Pressure is Continuous -Primary Dressing Applied Mepilex Border, Promogran -Other Dressing blue foam -NPWT Application Charge NPWT </= 50 sq cm (disp) ($) -Mepilex Border 1 -Promogran 1 Right -Lotion applied to leg before No No compression wrap -Tubular Bandage Double Layer -Size of Tubigrip Used Size D -Size D ($) 1 -Other single layer tubigrip Treatment Response Procedure Procedure Tolerated Well Tolerated Well Pain Scale: 0-10 Numeric Is Patient Pain Free? Yes Yes Teaching: Wound Center Dressing Your Wound -Person Taught Patient Patient -Teaching Method Discussion, Discussion, Demonstration Demonstration -Response to teaching Verbalize Verbalize understanding understanding WC - Visit Discharge Discharge Condition Stable Stable Ambulatory Status Ambulatory Ambulatory Transportation Private Auto Private Auto Accompanied by self self Medication Reconcilliation completed & No No provided to patient/care provider Clinical Summary of Care Provided Yes Yes Assessment/Plan Assessment/Plan (1) Hyperglycemia due to diabetes mellitus: CODE(S): E11.65 - Type 2 diabetes mellitus with hyperglycemia PLAN: Continue monitoring blood sugars (2) Nonhealing nonsurgical wound: CODE(S): T14.8XXA - Other injury of unspecified body region, initial encounter (3) Right leg injury: CODE(S): S89.91XA - Unspecified injury of right lower leg, initial encounter QUALIFIERS: Encounter type: subsequent encounter Qualified Code(s): S89.91XD - Unspecified injury of right lower leg, subsequent encounter PLAN: EpiFix #1 will be applied next week patient was approved after patient left. Will start with Promogran to wound base and undermining area topped with Adaptic and absorbent dressing Daily dressings Follow-up in 1 week (4) Edema of right lower extremity: CODE(S): R60.0 - Localized edema (5) Infected wound: CODE(S): T14.8XXA - Other injury of unspecified body region, initial encounter; L08.9 - Local infection of the skin and subcutaneous tissue, unspecified
[2022-12-09 08:54] VITALS: BP 131/80; PULSE 76; RESP 16; TEMP 36.1; BMI 22.4
--- NOTE | 2022-12-09 12:03 | PCM.WC.PN ---
History of Present Illness Date of Service: 12/09/22 Chief Complaint: Follow-up on traumatic wound right lower leg History of Wound: 57-year-old white female diabetic was walking across a bridge that collapsed over Labor memorial weekend of September 20. Leg went through wood and had wood sticking out of her wound. Patient thought she got it all out but was also in a solomon. but ended up going to emergency room that did nothing and then she went to her family doctor and he basically put her on water pills and got an ultrasound which showed negative for blood clot they finally decided she had cellulitis and put her on Bactrim DS after the third urgent care. Patient states there is no cultures ever taken and no x-rays of her leg ultrasound really did not look for foreign body but found that everything was compressible and there is no issues with blood clots. Progress of Wound: Patient was approved for EpiFix we will apply #1 today. Had little bit of an odor so week with that cultures. Still has some slight undermining on the lateral medial side of the wound. Healing nicely. She denies any pain or swelling no redness or pus. Subjective Subjective Patient is pleased with outcomes and happy to start the EpiFix Objective Data Objective Data We will get cultures and call with results. EpiFix #1 applied with veil and an Aquacel covering for protection. Vital Signs: Vital Signs Temp Pulse Resp BP O2 Del Method 97 F L 76 16 131/80 H Room Air 12/09/22 08:54 12/09/22 08:54 12/09/22 08:54 12/09/22 08:54 12/09/22 08:54 Oxygen Delivery Method Room Air Weight: 135 lb Body Mass Index (BMI) 22.4 Physical Exam Const oriented x3 General Appearance: cooperative Exam Limitations: no limitations HEENT normocephalic Head and Scalp: normal to inspection Face and Sinus: normal facial exam Nose: external nose normal General Ear: hearing grossly impaired External Ear: external ears normal Mouth: oral and palatal mucosa normal Eyes PERRL General Eye: normal appearance of both eyes Neck full ROM General: normal visual inspection Resp normal respiratory effort Effort and Inspection: able to speak in complete sentences Auscultation: clear to auscultation bilaterally Cardio regular rate and regular rhythm Palpation: normal PMI Rate: regular rate Rhythm: regular rhythm GI Auscultation: normoactive bowel sounds Palpation: soft and no hepatosplenomegaly external exam normal Back/Spine Cervical Spine: cervical ROM normal Thoracic Spine / Upper Back: normal to inspection Lumbar Spine / Lower Back: normal to inspection Extremity normal to inspection General Extremity: normal exam except as noted Skin no rashes or lesions noted Neuro oriented x3 Psych Appearance: grossly normal Speech: normal speech Thought Content: normal thought content Judgement: judgement good Debridement Note Debridement Note Wound debrided: Right alcantara traumatic wound Type of Debridement: Excisional debridement Anesthesia Used: 5% Lidocaine Gel Depth: Down to and including healthy tissue and in the subcutaneous layer Percentage of wound debrided: 100 Instrument Used: 3mm curette Tissue Removed: Fibrin Severity: Fat Layer Exposed Amount of bleeding with debridement: Mild Bleeding Controlled with: Compression and gauze Patient tolerated procedure: Patient tolerated procedure well Post-Debridement Measurements and Additional Note: Post-Debridement Measurements/Treatment WC - Nurse 1 - General Ulcer Assessment Start: 11/25/22 08:47 Freq: Status: Active Protocol: MEENU Activity Type Activity Date Activity User E-sign Co-sign Detail Recorded Client Recorded Date Recorded By Document 11/25/22 08:47 RB [id number] 11/25/22 08:49 RB Document 12/02/22 08:47 DL [id number] 12/02/22 08:53 DL Document 12/09/22 08:54 BM [id number] 12/09/22 09:05 BMF 11/25/22 12/02/22 12/09/22 08:47 08:47 08:54 - Today's Visit Information Type of service Follow-up Visit Follow-up Visit Follow-up Visit (Physician/DUCK FARMER (Physician/DUCK FARMER (Physician/DUCK FARMER ) ) ) Arrival Mode Ambulatory Ambulatory Ambulatory Transfer Assistance None None None Patient Identification Verified (Name & Yes Yes Yes ) Patient Requires Transmission-Based No No No Precautions Finger Stick Blood Sugar(mg/dl) (if 121 indicated): Blood Sugar Stated by Patient Height and Weight Body Mass Index (BMI) 22.4 22.4 22.4 BMI Classification Normal Normal Normal Vital Signs Temperature (97.8 F-99.1 F) 97.5 F L 96.2 F L 97 F L Temperature Source Temporal Temporal Temporal Pulse Rate (60-100) 82 91 76 Pulse Location Monitor Monitor Monitor Respiratory Rate (12-18) 18 20 H 16 Respiratory rate source Observation Observation Observation Oxygen Delivery Method Room Air Blood Pressure (90/60-120/80) 99/76 158/64 H 131/80 H Blood Pressure Mean (mm Hg) 83 95 97 Source Monitor Monitor Monitor Position Semi-Fowlers Sitting Blood Pressure Location Left Arm Right Arm History Since Last Visit- (Skip if this is Patient's initial visit) Have you changed medications since your No No No last visit? Any new allergies or adverse reactions No No No Had a fall/change in ADL's that may No No No increase risk of falls Signs or symptoms of abuse and/or No No No neglect since last visit Have you been in the hospital since your No No No last visit? Has dressing in place as prescribed Yes Yes Yes Has compression in place as prescribed Yes Yes Yes Has offloadiing in place as prescribed No N/A N/A Experienced any changes in pain level or No No No management Left Footwear Regular Shoe Right Footwear Regular Shoe Pain Scale: 0-10 Numeric Is Patient Pain Free? Yes Yes Yes WC - Nurse 1 - General Ulcer Measurement Start: 11/25/22 08:47 Freq: Status: Active Protocol: Activity Type Activity Date Activity User E-sign Co-sign Detail Recorded Client Recorded Date Recorded By Document 11/25/22 08:47 RB [id number] 11/25/22 08:49 RB Document 12/02/22 08:47 DL [id number] 12/02/22 08:53 DL Document 12/09/22 08:54 [facility] [id number] 12/09/22 09:05 BMF 11/25/22 12/02/22 12/09/22 08:47 08:47 08:54 Wound Center Nurse 1 #1 R Alcantara -Combined with other wound No No -Current Size (cm) - Length 1.8 2.1 1.8 -Current Size (cm) - Width 2 1.8 1.5 -Current Size (cm) - Depth 0.3 0.3 0.3 -Total Square Cm 3.6 3.78 2.70 -Date of Last Picture (Recall this 12/09/22 field) -Photo Taken Yes -Epithelialization Small 1-33% -Tunneling No No -Undermining/Tunneling Yes Yes -Undermining/Tunneling Starts (O'clock 3 3 1 ) -Undermining/Tunneling Ends (O'clock) 5 5 4 -Maximum Distance (cm) 0.5 0.3 0.2 -Circular Undermining No -Exudate Amt Medium Small Medium -Exudate Type Serosanguineous Serosanguineous Serosanguineous -Wound Margin Distinct, Distinct, Distinct, Outline Outline Outline Attached Attached Attached -Granulation Amt Medium (34-66%) Large (67-100%) Large (67-100%) -Granulation Quality [place] Red Red -Slough/Fibrin Yes Yes -Necrosis Amt None Present (0 None Present (0 Small (1-33%) %) %) -Necrotic Tissue Type Adherent Slough Adherent Slough -Structure Exposed N/A N/A -Texture (Zenia-wound Skin Appearance) Assessed Scarring Assessed -Moisture (Zenia-wound Skin Appearance) Assessed No Abnormality Assessed -Color (Zenia-wound Skin Appearance) Assessed No Abnormality Assessed -Temperature (Zenia-wound Skin No Abnormality No Abnormality No Abnormality Appearance) (Pt Warm) (Pt Warm) (Pt Warm) -Tenderness on Palpation (Zenia-wound No No Skin Appearance) -Ulcer Cleansing Wound Cleanser Soap and Water Rinsed/ Irrigated with Saline -Foul Odor after Cleansing No No No -Anesthetic Used 5% Lidocaine 5% Lidocaine 5% Lidocaine Gel Gel Gel Lower Limb Edema Present Yes Yes Right Calf (cm) 47 45.5 45.8 Right Ankle (cm) 25 24.5 24 WC - Nurse 2 - General Ulcer CM Notes Start: 11/25/22 08:47 Freq: Status: Active Protocol: Activity Type Activity Date Activity User E-sign Co-sign Detail Recorded Client Recorded Date Recorded By Document 11/25/22 09:18 MW [id number] 11/25/22 09:19 MW Document 12/02/22 09:04 MW [id number] 12/02/22 09:08 MW Document 12/09/22 09:14 MW [id number] 12/09/22 09:24 MW 11/25/22 12/02/22 12/09/22 09:18 09:04 09:14 Wound Center Nurse 2 #1 R Alcantara -Time 09:18 09:05 09:19 -Correct Patient Yes Yes Yes -Correct Side, Site, Position Yes Yes Yes -Correct Procedure Yes Yes Yes -Procedure Performed Yes Yes Yes -Type of Procedure Debridement Debridement Debridement -Clinical Debridement Subcutaneous Subcutaneous Subcutaneous -Tissue Removed Subcutaneous Subcutaneous Subcutaneous -Post Debridement (cm) - Length 2.0 2.0 1.7 -Post Debridement (cm) - Width 1.5 1.5 1.3 -Post Debridement (cm) - Depth 0.3 0.3 0.3 -Total Square (Post) (cm) 3.00 3.00 2.21 -Area of Debridement (cm) - Length 2.0 2.0 1.7 -Area of Debridement (cm) - Width 1.5 1.5 1.3 -Total Square (Area) (cm) 3.00 3.00 2.21 -Tunneling Yes No -Tunneling Position (O'clock) 5 -Tunneling Distance (cm) 0.9 -Undermining/Tunneling Yes No Yes -Undermining/Tunneling Starts (O'clock 2 1 ) -Undermining/Tunneling Ends (O'clock) 4 5 -Maximum Distance (cm) 0.4 0.2 -Circular Undermining No No No -Wound/Ulcer Outcome Not Healed Not Healed Not Healed -Ulcer Cleansing Rinsed/ Rinsed/ Rinsed/ Irrigated with Irrigated with Irrigated with Saline Saline Saline -Foul Odor after Cleansing No No No -Bioengineered Tissue No No Yes -Type of Bioengineered Tissue Epifix 18mm Disc -Expiration Date 08/25/27 -Product Lot Number [id number] -Percent Used 100 -Lot number of Saline Used [id number] -Bleeding Controlled with Pressure Pressure Pressure -Treatment Response Procedure Procedure Procedure Tolerated Well Tolerated Well Tolerated Well -Offloading No No -Debridement - Subq, 1st 20sq cm Yes Yes No -Apply Skin Sub - 1st 25 sq cm - Legs 1 -Epifix 18mm Disc 3 Pain Scale: 0-10 Numeric Is Patient Pain Free? Yes Yes Yes WC - Nurse 3 - General Ulcer D/C NN Start: 11/25/22 08:47 Freq: Status: Active Protocol: Activity Type Activity Date Activity User E-sign Co-sign Detail Recorded Client Recorded Date Recorded By Document 11/25/22 09:55 MW [id number] 11/25/22 09:56 MW Document 12/02/22 09:09 MW [id number] 12/02/22 09:10 MW Document 12/09/22 09:27 BMF [id number] 12/09/22 09:29 BMF 11/25/22 12/02/22 12/09/22 09:55 09:09 09:27 Wound Care Center Nurse 3 #1 R Alcantara -Ulcer Cleansing Rinsed/ Rinsed/ Irrigated with Irrigated with Saline Saline -Foul Odor after Cleansing No No -Negative Pressure Wound Therapy Continue N/A -Setting (mmHg) 125 -Negative Pressure is Continuous -Primary Dressing Applied Mepilex Border, Mepilex Border Promogran -Other Dressing blue foam epifix -NPWT Application Charge NPWT </= 50 sq cm (disp) ($) -Mepilex Border 1 1 -Promogran 1 Right -Lotion applied to leg before No No compression wrap -Tubular Bandage Double Layer Double Layer -Size of Tubigrip Used Size D Size D -Size D ($) 1 2 -Other single layer tubigrip Treatment Response Procedure Procedure Procedure Tolerated Well Tolerated Well Tolerated Well Pain Scale: 0-10 Numeric Is Patient Pain Free? Yes Yes Yes Teaching: Wound Center Dressing Your Wound -Person Taught Patient Patient -Teaching Method Discussion, Discussion, Demonstration Demonstration -Response to teaching Verbalize Verbalize understanding understanding WC - Visit Discharge Discharge Condition Stable Stable Stable Ambulatory Status Ambulatory Ambulatory Ambulatory Transportation Private Auto Private Auto Private Auto Accompanied by self self Medication Reconcilliation completed & No No provided to patient/care provider Clinical Summary of Care Provided Yes Yes Assessment/Plan Assessment/Plan (1) Hyperglycemia due to diabetes mellitus: CODE(S): E11.65 - Type 2 diabetes mellitus with hyperglycemia PLAN: Continue monitoring blood sugars (2) Nonhealing nonsurgical wound: CODE(S): T14.8XXA - Other injury of unspecified body region, initial encounter (3) Right leg injury: CODE(S): S89.91XA - Unspecified injury of right lower leg, initial encounter QUALIFIERS: Encounter type: subsequent encounter Qualified Code(s): S89.91XD - Unspecified injury of right lower leg, subsequent encounter PLAN: EpiFix #1 will be applied with wound veil and a Aquacel over top with a absorbent dressing Cultures obtained we will go ahead and call her when we get the results sent Do not get the dressing wet Follow-up in 1 week (4) Edema of right lower extremity: CODE(S): R60.0 - Localized edema (5) Infected wound: CODE(S): T14.8XXA - Other injury of unspecified body region, initial encounter; L08.9 - Local infection of the skin and subcutaneous tissue, unspecified
[2022-12-16 09:30] VITALS: BP 152/55; PULSE 84; RESP 16; TEMP 35.8; BMI 22.4
--- NOTE | 2022-12-16 12:22 | PN.PCM_ITS ---
History of Present Illness Date of Service: 12/16/22 Chief Complaint: Follow-up on traumatic wound right lower leg History of Wound: 57-year-old white female diabetic was walking across a bridge that collapsed over Labor memorial weekend of September 20. Leg went through wood and had wood sticking out of her wound. Patient thought she got it all out but was also in a [place]. but ended up going to emergency room that did nothing and then she went to her family doctor and he basically put her on water pills and got an ultrasound which showed negative for blood clot they finally decided she had cellulitis and put her on Bactrim DS after the third urgent care. Patient states there is no cultures ever taken and no x-rays of her leg ultrasound really did not look for foreign body but found that everything was compressible and there is no issues with blood clots. Progress of Wound: Patient was approved for EpiFix we will apply #3 today. Cultures were positive patient was started on Levaquin the smell is better. No anaerobes noted. Still has some slight undermining on the lateral medial side of the wound. Healing nicely. She denies any pain or swelling no redness or pus. Measurements are smaller are smaller Subjective Subjective Patient is happy with outcomes Objective Data Objective Data Skin buds are being noted in the base of the wound undermining is much better. We will continue using EpiFix cyst and antibiotic therapy for her infection. Vital Signs: Vital Signs Temp Pulse Resp BP O2 Del Method 96.5 F L 84 16 152/55 H Room Air 12/16/22 09:30 12/16/22 09:30 12/16/22 09:30 12/16/22 09:30 12/16/22 09:30 Oxygen Delivery Method Room Air Weight: 135 lb Body Mass Index (BMI) 22.4 Lab / Micro Data Micro: Microbiology 12/09/22 09:15 Wound - Leg, Right Gram Stain - Final 12/09/22 09:15 Wound - Leg, Right Wound Culture - Final Serratia marcescens 12/09/22 09:15 Wound - Leg, Right Anaerobic Culture - Final No anaerobic bacteria isolated. Debridement Note Debridement Note Wound debrided: Right alcantara trauma from falling through a bridge Type of Debridement: Excisional debridement Anesthesia Used: 5% Lidocaine Gel Depth: in the subcutaneous layer Percentage of wound debrided: 100 Instrument Used: 5mm curette Tissue Removed: Fibrin Severity: Fat Layer Exposed Amount of bleeding with debridement: Mild Bleeding Controlled with: Compression and gauze Patient tolerated procedure: Patient tolerated procedure well Post-Debridement Measurements and Additional Note: Post-Debridement Measurements/Treatment - Nurse 1 - General Ulcer Assessment Start: 11/25/22 08:47 Freq: Status: Active Protocol: MEENU Activity Type Activity Date Activity User E-sign Co-sign Detail Recorded Client Recorded Date Recorded By Document 11/25/22 08:47 RB [id number] 11/25/22 08:49 RB Document 12/02/22 08:47 DL [id number] 12/02/22 08:53 DL Document 12/09/22 08:54 BMF [id number] 12/09/22 09:05 BMF Document 12/16/22 09:30 BMF Desktop 12/16/22 09:36 BMF 11/25/22 12/02/22 12/09/22 08:47 08:47 08:54 - Today's Visit Information Type of service Follow-up Visit Follow-up Visit Follow-up Visit (Physician/ORACLE BRM DEVELOPER (Physician/ORACLE BRM DEVELOPER (Physician/ORACLE BRM DEVELOPER ) ) ) Arrival Mode Ambulatory Ambulatory Ambulatory Transfer Assistance None None None Patient Identification Verified (Name & Yes Yes Yes ) Patient Requires Transmission-Based No No No Precautions Finger Stick Blood Sugar(mg/dl) (if 121 indicated): Blood Sugar Stated by Patient Height and Weight Body Mass Index (BMI) 22.4 22.4 22.4 BMI Classification Normal Normal Normal Vital Signs Temperature (97.8 F-99.1 F) 97.5 F L 96.2 F L 97 F L Temperature Source Temporal Temporal Temporal Pulse Rate (60-100) 82 91 76 Pulse Location Monitor Monitor Monitor Respiratory Rate (12-18) 18 20 H 16 Respiratory rate source Observation Observation Observation Oxygen Delivery Method Room Air Blood Pressure (90/60-120/80) 99/76 158/64 H 131/80 H Blood Pressure Mean (mm Hg) 83 95 97 Source Monitor Monitor Monitor Position Semi-Fowlers Sitting Blood Pressure Location Left Arm Right Arm History Since Last Visit- (Skip if this is Patient's initial visit) Have you changed medications since your No No No last visit? Any new allergies or adverse reactions No No No Had a fall/change in ADL's that may No No No increase risk of falls Signs or symptoms of abuse and/or No No No neglect since last visit Have you been in the hospital since your No No No last visit? Has dressing in place as prescribed Yes Yes Yes Has compression in place as prescribed Yes Yes Yes Has offloadiing in place as prescribed No N/A N/A Experienced any changes in pain level or No No No management Left Footwear Regular Shoe Right Footwear Regular Shoe Pain Scale: 0-10 Numeric Is Patient Pain Free? Yes Yes Yes 12/16/22 09:30 WC - Today's Visit Information Type of service Follow-up Visit (Physician/ORACLE BRM DEVELOPER ) Arrival Mode Ambulatory Transfer Assistance None Patient Identification Verified (Name & Yes ) Patient Requires Transmission-Based No Precautions Finger Stick Blood Sugar(mg/dl) (if indicated): Blood Sugar Height and Weight Body Mass Index (BMI) 22.4 BMI Classification Normal Vital Signs Temperature (97.8 F-99.1 F) 96.5 F L Temperature Source Temporal Pulse Rate (60-100) 84 Pulse Location Monitor Respiratory Rate (12-18) 16 Respiratory rate source Observation Oxygen Delivery Method Room Air Blood Pressure (90/60-120/80) 152/55 H Blood Pressure Mean (mm Hg) 87 Source Monitor Position Sitting Blood Pressure Location Right Arm History Since Last Visit- (Skip if this is Patient's initial visit) Have you changed medications since your No last visit? Any new allergies or adverse reactions No Had a fall/change in ADL's that may No increase risk of falls Signs or symptoms of abuse and/or No neglect since last visit Have you been in the hospital since your No last visit? Has dressing in place as prescribed Yes Has compression in place as prescribed Yes Has offloadiing in place as prescribed N/A Experienced any changes in pain level or No management Left Footwear Regular Shoe Right Footwear Regular Shoe Pain Scale: 0-10 Numeric Is Patient Pain Free? Yes - Nurse 1 - General Ulcer Measurement Start: 11/25/22 08:47 Freq: Status: Active Protocol: Activity Type Activity Date Activity User E-sign Co-sign Detail Recorded Client Recorded Date Recorded By Document 11/25/22 08:47 RB [id number] 11/25/22 08:49 RB Document 12/02/22 08:47 DL [id number] 12/02/22 08:53 DL Document 12/09/22 08:54 BMF [id number] 12/09/22 09:05 BMF Document 12/16/22 09:30 BMF Desktop 12/16/22 09:36 BMF 11/25/22 12/02/22 12/09/22 08:47 08:47 08:54 Wound Center Nurse 1 #1 R Alcantara -Combined with other wound No No -Current Size (cm) - Length 1.8 2.1 1.8 -Current Size (cm) - Width 2 1.8 1.5 -Current Size (cm) - Depth 0.3 0.3 0.3 -Total Square Cm 3.6 3.78 2.70 -Date of Last Picture (Recall this 12/09/22 field) -Photo Taken Yes -Epithelialization Small 1-33% -Tunneling No No -Undermining/Tunneling Yes Yes -Undermining/Tunneling Starts (O'clock 3 3 1 ) -Undermining/Tunneling Ends (O'clock) 5 5 4 -Maximum Distance (cm) 0.5 0.3 0.2 -Circular Undermining No -Exudate Amt Medium Small Medium -Exudate Type Serosanguineous Serosanguineous Serosanguineous -Wound Margin Distinct, Distinct, Distinct, Outline Outline Outline Attached Attached Attached -Granulation Amt Medium (34-66%) Large (67-100%) Large (67-100%) -Granulation Quality [place] Red Red -Slough/Fibrin Yes Yes -Necrosis Amt None Present (0 None Present (0 Small (1-33%) %) %) -Necrotic Tissue Type Adherent Slough Adherent Slough -Structure Exposed N/A N/A -Texture (Zenia-wound Skin Appearance) Assessed Scarring Assessed -Moisture (Zenia-wound Skin Appearance) Assessed No Abnormality Assessed -Color (Zenia-wound Skin Appearance) Assessed No Abnormality Assessed -Temperature (Zenia-wound Skin No Abnormality No Abnormality No Abnormality Appearance) (Pt Warm) (Pt Warm) (Pt Warm) -Tenderness on Palpation (Zenia-wound No No Skin Appearance) -Ulcer Cleansing Wound Cleanser Soap and Water Rinsed/ Irrigated with Saline -Foul Odor after Cleansing No No No -Anesthetic Used 5% Lidocaine 5% Lidocaine 5% Lidocaine Gel Gel Gel Lower Limb Edema Present Yes Yes Right Calf (cm) 47 45.5 45.8 Right Ankle (cm) 25 24.5 24 12/16/22 09:30 Wound Center Nurse 1 #1 R Alcantara -Combined with other wound No -Current Size (cm) - Length 4.8 -Current Size (cm) - Width 1.5 -Current Size (cm) - Depth 0.2 -Total Square Cm 7.20 -Date of Last Picture (Recall this 12/16/22 field) -Photo Taken Yes -Epithelialization Small 1-33% -Tunneling No -Undermining/Tunneling No -Undermining/Tunneling Starts (O'clock ) -Undermining/Tunneling Ends (O'clock) -Maximum Distance (cm) -Circular Undermining No -Exudate Amt Medium -Exudate Type Serosanguineous -Wound Margin Distinct, Outline Attached -Granulation Amt Large (67-100%) -Granulation Quality Pale,Red -Slough/Fibrin Yes -Necrosis Amt Small (1-33%) -Necrotic Tissue Type Adherent Slough -Structure Exposed -Texture (Zenia-wound Skin Appearance) Assessed, Scarring -Moisture (Zenia-wound Skin Appearance) Assessed -Color (Zenia-wound Skin Appearance) Assessed, Erythema -Temperature (Zenia-wound Skin No Abnormality Appearance) (Pt Warm) -Tenderness on Palpation (Zenia-wound No Skin Appearance) -Ulcer Cleansing Soap and Water -Foul Odor after Cleansing No -Anesthetic Used 5% Lidocaine Gel Lower Limb Edema Present Yes Right Calf (cm) 48.2 Right Ankle (cm) 24.8 WC - Nurse 2 - General Ulcer CM Notes Start: 11/25/22 08:47 Freq: Status: Active Protocol: Activity Type Activity Date Activity User E-sign Co-sign Detail Recorded Client Recorded Date Recorded By Document 11/25/22 09:18 MW [id number] 11/25/22 09:19 MW Document 12/02/22 09:04 MW [id number] 12/02/22 09:08 MW Document 12/09/22 09:14 MW [id number] 12/09/22 09:24 MW Document 12/16/22 09:54 MW [id number] 12/16/22 09:59 MW 11/25/22 12/02/22 12/09/22 09:18 09:04 09:14 Wound Center Nurse 2 #1 R Alcantara -Time 09:18 09:05 09:19 -Correct Patient Yes Yes Yes -Correct Side, Site, Position Yes Yes Yes -Correct Procedure Yes Yes Yes -Procedure Performed Yes Yes Yes -Type of Procedure Debridement Debridement Debridement -Clinical Debridement Subcutaneous Subcutaneous Subcutaneous -Tissue Removed Subcutaneous Subcutaneous Subcutaneous -Post Debridement (cm) - Length 2.0 2.0 1.7 -Post Debridement (cm) - Width 1.5 1.5 1.3 -Post Debridement (cm) - Depth 0.3 0.3 0.3 -Total Square (Post) (cm) 3.00 3.00 2.21 -Area of Debridement (cm) - Length 2.0 2.0 1.7 -Area of Debridement (cm) - Width 1.5 1.5 1.3 -Total Square (Area) (cm) 3.00 3.00 2.21 -Tunneling Yes No -Tunneling Position (O'clock) 5 -Tunneling Distance (cm) 0.9 -Undermining/Tunneling Yes No Yes -Undermining/Tunneling Starts (O'clock 2 1 ) -Undermining/Tunneling Ends (O'clock) 4 5 -Maximum Distance (cm) 0.4 0.2 -Circular Undermining No No No -Wound/Ulcer Outcome Not Healed Not Healed Not Healed -Ulcer Cleansing Rinsed/ Rinsed/ Rinsed/ Irrigated with Irrigated with Irrigated with Saline Saline Saline -Foul Odor after Cleansing No No No -Bioengineered Tissue No No Yes -Type of Bioengineered Tissue Epifix 18mm Disc -Expiration Date 08/25/27 -Product Lot Number [id number] -Percent Used 100 -Lot number of Saline Used [id number] -Bleeding Controlled with Pressure Pressure Pressure -Treatment Response Procedure Procedure Procedure Tolerated Well Tolerated Well Tolerated Well -Offloading No No -Debridement - Subq, 1st 20sq cm Yes Yes No -Apply Skin Sub - 1st 25 sq cm - Legs 1 -Epifix 18mm Disc 3 Pain Scale: 0-10 Numeric Is Patient Pain Free? Yes Yes Yes 12/16/22 09:54 Wound Center Nurse 2 #1 R Alcantara -Time 09:54 -Correct Patient Yes -Correct Side, Site, Position Yes -Correct Procedure Yes -Procedure Performed Yes -Type of Procedure Debridement -Clinical Debridement Subcutaneous -Tissue Removed Subcutaneous -Post Debridement (cm) - Length 1.7 -Post Debridement (cm) - Width 1.6 -Post Debridement (cm) - Depth 0.2 -Total Square (Post) (cm) 2.72 -Area of Debridement (cm) - Length 1.7 -Area of Debridement (cm) - Width 1.6 -Total Square (Area) (cm) 2.72 -Tunneling No -Tunneling Position (O'clock) -Tunneling Distance (cm) -Undermining/Tunneling No -Undermining/Tunneling Starts (O'clock ) -Undermining/Tunneling Ends (O'clock) -Maximum Distance (cm) -Circular Undermining No -Wound/Ulcer Outcome Not Healed -Ulcer Cleansing Rinsed/ Irrigated with Saline -Foul Odor after Cleansing No -Bioengineered Tissue Yes -Type of Bioengineered Tissue Epifix 18mm Disc -Expiration Date 08/25/27 -Product Lot Number [id number] -Percent Used 100 -Lot number of Saline Used [id number] -Bleeding Controlled with Pressure -Treatment Response Procedure Tolerated Well -Offloading No -Debridement - Subq, 1st 20sq cm No -Apply Skin Sub - 1st 25 sq cm - Legs 1 -Epifix 18mm Disc 3 Pain Scale: 0-10 Numeric Is Patient Pain Free? Yes WC - Nurse 3 - General Ulcer D/C NN Start: 11/25/22 08:47 Freq: Status: Active Protocol: Activity Type Activity Date Activity User E-sign Co-sign Detail Recorded Client Recorded Date Recorded By Document 11/25/22 09:55 MW [id number] 11/25/22 09:56 MW Document 12/02/22 09:09 MW [id number] 12/02/22 09:10 MW Document 12/09/22 09:27 BMF [id number] 12/09/22 09:29 BMF Document 12/16/22 10:13 RB Desktop 12/16/22 10:15 RB 11/25/22 12/02/22 12/09/22 09:55 09:09 09:27 Wound Care Center Nurse 3 #1 R [place] -Ulcer Cleansing Rinsed/ Rinsed/ Irrigated with Irrigated with Saline Saline -Foul Odor after Cleansing No No -Negative Pressure Wound Therapy Continue N/A -Setting (mmHg) 125 -Negative Pressure is Continuous -Primary Dressing Applied Mepilex Border, Mepilex Border Promogran -Other Dressing blue foam epifix -NPWT Application Charge NPWT </= 50 sq cm (disp) ($) -Aquacel Extra -Mepilex Border 1 1 -Promogran 1 Right -Lotion applied to leg before No No compression wrap -Tubular Bandage Double Layer Double Layer -Size of Tubigrip Used Size D Size D -Size D ($) 1 2 -Other single layer tubigrip Treatment Response Procedure Procedure Procedure Tolerated Well Tolerated Well Tolerated Well Pain Scale: 0-10 Numeric Is Patient Pain Free? Yes Yes Yes Teaching: Wound Center Dressing Your Wound -Person Taught Patient Patient -Teaching Method Discussion, Discussion, Demonstration Demonstration -Response to teaching Verbalize Verbalize understanding understanding WC - Visit Discharge Discharge Condition Stable Stable Stable Ambulatory Status Ambulatory Ambulatory Ambulatory Transportation Private Auto Private Auto Private Auto Accompanied by self self Medication Reconcilliation completed & No No provided to patient/care provider Clinical Summary of Care Provided Yes Yes 12/16/22 10:13 Wound Care Center Nurse 3 #1 R Al[place]ant[place] -Ulcer Cleansing -Foul Odor after Cleansing -Negative Pressure Wound Therapy -Setting (mmHg) -Negative Pressure is -Primary Dressing Applied Aquacel Extra, Mepilex Border -Other Dressing -NPWT Application Charge -Aquacel Extra 1 -Mepilex Border 1 -Promogran Right -Lotion applied to leg before compression wrap -Tubular Bandage Double Layer -Size of Tubigrip Used Size D -Size D ($) 2 -Other Treatment Response Procedure Tolerated Well Pain Scale: 0-10 Numeric Is Patient Pain Free? Yes Teaching: Wound Center Dressing Your Wound -Person Taught -Teaching Method -Response to teaching WC - Visit Discharge Discharge Condition Stable Ambulatory Status Ambulatory Transportation Private Auto Accompanied by Medication Reconcilliation completed & No provided to patient/care provider Clinical Summary of Care Provided Yes Assessment/Plan Assessment/Plan (1) Hyperglycemia due to diabetes mellitus: CODE(S): E11.65 - Type 2 diabetes mellitus with hyperglycemia PLAN: Continue monitoring blood sugars (2) Nonhealing nonsurgical wound: CODE(S): T14.8XXA - Other injury of unspecified body region, initial encounter (3) Right leg injury: CODE(S): S89.91XA - Unspecified injury of right lower leg, initial encounter QUALIFIERS: Encounter type: subsequent encounter Qualified Code(s): S89.91XD - Unspecified injury of right lower leg, subsequent encounter PLAN: EpiFix #3 will be applied with wound veil and a Aquacel over top with a absorbent dressing Cultures obtained we will go ahead and call her when we get the results sent Do not get the dressing wet Follow-up in 1 week (4) Edema of right lower extremity: CODE(S): R60.0 - Localized edema (5) Infected wound: CODE(S): T14.8XXA - Other injury of unspecified body region, initial encounter; L08.9 - Local infection of the skin and subcutaneous tissue, unspecified PLAN: Patient taking Levaquin 500 mg daily for 14 days
[2022-12-23 09:01] VITALS: BP 155/74; PULSE 88; RESP 18; TEMP 35.9; BMI 22.4
--- NOTE | 2022-12-23 10:19 | PN.PCM_ITS ---
History of Present Illness Date of Service: 12/23/22 Chief Complaint: Follow-up on traumatic wound right lower leg History of Wound: 57-year-old white female diabetic was walking across a bridge that collapsed over Labor memorial weekend of September 20. Leg went through wood and had wood sticking out of her wound. Patient thought she got it all out but was also in a teller. but ended up going to emergency room that did nothing and then she went to her family doctor and he basically put her on water pills and got an ultrasound which showed negative for blood clot they finally decided she had cellulitis and put her on Bactrim DS after the third urgent care. Patient states there is no cultures ever taken and no x-rays of her leg ultrasound really did not look for foreign body but found that everything was compressible and there is no issues with blood clots. Progress of Wound: Patient was approved for EpiFix we will apply #3 today. Cultures were positive patient was started on Levaquin the smell is better. No anaerobes noted. The undermining is gone and healing nicely. She denies any pain or swelling no redness or pus. Measurements are smaller Subjective Subjective Patient is extremely pleased with outcomes Objective Data Objective Data We will continue using EpiFix and she should be healed in the next 2 weeks. Vital Signs: Vital Signs Temp Pulse Resp BP O2 Del Method 96.7 F L 88 18 155/74 H Room Air 12/23/22 09:01 12/23/22 09:01 12/23/22 09:01 12/23/22 09:01 12/16/22 09:30 Oxygen Delivery Method Room Air Weight: 135 lb Body Mass Index (BMI) 22.4 Lab / Micro Data Micro: Microbiology 12/09/22 09:15 Wound - Leg, Right Gram Stain - Final 12/09/22 09:15 Wound - Leg, Right Wound Culture - Final Serratia marcescens 12/09/22 09:15 Wound - Leg, Right Anaerobic Culture - Final No anaerobic bacteria isolated. Physical Exam Const oriented x3 General Appearance: cooperative Exam Limitations: no limitations HEENT normocephalic Head and Scalp: normal to inspection Face and Sinus: normal facial exam Nose: external nose normal General Ear: hearing grossly impaired External Ear: external ears normal Mouth: oral and palatal mucosa normal Eyes PERRL General Eye: normal appearance of both eyes Neck full ROM General: normal visual inspection Resp normal respiratory effort Effort and Inspection: able to speak in complete sentences Auscultation: clear to auscultation bilaterally Cardio regular rate and regular rhythm Palpation: normal PMI Rate: regular rate Rhythm: regular rhythm GI Auscultation: normoactive bowel sounds Palpation: soft and no hepatosplenomegaly external exam normal Back/Spine Cervical Spine: cervical ROM normal Thoracic Spine / Upper Back: normal to inspection Lumbar Spine / Lower Back: normal to inspection Extremity normal to inspection General Extremity: normal exam except as noted Skin no rashes or lesions noted Neuro oriented x3 Psych Appearance: grossly normal Speech: normal speech Thought Content: normal thought content Judgement: judgement good Debridement Note Debridement Note Wound debrided: Right alcantara traumatic wound Laterality: Right Type of Debridement: Excisional debridement Anesthesia Used: 5% Lidocaine Gel Depth: Down to and including healthy tissue Percentage of wound debrided: 100 Instrument Used: 3mm curette Tissue Removed: Fibrin Severity: Limited To Skin Breakdown Amount of bleeding with debridement: Mild Bleeding Controlled with: Compression and gauze Patient tolerated procedure: Patient tolerated procedure well Post-Debridement Measurements and Additional Note: Post-Debridement Measurements/Treatment - Nurse 1 - General Ulcer Assessment Start: 11/25/22 08:47 Freq: Status: Active Protocol: MEENU Activity Type Activity Date Activity User E-sign Co-sign Detail Recorded Client Recorded Date Recorded By Document 11/25/22 08:47 RB [id number] 11/25/22 08:49 RB Document 12/02/22 08:47 DL [id number] 12/02/22 08:53 DL Document 12/09/22 08:54 BMF [id number] 12/09/22 09:05 BMF Document 12/16/22 09:30 BMF Desktop 12/16/22 09:36 BMF Document 12/23/22 09:01 RB [id number] 12/23/22 09:03 RB 11/25/22 12/02/22 12/09/22 08:47 08:47 08:54 - Today's Visit Information Type of service Follow-up Visit Follow-up Visit Follow-up Visit (Physician/AUTOMOTIVE UPHOLSTERER (Physician/AUTOMOTIVE UPHOLSTERER (Physician/AUTOMOTIVE UPHOLSTERER ) ) ) Arrival Mode Ambulatory Ambulatory Ambulatory Transfer Assistance None None None Patient Identification Verified (Name & Yes Yes Yes ) Patient Requires Transmission-Based No No No Precautions Finger Stick Blood Sugar(mg/dl) (if 121 indicated): Blood Sugar Stated by Patient Height and Weight Body Mass Index (BMI) 22.4 22.4 22.4 BMI Classification Normal Normal Normal Vital Signs Temperature (97.8 F-99.1 F) 97.5 F L 96.2 F L 97 F L Temperature Source Temporal Temporal Temporal Pulse Rate (60-100) 82 91 76 Pulse Location Monitor Monitor Monitor Respiratory Rate (12-18) 18 20 H 16 Respiratory rate source Observation Observation Observation Oxygen Delivery Method Room Air Blood Pressure (90/60-120/80) 99/76 158/64 H 131/80 H Blood Pressure Mean (mm Hg) 83 95 97 Source Monitor Monitor Monitor Position Semi-Fowlers Sitting Blood Pressure Location Left Arm Right Arm History Since Last Visit- (Skip if this is Patient's initial visit) Have you changed medications since your No No No last visit? Any new allergies or adverse reactions No No No Had a fall/change in ADL's that may No No No increase risk of falls Signs or symptoms of abuse and/or No No No neglect since last visit Have you been in the hospital since your No No No last visit? Has dressing in place as prescribed Yes Yes Yes Has compression in place as prescribed Yes Yes Yes Has offloadiing in place as prescribed No N/A N/A Experienced any changes in pain level or No No No management Left Footwear Regular Shoe Right Footwear Regular Shoe Pain Scale: 0-10 Numeric Is Patient Pain Free? Yes Yes Yes 12/16/22 12/23/22 09:30 09:01 - Today's Visit Information Type of service Follow-up Visit Follow-up Visit (Physician/AUTOMOTIVE UPHOLSTERER (Physician/AUTOMOTIVE UPHOLSTERER ) ) Arrival Mode Ambulatory Ambulatory Transfer Assistance None Manual Patient Identification Verified (Name & Yes Yes ) Patient Requires Transmission-Based No No Precautions Finger Stick Blood Sugar(mg/dl) (if indicated): Blood Sugar Height and Weight Body Mass Index (BMI) 22.4 22.4 BMI Classification Normal Normal Vital Signs Temperature (97.8 F-99.1 F) 96.5 F L 96.7 F L Temperature Source Temporal Temporal Pulse Rate (60-100) 84 88 Pulse Location Monitor Monitor Respiratory Rate (12-18) 16 18 Respiratory rate source Observation Observation Oxygen Delivery Method Room Air Blood Pressure (90/60-120/80) 152/55 H 155/74 H Blood Pressure Mean (mm Hg) 87 101 Source Monitor Monitor Position Sitting Semi-Fowlers Blood Pressure Location Right Arm Left Arm History Since Last Visit- (Skip if this is Patient's initial visit) Have you changed medications since your No No last visit? Any new allergies or adverse reactions No No Had a fall/change in ADL's that may No No increase risk of falls Signs or symptoms of abuse and/or No No neglect since last visit Have you been in the hospital since your No No last visit? Has dressing in place as prescribed Yes Yes Has compression in place as prescribed Yes Yes Has offloadiing in place as prescribed N/A No Experienced any changes in pain level or No No management Left Footwear Regular Shoe Right Footwear Regular Shoe Pain Scale: 0-10 Numeric Is Patient Pain Free? Yes Yes WC - Nurse 1 - General Ulcer Measurement Start: 11/25/22 08:47 Freq: Status: Active Protocol: Activity Type Activity Date Activity User E-sign Co-sign Detail Recorded Client Recorded Date Recorded By Document 11/25/22 08:47 RB [id number] 11/25/22 08:49 RB Document 12/02/22 08:47 DL [id number] 12/02/22 08:53 DL Document 12/09/22 08:54 F [id number] 12/09/22 09:05 BMF Document 12/16/22 09:30 BMF Desktop 12/16/22 09:36 BMF Document 12/23/22 09:01 RB [id number] 12/23/22 09:03 RB 11/25/22 12/02/22 12/09/22 08:47 08:47 08:54 Wound Center Nurse 1 #1 R Alcantara -Combined with other wound No No -Current Size (cm) - Length 1.8 2.1 1.8 -Current Size (cm) - Width 2 1.8 1.5 -Current Size (cm) - Depth 0.3 0.3 0.3 -Total Square Cm 3.6 3.78 2.70 -Date of Last Picture (Recall this 12/09/22 field) -Photo Taken Yes -Epithelialization Small 1-33% -Tunneling No No -Undermining/Tunneling Yes Yes -Undermining/Tunneling Starts (O'clock 3 3 1 ) -Undermining/Tunneling Ends (O'clock) 5 5 4 -Maximum Distance (cm) 0.5 0.3 0.2 -Circular Undermining No -Exudate Amt Medium Small Medium -Exudate Type Serosanguineous Serosanguineous Serosanguineous -Wound Margin Distinct, Distinct, Distinct, Outline Outline Outline Attached Attached Attached -Granulation Amt Medium (34-66%) Large (67-100%) Large (67-100%) -Granulation Quality [place] Red Red -Slough/Fibrin Yes Yes -Necrosis Amt None Present (0 None Present (0 Small (1-33%) %) %) -Necrotic Tissue Type Adherent Slough Adherent Slough -Structure Exposed N/A N/A -Texture (Zenia-wound Skin Appearance) Assessed Scarring Assessed -Moisture (Zenia-wound Skin Appearance) Assessed No Abnormality Assessed -Color (Zenia-wound Skin Appearance) Assessed No Abnormality Assessed -Temperature (Zenia-wound Skin No Abnormality No Abnormality No Abnormality Appearance) (Pt Warm) (Pt Warm) (Pt Warm) -Tenderness on Palpation (Zenia-wound No No Skin Appearance) -Ulcer Cleansing Wound Cleanser Soap and Water Rinsed/ Irrigated with Saline -Foul Odor after Cleansing No No No -Anesthetic Used 5% Lidocaine 5% Lidocaine 5% Lidocaine Gel Gel Gel Lower Limb Edema Present Yes Yes Right Calf (cm) 47 45.5 45.8 Right Ankle (cm) 25 24.5 24 12/16/22 12/23/22 09:30 09:01 Wound Center Nurse 1 #1 R Alcantara -Combined with other wound No No -Current Size (cm) - Length 4.8 1.5 -Current Size (cm) - Width 1.5 1.5 -Current Size (cm) - Depth 0.2 0.1 -Total Square Cm 7.20 2.25 -Date of Last Picture (Recall this 12/16/22 field) -Photo Taken Yes -Epithelialization Small 1-33% -Tunneling No No -Undermining/Tunneling No No -Undermining/Tunneling Starts (O'clock ) -Undermining/Tunneling Ends (O'clock) -Maximum Distance (cm) -Circular Undermining No No -Exudate Amt Medium Medium -Exudate Type Serosanguineous Serosanguineous -Wound Margin Distinct, Distinct, Outline Outline Attached Attached -Granulation Amt Large (67-100%) Medium (34-66%) -Granulation Quality Pale,Red Lima -Slough/Fibrin Yes Yes -Necrosis Amt Small (1-33%) Medium (34-66%) -Necrotic Tissue Type Adherent Slough Adherent Slough -Structure Exposed N/A -Texture (Zenia-wound Skin Appearance) Assessed, Assessed Scarring -Moisture (Zenia-wound Skin Appearance) Assessed Assessed -Color (Zenia-wound Skin Appearance) Assessed, Erythema Erythema -Temperature (Zenia-wound Skin No Abnormality No Abnormality Appearance) (Pt Warm) (Pt Warm) -Tenderness on Palpation (Zenia-wound No No Skin Appearance) -Ulcer Cleansing Soap and Water Wound Cleanser -Foul Odor after Cleansing No No -Anesthetic Used 5% Lidocaine 5% Lidocaine Gel Gel Lower Limb Edema Present Yes Yes Right Calf (cm) 48.2 46 Right Ankle (cm) 24.8 25 WC - Nurse 2 - General Ulcer CM Notes Start: 11/25/22 08:47 Freq: Status: Active Protocol: Activity Type Activity Date Activity User E-sign Co-sign Detail Recorded Client Recorded Date Recorded By Document 11/25/22 09:18 MW [id number] 11/25/22 09:19 MW Document 12/02/22 09:04 MW [id number] 12/02/22 09:08 MW Document 12/09/22 09:14 MW [id number] 12/09/22 09:24 MW Document 12/16/22 09:54 MW [id number] 12/16/22 09:59 MW 11/25/22 12/02/22 12/09/22 09:18 09:04 09:14 Wound Center Nurse 2 #1 R Alcantara -Time 09:18 09:05 09:19 -Correct Patient Yes Yes Yes -Correct Side, Site, Position Yes Yes Yes -Correct Procedure Yes Yes Yes -Procedure Performed Yes Yes Yes -Type of Procedure Debridement Debridement Debridement -Clinical Debridement Subcutaneous Subcutaneous Subcutaneous -Tissue Removed Subcutaneous Subcutaneous Subcutaneous -Post Debridement (cm) - Length 2.0 2.0 1.7 -Post Debridement (cm) - Width 1.5 1.5 1.3 -Post Debridement (cm) - Depth 0.3 0.3 0.3 -Total Square (Post) (cm) 3.00 3.00 2.21 -Area of Debridement (cm) - Length 2.0 2.0 1.7 -Area of Debridement (cm) - Width 1.5 1.5 1.3 -Total Square (Area) (cm) 3.00 3.00 2.21 -Tunneling Yes No -Tunneling Position (O'clock) 5 -Tunneling Distance (cm) 0.9 -Undermining/Tunneling Yes No Yes -Undermining/Tunneling Starts (O'clock 2 1 ) -Undermining/Tunneling Ends (O'clock) 4 5 -Maximum Distance (cm) 0.4 0.2 -Circular Undermining No No No -Wound/Ulcer Outcome Not Healed Not Healed Not Healed -Ulcer Cleansing Rinsed/ Rinsed/ Rinsed/ Irrigated with Irrigated with Irrigated with Saline Saline Saline -Foul Odor after Cleansing No No No -Bioengineered Tissue No No Yes -Type of Bioengineered Tissue Epifix 18mm Disc -Expiration Date 08/25/27 -Product Lot Number [id number] -Percent Used 100 -Lot number of Saline Used [id number] -Bleeding Controlled with Pressure Pressure Pressure -Treatment Response Procedure Procedure Procedure Tolerated Well Tolerated Well Tolerated Well -Offloading No No -Debridement - Subq, 1st 20sq cm Yes Yes No -Apply Skin Sub - 1st 25 sq cm - Legs 1 -Epifix 18mm Disc 3 Pain Scale: 0-10 Numeric Is Patient Pain Free? Yes Yes Yes 12/16/22 09:54 Wound Center Nurse 2 #1 R Alcantara -Time 09:54 -Correct Patient Yes -Correct Side, Site, Position Yes -Correct Procedure Yes -Procedure Performed Yes -Type of Procedure Debridement -Clinical Debridement Subcutaneous -Tissue Removed Subcutaneous -Post Debridement (cm) - Length 1.7 -Post Debridement (cm) - Width 1.6 -Post Debridement (cm) - Depth 0.2 -Total Square (Post) (cm) 2.72 -Area of Debridement (cm) - Length 1.7 -Area of Debridement (cm) - Width 1.6 -Total Square (Area) (cm) 2.72 -Tunneling No -Tunneling Position (O'clock) -Tunneling Distance (cm) -Undermining/Tunneling No -Undermining/Tunneling Starts (O'clock ) -Undermining/Tunneling Ends (O'clock) -Maximum Distance (cm) -Circular Undermining No -Wound/Ulcer Outcome Not Healed -Ulcer Cleansing Rinsed/ Irrigated with Saline -Foul Odor after Cleansing No -Bioengineered Tissue Yes -Type of Bioengineered Tissue Epifix 18mm Disc -Expiration Date 08/25/27 -Product Lot Number [id number] -Percent Used 100 -Lot number of Saline Used [id number] -Bleeding Controlled with Pressure -Treatment Response Procedure Tolerated Well -Offloading No -Debridement - Subq, 1st 20sq cm No -Apply Skin Sub - 1st 25 sq cm - Legs 1 -Epifix 18mm Disc 3 Pain Scale: 0-10 Numeric Is Patient Pain Free? Yes WC - Nurse 3 - General Ulcer D/C NN Start: 11/25/22 08:47 Freq: Status: Active Protocol: Activity Type Activity Date Activity User E-sign Co-sign Detail Recorded Client Recorded Date Recorded By Document 11/25/22 09:55 MW [id number] 11/25/22 09:56 MW Document 12/02/22 09:09 MW [id number] 12/02/22 09:10 MW Document 12/09/22 09:27 BM [id number] 12/09/22 09:29 BMF Document 12/16/22 10:13 RB Desktop 12/16/22 10:15 RB 11/25/22 12/02/22 12/09/22 09:55 09:09 09:27 Wound Care Center Nurse 3 #1 R Alcantara -Ulcer Cleansing Rinsed/ Rinsed/ Irrigated with Irrigated with Saline Saline -Foul Odor after Cleansing No No -Negative Pressure Wound Therapy Continue N/A -Setting (mmHg) 125 -Negative Pressure is Continuous -Primary Dressing Applied Mepilex Border, Mepilex Border Promogran -Other Dressing blue foam epifix -NPWT Application Charge NPWT </= 50 sq cm (disp) ($) -Aquacel Extra -Mepilex Border 1 1 -Promogran 1 Right -Lotion applied to leg before No No compression wrap -Tubular Bandage Double Layer Double Layer -Size of Tubigrip Used Size D Size D -Size D ($) 1 2 -Other single layer tubigrip Treatment Response Procedure Procedure Procedure Tolerated Well Tolerated Well Tolerated Well Pain Scale: 0-10 Numeric Is Patient Pain Free? Yes Yes Yes Teaching: Wound Center Dressing Your Wound -Person Taught Patient Patient -Teaching Method Discussion, Discussion, Demonstration Demonstration -Response to teaching Verbalize Verbalize understanding understanding WC - Visit Discharge Discharge Condition Stable Stable Stable Ambulatory Status Ambulatory Ambulatory Ambulatory Transportation Private Auto Private Auto Private Auto Accompanied by self self Medication Reconcilliation completed & No No provided to patient/care provider Clinical Summary of Care Provided Yes Yes 12/16/22 10:13 Wound Care Center Nurse 3 #1 R Alcantara -Ulcer Cleansing -Foul Odor after Cleansing -Negative Pressure Wound Therapy -Setting (mmHg) -Negative Pressure is -Primary Dressing Applied Aquacel Extra, Mepilex Border -Other Dressing -NPWT Application Charge -Aquacel Extra 1 -Mepilex Border 1 -Promogran Right -Lotion applied to leg before compression wrap -Tubular Bandage Double Layer -Size of Tubigrip Used Size D -Size D ($) 2 -Other Treatment Response Procedure Tolerated Well Pain Scale: 0-10 Numeric Is Patient Pain Free? Yes Teaching: Wound Center Dressing Your Wound -Person Taught -Teaching Method -Response to teaching WC - Visit Discharge Discharge Condition Stable Ambulatory Status Ambulatory Transportation Private Auto Accompanied by Medication Reconcilliation completed & No provided to patient/care provider Clinical Summary of Care Provided Yes Assessment/Plan Assessment/Plan (1) Hyperglycemia due to diabetes mellitus: CODE(S): E11.65 - Type 2 diabetes mellitus with hyperglycemia PLAN: Continue monitoring blood sugars (2) Nonhealing nonsurgical wound: CODE(S): T14.8XXA - Other injury of unspecified body region, initial encounter (3) Right leg injury: CODE(S): S89.91XA - Unspecified injury of right lower leg, initial encounter QUALIFIERS: Encounter type: subsequent encounter Qualified Code(s): S89.91XD - Unspecified injury of right lower leg, subsequent encounter PLAN: EpiFix #3 will be applied with wound veil and a Aquacel over top with a absorbent dressing Do not get the dressing wet Follow-up in 1 week (4) Edema of right lower extremity: CODE(S): R60.0 - Localized edema (5) Infected wound: CODE(S): T14.8XXA - Other injury of unspecified body region, initial encounter; L08.9 - Local infection of the skin and subcutaneous tissue, unspecified PLAN: Patient taking Levaquin 500 mg daily for 14 days
== END 2022-12-24 23:59 | disposition home or self-care (01) ==
LOC: WC 09:15
PROVIDERS: PCP Family Medicine; Referring Provider Family Medicine; Visit Provider Nurse Practitioner
DX: S81.801A Unspecified open wound, right lower leg, initial encounter (principal); E11.65 Type 2 diabetes mellitus with hyperglycemia; L08.9 Local infection of the skin and subcutaneous tissue, unspecified; W13.1XXA Fall from, out of or through bridge, initial encounter; R60.0 Localized edema
CPT/HCPCS: 11042; 15271; 87070; 87075; 87077; 87186; 87205; 97607; Q4186

== ENCOUNTER 2023-01-20 08:45 | Outpatient (RCR) | payer BC, SELFPAY ==
[2022-12-25 00:31] VITALS: BP 155/74; PULSE 88; RESP 18; TEMP 35.9; BMI 22.4
[2022-12-30 09:23] VITALS: BP 152/66; PULSE 74; RESP 18; TEMP 36.1; BMI 22.4
--- NOTE | 2022-12-30 11:59 | PCM.WC.PN ---
History of Present Illness Date of Service: 12/30/22 Chief Complaint: Follow-up on traumatic wound right lower leg History of Wound: 57-year-old white female diabetic was walking across a bridge that collapsed over Labor memorial weekend of September 20. Leg went through wood and had wood sticking out of her wound. Patient thought she got it all out but was also in [place] but ended up going to emergency room that did nothing and then she went to her family doctor and he basically put her on water pills and got an ultrasound which showed negative for blood clot they finally decided she had cellulitis and put her on Bactrim DS after the third urgent care. Patient states there is no cultures ever taken and no x-rays of her leg ultrasound really did not look for foreign body but found that everything was compressible and there is no issues with blood clots. Progress of Wound: Progressing well with the epi fixes. Measurements are smaller and less depth no undermining. No sign of infection finished her antibiotics Subjective Subjective Patient is very pleased with outcomes Objective Data Objective Data No sign of infection doing well measures smaller filling in nicely with new skin. We will continue using EpiFix Vital Signs: Vital Signs Temp Pulse Resp BP 97 F L 74 18 152/66 H 12/30/22 09:23 12/30/22 09:23 12/30/22 09:23 12/30/22 09:23 Weight: 135 lb Body Mass Index (BMI) 22.4 Lab / Micro Data Attestation: I reviewed the patient's lab results. Physical Exam Const oriented x3 General Appearance: cooperative Exam Limitations: no limitations HEENT normocephalic Head and Scalp: normal to inspection Face and Sinus: normal facial exam Nose: external nose normal General Ear: hearing grossly impaired External Ear: external ears normal Mouth: oral and palatal mucosa normal Eyes PERRL General Eye: normal appearance of both eyes Neck full ROM General: normal visual inspection Resp normal respiratory effort Effort and Inspection: able to speak in complete sentences Auscultation: clear to auscultation bilaterally Cardio regular rate and regular rhythm Palpation: normal PMI Rate: regular rate Rhythm: regular rhythm GI Auscultation: normoactive bowel sounds Palpation: soft and no hepatosplenomegaly external exam normal Back/Spine Cervical Spine: cervical ROM normal Thoracic Spine / Upper Back: normal to inspection Lumbar Spine / Lower Back: normal to inspection Extremity normal to inspection General Extremity: normal exam except as noted Skin no rashes or lesions noted Neuro oriented x3 Psych Appearance: grossly normal Speech: normal speech Thought Content: normal thought content Judgement: judgement good Debridement Note Debridement Note Wound debrided: Right alcantara area traumatic wound Laterality: Right Type of Debridement: Excisional debridement Anesthesia Used: 5% Lidocaine Gel Depth: Down to and including healthy tissue Percentage of wound debrided: 100 Instrument Used: 5mm curette Tissue Removed: Fibrin Severity: Limited To Skin Breakdown Amount of bleeding with debridement: Mild Bleeding Controlled with: Compression and gauze Patient tolerated procedure: Patient tolerated procedure well Post-Debridement Measurements and Additional Note: Post-Debridement Measurements/Treatment - Nurse 1 - General Ulcer Assessment Start: 12/30/22 09:23 Freq: Status: Active Protocol: MEENU Activity Type Activity Date Activity User E-sign Co-sign Detail Recorded Client Recorded Date Recorded By Document 12/30/22 09:23 RAHEEM [id number] 12/30/22 09:24 RAHEEM 12/30/22 09:23 WC - Today's Visit Information Type of service Follow-up Visit (Physician/REPLACER ) Arrival Mode Ambulatory Transfer Assistance None Patient Identification Verified (Name & Yes ) Height and Weight Body Mass Index (BMI) 22.4 BMI Classification Normal Vital Signs Temperature (97.8 F-99.1 F) 97 F L Temperature Source Temporal Pulse Rate (60-100) 74 Pulse Location Monitor Respiratory Rate (12-18) 18 Respiratory rate source Observation Blood Pressure (90/60-120/80) 152/66 H Blood Pressure Mean (mm Hg) 94 Source Monitor Position Semi-Fowlers Blood Pressure Location Left Arm History Since Last Visit- (Skip if this is Patient's initial visit) Have you changed medications since your No last visit? Any new allergies or adverse reactions No Had a fall/change in ADL's that may No increase risk of falls Signs or symptoms of abuse and/or No neglect since last visit Have you been in the hospital since your No last visit? Has dressing in place as prescribed Yes Has compression in place as prescribed Yes Has offloadiing in place as prescribed No Experienced any changes in pain level or No management Pain Scale: 0-10 Numeric Is Patient Pain Free? Yes - Nurse 1 - General Ulcer Measurement Start: 12/30/22 09:23 Freq: Status: Active Protocol: Activity Type Activity Date Activity User E-sign Co-sign Detail Recorded Client Recorded Date Recorded By Document 12/30/22 09:23 RB [id number] 12/30/22 09:24 RB 12/30/22 09:23 Wound Center Nurse 1 #1 R [place] -Combined with other wound No -Current Size (cm) - Length 1.4 -Current Size (cm) - Width 1.4 -Current Size (cm) - Depth 0.1 -Total Square Cm 1.96 -Tunneling No -Undermining/Tunneling No -Circular Undermining No -Exudate Amt Large -Exudate Type Serosanguineous -Wound Margin Distinct, Outline Attached -Granulation Amt Medium (34-66%) -Granulation Quality [place] -Slough/Fibrin Yes -Necrosis Amt Medium (34-66%) -Necrotic Tissue Type Adherent Slough -Structure Exposed N/A -Texture (Zenia-wound Skin Appearance) Assessed -Moisture (Zenia-wound Skin Appearance) Assessed -Color (Zenia-wound Skin Appearance) Assessed -Temperature (Zenia-wound Skin No Abnormality Appearance) (Pt Warm) -Tenderness on Palpation (Zenia-wound No Skin Appearance) -Ulcer Cleansing Wound Cleanser -Foul Odor after Cleansing No -Anesthetic Used 5% Lidocaine Gel Lower Limb Edema Present Yes Right Calf (cm) 47.7 Right Ankle (cm) 24.2 WC - Nurse 2 - General Ulcer CM Notes Start: 12/30/22 09:23 Freq: Status: Active Protocol: Activity Type Activity Date Activity User E-sign Co-sign Detail Recorded Client Recorded Date Recorded By Document 12/30/22 09:38 MW [id number] 12/30/22 09:45 MW 12/30/22 09:38 Wound Center Nurse 2 #1 R [place] -Time 09:38 -Correct Patient Yes -Correct Side, Site, Position Yes -Correct Procedure Yes -Procedure Performed Yes -Type of Procedure Debridement -Clinical Debridement Subcutaneous -Tissue Removed Subcutaneous -Post Debridement (cm) - Length 1.8 -Post Debridement (cm) - Width 1.4 -Post Debridement (cm) - Depth 0.2 -Total Square (Post) (cm) 2.52 -Area of Debridement (cm) - Length 1.8 -Area of Debridement (cm) - Width 1.4 -Total Square (Area) (cm) 2.52 -Tunneling No -Undermining/Tunneling No -Circular Undermining No -Wound/Ulcer Outcome Not Healed -Ulcer Cleansing Rinsed/ Irrigated with Saline -Foul Odor after Cleansing No -Bioengineered Tissue Yes -Type of Bioengineered Tissue Epifix 18mm Disc -Expiration Date 08/25/27 -Product Lot Number [id number] -Percent Used 100 -Lot number of Saline Used [id number] -Bleeding Controlled with Pressure -Treatment Response Procedure Tolerated Well -Offloading No -Debridement - Subq, 1st 20sq cm No -Apply Skin Sub - 1st 25 sq cm - Legs 1 -Epifix 18mm Disc 3 Pain Scale: 0-10 Numeric Is Patient Pain Free? Yes WC - Nurse 3 - General Ulcer D/C NN Start: 12/30/22 09:23 Freq: Status: Active Protocol: Activity Type Activity Date Activity User E-sign Co-sign Detail Recorded Client Recorded Date Recorded By Document 12/30/22 10:00 RB [id number] 12/30/22 10:01 RB Edit Result 12/30/22 10:00 RB (1) [id number] 12/30/22 10:02 RB (1) Right - Tubular Bandage => Double Layer - Size of Tubigrip Used => Size D - Size D ($) => 2 12/30/22 10:00 Wound Care Center Nurse 3 #1 R [place] -Primary Dressing Applied Aquacel Extra, Mepilex Border -Aquacel Extra 1 -Mepilex Border 1 Right -Tubular Bandage Double Layer -Size of Tubigrip Used Size D -Size D ($) 2 Treatment Response Procedure Tolerated Well Pain Scale: 0-10 Numeric Is Patient Pain Free? Yes Teaching: Wound Center Dressing Your Wound -Person Taught Patient -Teaching Method Discussion, Demonstration -Response to teaching Verbalize understanding WC - Visit Discharge Discharge Condition Stable Ambulatory Status Ambulatory Transportation Private Auto Medication Reconcilliation completed & No provided to patient/care provider Clinical Summary of Care Provided Yes Assessment/Plan Assessment/Plan (1) Hyperglycemia due to diabetes mellitus: CODE(S): E11.65 - Type 2 diabetes mellitus with hyperglycemia PLAN: Continue monitoring blood sugars (2) Nonhealing nonsurgical wound: CODE(S): T14.8XXA - Other injury of unspecified body region, initial encounter (3) Right leg injury: CODE(S): S89.91XA - Unspecified injury of right lower leg, initial encounter QUALIFIERS: Encounter type: subsequent encounter Qualified Code(s): S89.91XD - Unspecified injury of right lower leg, subsequent encounter PLAN: EpiFix #4 will be applied with wound veil and a Aquacel over top with a absorbent dressing Do not get the dressing wet Follow-up in 1 week (4) Edema of right lower extremity: CODE(S): R60.0 - Localized edema (5) Infected wound: CODE(S): T14.8XXA - Other injury of unspecified body region, initial encounter; L08.9 - Local infection of the skin and subcutaneous tissue, unspecified PLAN: Patient taking Levaquin 500 mg daily for 14 days
[2023-01-06 09:05] VITALS: BP 149/70; PULSE 70; RESP 16; TEMP 36.1; BMI 22.4
--- NOTE | 2023-01-06 11:19 | PCM.WC.PN ---
History of Present Illness Date of Service: 01/06/23 Chief Complaint: Follow-up on traumatic wound right lower leg History of Wound: 57-year-old white female diabetic was walking across a bridge that collapsed over [place] memorial weekend of September 20. Leg went through wood and had wood sticking out of her wound. Patient thought she got it all out but was also in a [place]. but ended up going to emergency room that did nothing and then she went to her family doctor and he basically put her on water pills and got an ultrasound which showed negative for blood clot they finally decided she had cellulitis and put her on Bactrim DS after the third urgent care. Patient states there is no cultures ever taken and no x-rays of her leg ultrasound really did not look for foreign body but found that everything was compressible and there is no issues with blood clots. Progress of Wound: Progressing well with the epi fixes. Measurements are smaller and less depth no undermining. No sign of infection finished her antibiotics. We will continue using the EpiFix Subjective Subjective Patient happy with outcomes Objective Data Objective Data Looks good no sign of infection measuring smaller we will continue with EpiFix #5 Vital Signs: Vital Signs Temp Pulse Resp BP O2 Del Method 97 F L 70 16 149/70 H Room Air 01/06/23 09:05 01/06/23 09:05 01/06/23 09:05 01/06/23 09:05 01/06/23 09:05 Oxygen Delivery Method Room Air Weight: 135 lb Body Mass Index (BMI) 22.4 Physical Exam Const oriented x3 General Appearance: cooperative Exam Limitations: no limitations HEENT normocephalic Head and Scalp: normal to inspection Face and Sinus: normal facial exam Nose: external nose normal General Ear: hearing grossly impaired External Ear: external ears normal Mouth: oral and palatal mucosa normal Eyes PERRL General Eye: normal appearance of both eyes Neck full ROM General: normal visual inspection Resp normal respiratory effort Effort and Inspection: able to speak in complete sentences Auscultation: clear to auscultation bilaterally Cardio regular rate and regular rhythm Palpation: normal PMI Rate: regular rate Rhythm: regular rhythm GI Auscultation: normoactive bowel sounds Palpation: soft and no hepatosplenomegaly external exam normal Back/Spine Cervical Spine: cervical ROM normal Thoracic Spine / Upper Back: normal to inspection Lumbar Spine / Lower Back: normal to inspection Extremity normal to inspection General Extremity: normal exam except as noted Skin no rashes or lesions noted Neuro oriented x3 Psych Appearance: grossly normal Speech: normal speech Thought Content: normal thought content Judgement: judgement good Debridement Note Debridement Note Wound debrided: Right alcant[place] traumatic wound Type of Debridement: Excisional debridement Anesthesia Used: 5% Lidocaine Gel Depth: in the subcutaneous layer Percentage of wound debrided: 100 Instrument Used: 3mm curette Tissue Removed: Fibrin some slough Severity: Limited To Skin Breakdown Amount of bleeding with debridement: Mild Bleeding Controlled with: Compression and gauze Patient tolerated procedure: Patient tolerated procedure well Post-Debridement Measurements and Additional Note: Post-Debridement Measurements/Treatment - Nurse 1 - General Ulcer Assessment Start: 12/30/22 09:23 Freq: Status: Active Protocol: MEENU Activity Type Activity Date Activity User E-sign Co-sign Detail Recorded Client Recorded Date Recorded By Document 12/30/22 09:23 RB [id number] 12/30/22 09:24 RB Document 01/06/23 09:05 [facility] [id number] 01/06/23 09:13 [facility] 12/30/22 01/06/23 09:23 09:05 - Today's Visit Information Type of service Follow-up Visit Follow-up Visit (Physician/EDITOR CONTINUITY AND SCRIPT (Physician/EDITOR CONTINUITY AND SCRIPT ) ) Arrival Mode Ambulatory Ambulatory Transfer Assistance None None Patient Identification Verified (Name & Yes Yes ) Patient Requires Transmission-Based No Precautions Height and Weight Body Mass Index (BMI) 22.4 22.4 BMI Classification Normal Normal Vital Signs Temperature (97.8 F-99.1 F) 97 F L 97 F L Temperature Source Temporal Temporal Pulse Rate (60-100) 74 70 Pulse Location Monitor Monitor Respiratory Rate (12-18) 18 16 Respiratory rate source Observation Observation Oxygen Delivery Method Room Air Blood Pressure (90/60-120/80) 152/66 H 149/70 H Blood Pressure Mean (mm Hg) 94 96 Source Monitor Monitor Position Semi-Fowlers Sitting Blood Pressure Location Left Arm Right Forearm History Since Last Visit- (Skip if this is Patient's initial visit) Have you changed medications since your No No last visit? Any new allergies or adverse reactions No No Had a fall/change in ADL's that may No No increase risk of falls Signs or symptoms of abuse and/or No No neglect since last visit Have you been in the hospital since your No No last visit? Has dressing in place as prescribed Yes Yes Has compression in place as prescribed Yes Yes Has offloadiing in place as prescribed No N/A Experienced any changes in pain level or No No management Left Footwear Regular Shoe Right Footwear Regular Shoe Pain Scale: 0-10 Numeric Is Patient Pain Free? Yes Yes WC - Nurse 1 - General Ulcer Measurement Start: 12/30/22 09:23 Freq: Status: Active Protocol: Activity Type Activity Date Activity User E-sign Co-sign Detail Recorded Client Recorded Date Recorded By Document 12/30/22 09:23 RB [id number] 12/30/22 09:24 RB Document 01/06/23 09:05 BM [id number] 01/06/23 09:13 BMF 12/30/22 01/06/23 09:23 09:05 Wound Center Nurse 1 #1 R [place] -Combined with other wound No No -Current Size (cm) - Length 1.4 1.5 -Current Size (cm) - Width 1.4 1.3 -Current Size (cm) - Depth 0.1 0.3 -Total Square Cm 1.96 1.95 -Date of Last Picture (Recall this 01/06/23 field) -Photo Taken Yes -Epithelialization Small 1-33% -Tunneling No No -Undermining/Tunneling No No -Circular Undermining No No -Exudate Amt Large Medium -Exudate Type Serosanguineous Serosanguineous -Wound Margin Distinct, Distinct, Outline Outline Attached Attached -Granulation Amt Medium (34-66%) Medium (34-66%) -Granulation Quality [place] -Slough/Fibrin Yes Yes -Necrosis Amt Medium (34-66%) Small (1-33%) -Necrotic Tissue Type Adherent Slough Adherent Slough -Structure Exposed N/A -Texture (Zenia-wound Skin Appearance) Assessed Assessed, Scarring -Moisture (Zenia-wound Skin Appearance) Assessed Assessed -Color (Zenia-wound Skin Appearance) Assessed Assessed -Temperature (Zenia-wound Skin No Abnormality No Abnormality Appearance) (Pt Warm) (Pt Warm) -Tenderness on Palpation (Zenia-wound No No Skin Appearance) -Ulcer Cleansing Wound Cleanser Soap and Water -Foul Odor after Cleansing No No -Anesthetic Used 5% Lidocaine 5% Lidocaine Gel Gel Lower Limb Edema Present Yes Yes Right Calf (cm) 47.7 45.6 Right Ankle (cm) 24.2 25 WC - Nurse 2 - General Ulcer CM Notes Start: 12/30/22 09:23 Freq: Status: Active Protocol: Activity Type Activity Date Activity User E-sign Co-sign Detail Recorded Client Recorded Date Recorded By Document 12/30/22 09:38 MW [id number] 12/30/22 09:45 MW Document 01/06/23 09:30 MW [id number] 01/06/23 09:35 MW 12/30/22 01/06/23 09:38 09:30 Wound Center Nurse 2 #1 R [place] -Time 09:38 09:31 -Correct Patient Yes Yes -Correct Side, Site, Position Yes Yes -Correct Procedure Yes Yes -Procedure Performed Yes Yes -Type of Procedure Debridement Debridement -Clinical Debridement Subcutaneous Subcutaneous -Tissue Removed Subcutaneous Subcutaneous -Post Debridement (cm) - Length 1.8 1.4 -Post Debridement (cm) - Width 1.4 1.0 -Post Debridement (cm) - Depth 0.2 0.2 -Total Square (Post) (cm) 2.52 1.40 -Area of Debridement (cm) - Length 1.8 1.4 -Area of Debridement (cm) - Width 1.4 1.0 -Total Square (Area) (cm) 2.52 1.40 -Tunneling No No -Undermining/Tunneling No No -Circular Undermining No No -Wound/Ulcer Outcome Not Healed Not Healed -Ulcer Cleansing Rinsed/ Rinsed/ Irrigated with Irrigated with Saline Saline -Foul Odor after Cleansing No No -Bioengineered Tissue Yes Yes -Type of Bioengineered Tissue Epifix 18mm Epifix 18mm Disc Disc -Expiration Date 08/25/27 09/25/27 -Product Lot Number [id number] -Percent Used 100 100 -Lot number of Saline Used [id number] -Bleeding Controlled with Pressure Pressure -Treatment Response Procedure Procedure Tolerated Well Tolerated Well -Offloading No No -Debridement - Subq, 1st 20sq cm No No -Apply Skin Sub - 1st 25 sq cm - Legs 1 1 -Epifix 18mm Disc 3 3 Pain Scale: 0-10 Numeric Is Patient Pain Free? Yes Yes WC - Nurse 3 - General Ulcer D/C NN Start: 12/30/22 09:23 Freq: Status: Active Protocol: Activity Type Activity Date Activity User E-sign Co-sign Detail Recorded Client Recorded Date Recorded By Document 12/30/22 10:00 RB [id number] 12/30/22 10:01 RB Edit Result 12/30/22 10:00 RB (1) [id number] 12/30/22 10:02 RB Document 01/06/23 09:41 BMF [id number] 01/06/23 09:42 BMF (1) Right - Tubular Bandage => Double Layer - Size of Tubigrip Used => Size D - Size D ($) => 2 12/30/22 01/06/23 10:00 09:41 Wound Care Center Nurse 3 #1 R [place] -Primary Dressing Applied Aquacel Extra, Aquacel Extra, Mepilex Border Mepilex Border -Other Dressing epifix -Aquacel Extra 1 1 -Mepilex Border 1 1 Right -Tubular Bandage Double Layer Double Layer -Size of Tubigrip Used Size D Size D -Size D ($) 2 2 Treatment Response Procedure Procedure Tolerated Well Tolerated Well Pain Scale: 0-10 Numeric Is Patient Pain Free? Yes Yes Teaching: Wound Center Dressing Your Wound -Person Taught Patient -Teaching Method Discussion, Demonstration -Response to teaching Verbalize understanding WC - Visit Discharge Discharge Condition Stable Stable Ambulatory Status Ambulatory Ambulatory Transportation Private Auto Private Auto Medication Reconcilliation completed & No provided to patient/care provider Clinical Summary of Care Provided Yes Assessment/Plan Assessment/Plan (1) Hyperglycemia due to diabetes mellitus: CODE(S): E11.65 - Type 2 diabetes mellitus with hyperglycemia PLAN: Continue monitoring blood sugars (2) Nonhealing nonsurgical wound: CODE(S): T14.8XXA - Other injury of unspecified body region, initial encounter (3) Right leg injury: CODE(S): S89.91XA - Unspecified injury of right lower leg, initial encounter QUALIFIERS: Encounter type: subsequent encounter Qualified Code(s): S89.91XD - Unspecified injury of right lower leg, subsequent encounter PLAN: EpiFix #5 will be applied with wound veil and a Aquacel over top with a absorbent dressing Do not get the dressing wet Follow-up in 1 week (4) Edema of right lower extremity: CODE(S): R60.0 - Localized edema (5) Infected wound: CODE(S): T14.8XXA - Other injury of unspecified body region, initial encounter; L08.9 - Local infection of the skin and subcutaneous tissue, unspecified PLAN: Patient taking Levaquin 500 mg daily for 14 days
[2023-01-12 11:02] VITALS: BP 131/74; PULSE 73; RESP 18; TEMP 35.7; BMI 22.4
--- NOTE | 2023-01-12 12:27 | PN.PCM_ITS ---
History of Present Illness Date of Service: 01/12/23 Chief Complaint: Follow-up on traumatic wound right lower leg History of Wound: 57-year-old white female diabetic was walking across a bridge that collapsed over Labor memorial weekend of September 20. Leg went through wood and had wood sticking out of her wound. Patient thought she got it all out but was also in a rosebud. but ended up going to emergency room that did nothing and then she went to her family doctor and he basically put her on water pills and got an ultrasound which showed negative for blood clot they finally decided she had cellulitis and put her on Bactrim DS after the third urgent care. Patient states there is no cultures ever taken and no x-rays of her leg ultrasound really did not look for foreign body but found that everything was compressible and there is no issues with blood clots. Progress of Wound: Progressing well with the epi fixes. Measurements are smaller and less depth no undermining. No sign of infection finished her antibiotics. We will continue using the EpiFix. This could be her last EpiFix she appears to be very close to healing at this point Subjective Subjective Patient is very happy with outcomes this week it looks really good filled in nicely its very flat Objective Data Objective Data No sign of infection wound looks really good small small portion has not healed just needs skin over top This should be her last EpiFix Vital Signs: Vital Signs Temp Pulse Resp BP O2 Del Method 96.2 F L 73 18 131/74 H Room Air 01/12/23 11:02 01/12/23 11:02 01/12/23 11:02 01/12/23 11:02 01/06/23 09:05 Oxygen Delivery Method Room Air Weight: 135 lb Body Mass Index (BMI) 22.4 Lab / Micro Data Attestation: I reviewed the patient's lab results. Physical Exam Const oriented x3 General Appearance: cooperative Exam Limitations: no limitations HEENT normocephalic Head and Scalp: normal to inspection Face and Sinus: normal facial exam Nose: external nose normal General Ear: hearing grossly impaired External Ear: external ears normal Mouth: oral and palatal mucosa normal Eyes PERRL General Eye: normal appearance of both eyes Neck full ROM General: normal visual inspection Resp normal respiratory effort Effort and Inspection: able to speak in complete sentences Auscultation: clear to auscultation bilaterally Cardio regular rate and regular rhythm Palpation: normal PMI Rate: regular rate Rhythm: regular rhythm GI Auscultation: normoactive bowel sounds Palpation: soft and no hepatosplenomegaly external exam normal Back/Spine Cervical Spine: cervical ROM normal Thoracic Spine / Upper Back: normal to inspection Lumbar Spine / Lower Back: normal to inspection Extremity normal to inspection General Extremity: normal exam except as noted Skin no rashes or lesions noted Neuro oriented x3 Psych Appearance: grossly normal Speech: normal speech Thought Content: normal thought content Judgement: judgement good Debridement Note Debridement Note Wound debrided: Right alcantara traumatic wound Type of Debridement: Excisional debridement Anesthesia Used: 5% Lidocaine Gel Depth: in the subcutaneous layer Percentage of wound debrided: 100 Instrument Used: 5mm curette Tissue Removed: Fibrin Severity: Limited To Skin Breakdown Amount of bleeding with debridement: Mild Bleeding Controlled with: Compression and gauze Patient tolerated procedure: Patient tolerated procedure well Post-Debridement Measurements and Additional Note: Post-Debridement Measurements/Treatment - Nurse 1 - General Ulcer Assessment Start: 12/30/22 09:23 Freq: Status: Active Protocol: MEENU Activity Type Activity Date Activity User E-sign Co-sign Detail Recorded Client Recorded Date Recorded By Document 12/30/22 09:23 [id number] 12/30/22 09:24 Document 01/06/23 09:05 [facility] [id number] 01/06/23 09:13 [facility] Document 01/12/23 11:02 Desktop 01/12/23 11:12 12/30/22 01/06/23 01/12/23 09:23 09:05 11:02 - Today's Visit Information Type of service Follow-up Visit Follow-up Visit Follow-up Visit (Physician/[facility] [employer] (Physician/[facility] [employer] (Physician/[facility] [employer] [employer] ) ) ) Arrival Mode Ambulatory Ambulatory Ambulatory Transfer Assistance None None Patient Identification Verified (Name & Yes Yes Yes ) Patient Requires Transmission-Based No No Precautions Finger Stick Blood Sugar(mg/dl) (if 130 indicated): Blood Sugar Stated by Patient Height and Weight Body Mass Index (BMI) 22.4 22.4 22.4 BMI Classification Normal Normal Normal Vital Signs Temperature (97.8 F-99.1 F) 97 F L 97 F L 96.2 F L Temperature Source Temporal Temporal Temporal Pulse Rate (60-100) 74 70 73 Pulse Location Monitor Monitor Monitor Respiratory Rate (12-18) 18 16 18 Respiratory rate source Observation Observation Observation Oxygen Delivery Method Room Air Blood Pressure (90/60-120/80) 152/66 H 149/70 H 131/74 H Blood Pressure Mean (mm Hg) 94 96 93 Source Monitor Monitor Monitor Position Semi-Fowlers Sitting Semi-Fowlers Blood Pressure Location Left Arm Right Forearm Left Forearm History Since Last Visit- (Skip if this is Patient's initial visit) Have you changed medications since your No No No last visit? Any new allergies or adverse reactions No No No Had a fall/change in ADL's that may No No No increase risk of falls Signs or symptoms of abuse and/or No No No neglect since last visit Have you been in the hospital since your No No No last visit? Has dressing in place as prescribed Yes Yes Yes Has compression in place as prescribed Yes Yes Yes Has offloadiing in place as prescribed No N/A N/A Experienced any changes in pain level or No No No management Left Footwear Regular Shoe Regular Shoe Right Footwear Regular Shoe Regular Shoe Pain Scale: 0-10 Numeric Is Patient Pain Free? Yes Yes Yes WC - Nurse 1 - General Ulcer Measurement Start: 12/30/22 09:23 Freq: Status: Active Protocol: Activity Type Activity Date Activity User E-sign Co-sign Detail Recorded Client Recorded Date Recorded By Document 12/30/22 09:23 [id number] 12/30/22 09:24 Document 01/06/23 09:05 [facility] [id number] 01/06/23 09:13 [facility] Document 01/12/23 11:02 Desktop 01/12/23 11:12 12/30/22 01/06/23 01/12/23 09:23 09:05 11:02 Wound Center Nurse 1 #1 R Alcantara -Combined with other wound No No No -Current Size (cm) - Length 1.4 1.5 1.0 -Current Size (cm) - Width 1.4 1.3 0.7 -Current Size (cm) - Depth 0.1 0.3 0.1 -Total Square Cm 1.96 1.95 0.70 -Date of Last Picture (Recall this 01/06/23 field) -Photo Taken Yes No -Epithelialization Small 1-33% Medium 34-66% -Tunneling No No No -Undermining/Tunneling No No No -Circular Undermining No No No -Exudate Amt Large Medium Small -Exudate Type Serosanguineous Serosanguineous Serosanguineous -Wound Margin Distinct, Distinct, Flat & Intact Outline Outline Attached Attached -Granulation Amt Medium (34-66%) Medium (34-66%) Medium (34-66%) -Granulation Quality [place] Red -Slough/Fibrin Yes Yes Yes -Necrosis Amt Medium (34-66%) Small (1-33%) Small (1-33%) -Necrotic Tissue Type Adherent Slough Adherent Slough Adherent Slough -Structure Exposed N/A N/A -Texture (Zenia-wound Skin Appearance) Assessed Assessed, Assessed, Scarring Localized Edema -Moisture (Zenia-wound Skin Appearance) Assessed Assessed Assessed,Dry/ Scaly -Color (Zenia-wound Skin Appearance) Assessed Assessed Assessed -Temperature (Zenia-wound Skin No Abnormality No Abnormality No Abnormality Appearance) (Pt Warm) (Pt Warm) (Pt Warm) -Tenderness on Palpation (Zenia-wound No No No Skin Appearance) -Ulcer Cleansing Wound Cleanser Soap and Water Wound Cleanser -Foul Odor after Cleansing No No No -Anesthetic Used 5% Lidocaine 5% Lidocaine 5% Lidocaine Gel Gel Gel Lower Limb Edema Present Yes Yes Yes Right Calf (cm) 47.7 45.6 46.2 Right Ankle (cm) 24.2 25 24.3 WC - Nurse 2 - General Ulcer CM Notes Start: 12/30/22 09:23 Freq: Status: Active Protocol: Activity Type Activity Date Activity User E-sign Co-sign Detail Recorded Client Recorded Date Recorded By Document 12/30/22 09:38 MW [id number] 12/30/22 09:45 MW Document 01/06/23 09:30 MW [id number] 01/06/23 09:35 MW Document 01/12/23 11:16 MW Desktop 01/12/23 11:19 MW 12/30/22 01/06/23 01/12/23 09:38 09:30 11:16 Wound Center Nurse 2 #1 R Alcantara -Time 09:38 09:31 11:16 -Correct Patient Yes Yes Yes -Correct Side, Site, Position Yes Yes Yes -Correct Procedure Yes Yes Yes -Procedure Performed Yes Yes Yes -Type of Procedure Debridement Debridement Debridement -Clinical Debridement Subcutaneous Subcutaneous Subcutaneous -Tissue Removed Subcutaneous Subcutaneous Subcutaneous -Post Debridement (cm) - Length 1.8 1.4 1.0 -Post Debridement (cm) - Width 1.4 1.0 1.0 -Post Debridement (cm) - Depth 0.2 0.2 0.1 -Total Square (Post) (cm) 2.52 1.40 1.00 -Area of Debridement (cm) - Length 1.8 1.4 1.0 -Area of Debridement (cm) - Width 1.4 1.0 1.0 -Total Square (Area) (cm) 2.52 1.40 1.00 -Tunneling No No No -Undermining/Tunneling No No No -Circular Undermining No No No -Wound/Ulcer Outcome Not Healed Not Healed Not Healed -Ulcer Cleansing Rinsed/ Rinsed/ Rinsed/ Irrigated with Irrigated with Irrigated with Saline Saline Saline -Foul Odor after Cleansing No No No -Bioengineered Tissue Yes Yes Yes -Type of Bioengineered Tissue Epifix 18mm Epifix 18mm Epifix 18mm Disc Disc Disc -Expiration Date 08/25/27 09/25/27 09/25/27 -Product Lot Number [id number] -Percent Used 100 100 100 -Lot number of Saline Used [id number] -Bleeding Controlled with Pressure Pressure Pressure -Treatment Response Procedure Procedure Procedure Tolerated Well Tolerated Well Tolerated Well -Offloading No No No -Debridement - Subq, 1st 20sq cm No No No -Apply Skin Sub - 1st 25 sq cm - Legs 1 1 1 -Epifix 18mm Disc 3 3 3 Pain Scale: 0-10 Numeric Is Patient Pain Free? Yes Yes Yes WC - Nurse 3 - General Ulcer D/C NN Start: 12/30/22 09:23 Freq: Status: Active Protocol: Activity Type Activity Date Activity User E-sign Co-sign Detail Recorded Client Recorded Date Recorded By Document 12/30/22 10:00 RB [id number] 12/30/22 10:01 RB Edit Result 12/30/22 10:00 RB (1) [id number] 12/30/22 10:02 RB Document 01/06/23 09:41 BMF [id number] 01/06/23 09:42 BMF Document 01/12/23 11:27 BMF Desktop 01/12/23 11:28 BMF (1) Right - Tubular Bandage => Double Layer - Size of Tubigrip Used => Size D - Size D ($) => 2 12/30/22 01/06/23 01/12/23 10:00 09:41 11:27 Wound Care Center Nurse 3 #1 R Alcantara -Primary Dressing Applied Aquacel Extra, Aquacel Extra, Mepilex Border Mepilex Border Mepilex Border -Other Dressing epifix epifix -Aquacel Extra 1 1 -Mepilex Border 1 1 1 Right -Tubular Bandage Double Layer Double Layer -Size of Tubigrip Used Size D Size D -Size D ($) 2 2 -Other reapplied pts own tubi double layer Treatment Response Procedure Procedure Procedure Tolerated Well Tolerated Well Tolerated Well Pain Scale: 0-10 Numeric Is Patient Pain Free? Yes Yes Yes Teaching: Wound Center Dressing Your Wound -Person Taught Patient -Teaching Method Discussion, Demonstration -Response to teaching Verbalize understanding WC - Visit Discharge Discharge Condition Stable Stable Stable Ambulatory Status Ambulatory Ambulatory Ambulatory Transportation Private Auto Private Auto Private Auto Medication Reconcilliation completed & No provided to patient/care provider Clinical Summary of Care Provided Yes Assessment/Plan Assessment/Plan (1) Hyperglycemia due to diabetes mellitus: CODE(S): E11.65 - Type 2 diabetes mellitus with hyperglycemia PLAN: Continue monitoring blood sugars (2) Nonhealing nonsurgical wound: CODE(S): T14.8XXA - Other injury of unspecified body region, initial encounter (3) Right leg injury: CODE(S): S89.91XA - Unspecified injury of right lower leg, initial encounter QUALIFIERS: Encounter type: subsequent encounter Qualified Code(s): S89.91XD - Unspecified injury of right lower leg, subsequent encounter PLAN: EpiFix #6 will be applied with wound veil and a Aquacel over top with a absorbent dressing Do not get the dressing wet Follow-up in 1 week (4) Edema of right lower extremity: CODE(S): R60.0 - Localized edema (5) Infected wound: CODE(S): T14.8XXA - Other injury of unspecified body region, initial encounter; L08.9 - Local infection of the skin and subcutaneous tissue, unspecified PLAN: Infection resolved
[2023-01-20 09:00] VITALS: BP 140/69; PULSE 96; RESP 18; TEMP 36.1; BMI 22.4
--- NOTE | 2023-01-20 12:56 | PCM.WC.PN ---
History of Present Illness Date of Service: 01/20/23 Chief Complaint: Follow-up on traumatic wound right lower leg History of Wound: 57-year-old white female diabetic was walking across a bridge that collapsed over Labor memorial weekend of September 20. Leg went through wood and had wood sticking out of her wound. Patient thought she got it all out but was also in [place]. but ended up going to emergency room that did nothing and then she went to her family doctor and he basically put her on water pills and got an ultrasound which showed negative for blood clot they finally decided she had cellulitis and put her on Bactrim DS after the third urgent care. Patient states there is no cultures ever taken and no x-rays of her leg ultrasound really did not look for foreign body but found that everything was compressible and there is no issues with blood clots. Progress of Wound: Progressing well with the epi fixes. Measurements are smaller and less depth no undermining. No sign of infection finished her antibiotics. We will continue using the EpiFix. Subjective Subjective Very happy with outcomes much smaller in size Objective Data Objective Data Measurements are smaller no sign of infection we will continue with EpiFix #7 Vital Signs: Vital Signs Temp Pulse Resp BP O2 Del Method 97 F L 96 18 140/69 H Room Air 01/20/23 09:00 01/20/23 09:00 01/20/23 09:00 01/20/23 09:00 01/06/23 09:05 Oxygen Delivery Method Room Air Weight: 135 lb Body Mass Index (BMI) 22.4 Physical Exam Const oriented x3 General Appearance: cooperative Exam Limitations: no limitations HEENT normocephalic Head and Scalp: normal to inspection Face and Sinus: normal facial exam Nose: external nose normal General Ear: hearing grossly impaired External Ear: external ears normal Mouth: oral and palatal mucosa normal Eyes PERRL General Eye: normal appearance of both eyes Neck full ROM General: normal visual inspection Resp normal respiratory effort Effort and Inspection: able to speak in complete sentences Auscultation: clear to auscultation bilaterally Cardio regular rate and regular rhythm Palpation: normal PMI Rate: regular rate Rhythm: regular rhythm GI Auscultation: normoactive bowel sounds Palpation: soft and no hepatosplenomegaly external exam normal Back/Spine Cervical Spine: cervical ROM normal Thoracic Spine / Upper Back: normal to inspection Lumbar Spine / Lower Back: normal to inspection Extremity normal to inspection General Extremity: normal exam except as noted Skin no rashes or lesions noted Neuro oriented x3 Psych Appearance: grossly normal Speech: normal speech Thought Content: normal thought content Judgement: judgement good Debridement Note Debridement Note Wound debrided: Right alcantara traumatic wound Type of Debridement: Excisional debridement Anesthesia Used: 5% Lidocaine Gel Depth: Down to and including healthy tissue Percentage of wound debrided: 100 Instrument Used: 5mm curette Tissue Removed: Fibrin Severity: Limited To Skin Breakdown Amount of bleeding with debridement: Mild Bleeding Controlled with: Compression and gauze Patient tolerated procedure: Patient tolerated procedure well Post-Debridement Measurements and Additional Note: Post-Debridement Measurements/Treatment - Nurse 1 - General Ulcer Assessment Start: 12/30/22 09:23 Freq: Status: Active Protocol: MEENU Activity Type Activity Date Activity User E-sign Co-sign Detail Recorded Client Recorded Date Recorded By Document 12/30/22 09:23 [id number] 12/30/22 09:24 RB Document 01/06/23 09:05 [facility] [id number] 01/06/23 09:13 [facility] Document 01/12/23 11:02 Desktop 01/12/23 11:12 JF Document 01/20/23 09:00 RB Desktop 01/20/23 09:03 RB 12/30/22 01/06/23 01/12/23 09:23 09:05 11:02 - Today's Visit Information Type of service Follow-up Visit Follow-up Visit Follow-up Visit (Physician/MILITARY PROFESSIONAL (Physician/MILITARY PROFESSIONAL (Physician/MILITARY PROFESSIONAL ) ) ) Arrival Mode Ambulatory Ambulatory Ambulatory Transfer Assistance None None Patient Identification Verified (Name & Yes Yes Yes ) Patient Requires Transmission-Based No No Precautions Finger Stick Blood Sugar(mg/dl) (if 130 indicated): Blood Sugar Stated by Patient Height and Weight Body Mass Index (BMI) 22.4 22.4 22.4 BMI Classification Normal Normal Normal Vital Signs Temperature (97.8 F-99.1 F) 97 F L 97 F L 96.2 F L Temperature Source Temporal Temporal Temporal Pulse Rate (60-100) 74 70 73 Pulse Location Monitor Monitor Monitor Respiratory Rate (12-18) 18 16 18 Respiratory rate source Observation Observation Observation Oxygen Delivery Method Room Air Blood Pressure (90/60-120/80) 152/66 H 149/70 H 131/74 H Blood Pressure Mean (mm Hg) 94 96 93 Source Monitor Monitor Monitor Position Semi-Fowlers Sitting Semi-Fowlers Blood Pressure Location Left Arm Right Forearm Left Forearm History Since Last Visit- (Skip if this is Patient's initial visit) Have you changed medications since your No No No last visit? Any new allergies or adverse reactions No No No Had a fall/change in ADL's that may No No No increase risk of falls Signs or symptoms of abuse and/or No No No neglect since last visit Have you been in the hospital since your No No No last visit? Has dressing in place as prescribed Yes Yes Yes Has compression in place as prescribed Yes Yes Yes Has offloadiing in place as prescribed No N/A N/A Experienced any changes in pain level or No No No management Left Footwear Regular Shoe Regular Shoe Right Footwear Regular Shoe Regular Shoe Pain Scale: 0-10 Numeric Is Patient Pain Free? Yes Yes Yes 01/20/23 09:00 WC - Today's Visit Information Type of service Follow-up Visit (Physician/MILITARY PROFESSIONAL ) Arrival Mode Ambulatory Transfer Assistance None Patient Identification Verified (Name & Yes ) Patient Requires Transmission-Based No Precautions Finger Stick Blood Sugar(mg/dl) (if indicated): Blood Sugar Height and Weight Body Mass Index (BMI) 22.4 BMI Classification Normal Vital Signs Temperature (97.8 F-99.1 F) 97 F L Temperature Source Temporal Pulse Rate (60-100) 96 Pulse Location Monitor Respiratory Rate (12-18) 18 Respiratory rate source Observation Oxygen Delivery Method Blood Pressure (90/60-120/80) 140/69 H Blood Pressure Mean (mm Hg) 92 Source Monitor Position Semi-Fowlers Blood Pressure Location Left Arm History Since Last Visit- (Skip if this is Patient's initial visit) Have you changed medications since your No last visit? Any new allergies or adverse reactions No Had a fall/change in ADL's that may No increase risk of falls Signs or symptoms of abuse and/or No neglect since last visit Have you been in the hospital since your No last visit? Has dressing in place as prescribed Yes Has compression in place as prescribed Yes Has offloadiing in place as prescribed No Experienced any changes in pain level or No management Left Footwear Right Footwear Pain Scale: 0-10 Numeric Is Patient Pain Free? Yes WC - Nurse 1 - General Ulcer Measurement Start: 12/30/22 09:23 Freq: Status: Active Protocol: Activity Type Activity Date Activity User E-sign Co-sign Detail Recorded Client Recorded Date Recorded By Document 12/30/22 09:23 RB [id number] 12/30/22 09:24 RB Document 01/06/23 09:05 [facility] [id number] 01/06/23 09:13 BM Document 01/12/23 11:02 JF Desktop 01/12/23 11:12 JF Document 01/20/23 09:00 RB Desktop 01/20/23 09:03 RB 12/30/22 01/06/23 01/12/23 09:23 09:05 11:02 Wound Center Nurse 1 #1 R Alcantara -Combined with other wound No No No -Current Size (cm) - Length 1.4 1.5 1.0 -Current Size (cm) - Width 1.4 1.3 0.7 -Current Size (cm) - Depth 0.1 0.3 0.1 -Total Square Cm 1.96 1.95 0.70 -Date of Last Picture (Recall this 01/06/23 field) -Photo Taken Yes No -Epithelialization Small 1-33% Medium 34-66% -Tunneling No No No -Undermining/Tunneling No No No -Circular Undermining No No No -Exudate Amt Large Medium Small -Exudate Type Serosanguineous Serosanguineous Serosanguineous -Wound Margin Distinct, Distinct, Flat & Intact Outline Outline Attached Attached -Granulation Amt Medium (34-66%) Medium (34-66%) Medium (34-66%) -Granulation Quality Island Walk Island Walk Red -Slough/Fibrin Yes Yes Yes -Necrosis Amt Medium (34-66%) Small (1-33%) Small (1-33%) -Necrotic Tissue Type Adherent Slough Adherent Slough Adherent Slough -Structure Exposed N/A N/A -Texture (Zenia-wound Skin Appearance) Assessed Assessed, Assessed, Scarring Localized Edema -Moisture (Zenia-wound Skin Appearance) Assessed Assessed Assessed,Dry/ Scaly -Color (Zenia-wound Skin Appearance) Assessed Assessed Assessed -Temperature (Zenia-wound Skin No Abnormality No Abnormality No Abnormality Appearance) (Pt Warm) (Pt Warm) (Pt Warm) -Tenderness on Palpation (Zenia-wound No No No Skin Appearance) -Ulcer Cleansing Wound Cleanser Soap and Water Wound Cleanser -Foul Odor after Cleansing No No No -Anesthetic Used 5% Lidocaine 5% Lidocaine 5% Lidocaine Gel Gel Gel Lower Limb Edema Present Yes Yes Yes Right Calf (cm) 47.7 45.6 46.2 Right Ankle (cm) 24.2 25 24.3 01/20/23 09:00 Wound Center Nurse 1 #1 R Alcantara -Combined with other wound No -Current Size (cm) - Length 1.8 -Current Size (cm) - Width 1 -Current Size (cm) - Depth 0.1 -Total Square Cm 1.8 -Date of Last Picture (Recall this field) -Photo Taken Yes -Epithelialization -Tunneling No -Undermining/Tunneling No -Circular Undermining No -Exudate Amt Medium -Exudate Type Serosanguineous -Wound Margin Distinct, Outline Attached -Granulation Amt Medium (34-66%) -Granulation Quality [place] Walk -Slough/Fibrin Yes -Necrosis Amt Medium (34-66%) -Necrotic Tissue Type Adherent Slough -Structure Exposed N/A -Texture (Zenia-wound Skin Appearance) Assessed -Moisture (Zenia-wound Skin Appearance) Assessed -Color (Zenia-wound Skin Appearance) Assessed -Temperature (Zenia-wound Skin No Abnormality Appearance) (Pt Warm) -Tenderness on Palpation (Zenia-wound No Skin Appearance) -Ulcer Cleansing Wound Cleanser -Foul Odor after Cleansing No -Anesthetic Used 5% Lidocaine Gel Lower Limb Edema Present Yes Right Calf (cm) 49 Right Ankle (cm) 24.5 WC - Nurse 2 - General Ulcer CM Notes Start: 12/30/22 09:23 Freq: Status: Active Protocol: Activity Type Activity Date Activity User E-sign Co-sign Detail Recorded Client Recorded Date Recorded By Document 12/30/22 09:38 MW [id number] 12/30/22 09:45 MW Document 01/06/23 09:30 MW [id number] 01/06/23 09:35 MW Document 01/12/23 11:16 MW Desktop 01/12/23 11:19 MW Document 01/20/23 09:12 GM Desktop 01/20/23 09:16 12/30/22 01/06/23 01/12/23 09:38 09:30 11:16 Wound Center Nurse 2 #1 R Alcantara -Time 09:31 11:16 -Correct Patient Yes Yes Yes -Correct Side, Site, Position Yes Yes Yes -Correct Procedure Yes Yes Yes -Procedure Performed Yes Yes Yes -Type of Procedure Debridement Debridement Debridement -Clinical Debridement Subcutaneous Subcutaneous Subcutaneous -Tissue Removed Subcutaneous Subcutaneous Subcutaneous -Post Debridement (cm) - Length 1.8 1.4 1.0 -Post Debridement (cm) - Width 1.4 1.0 1.0 -Post Debridement (cm) - Depth 0.2 0.2 0.1 -Total Square (Post) (cm) 2.52 1.40 1.00 -Area of Debridement (cm) - Length 1.8 1.4 1.0 -Area of Debridement (cm) - Width 1.4 1.0 1.0 -Total Square (Area) (cm) 2.52 1.40 1.00 -Tunneling No No No -Undermining/Tunneling No No No -Circular Undermining No No No -Wound/Ulcer Outcome Not Healed Not Healed Not Healed -Ulcer Cleansing Rinsed/ Rinsed/ Rinsed/ Irrigated with Irrigated with Irrigated with Saline Saline Saline -Foul Odor after Cleansing No No No -Bioengineered Tissue Yes Yes Yes -Type of Bioengineered Tissue Epifix 18mm Epifix 18mm Epifix 18mm Disc Disc Disc -Expiration Date 08/25/27 09/25/27 09/25/27 -Product Lot Number [id number] -Percent Used 100 100 100 -Lot number of Saline Used [id number] -Bleeding Controlled with Pressure Pressure Pressure -Treatment Response Procedure Procedure Procedure Tolerated Well Tolerated Well Tolerated Well -Offloading No No No -Debridement - Subq, 1st 20sq cm No No No -Apply Skin Sub - 1st 25 sq cm - Legs 1 1 1 -Epifix 18mm Disc 3 3 3 Pain Scale: 0-10 Numeric Is Patient Pain Free? Yes Yes Yes 01/20/23 09:12 Wound Center Nurse 2 #1 R Alcantara -Time 09:12 -Correct Patient Yes -Correct Side, Site, Position Yes -Correct Procedure Yes -Procedure Performed Yes -Type of Procedure Debridement -Clinical Debridement Subcutaneous -Tissue Removed Subcutaneous -Post Debridement (cm) - Length 0.7 -Post Debridement (cm) - Width 0.8 -Post Debridement (cm) - Depth 0.1 -Total Square (Post) (cm) 0.56 -Area of Debridement (cm) - Length 0.7 -Area of Debridement (cm) - Width 0.8 -Total Square (Area) (cm) 0.56 -Tunneling No -Undermining/Tunneling No -Circular Undermining No -Wound/Ulcer Outcome Not Healed -Ulcer Cleansing Rinsed/ Irrigated with Saline -Foul Odor after Cleansing No -Bioengineered Tissue Yes -Type of Bioengineered Tissue Epifix 18mm Disc -Expiration Date 09/25/27 -Product Lot Number [id number] -Percent Used 100 -Lot number of Saline Used [id number] -Bleeding Controlled with Pressure -Treatment Response Procedure Tolerated Well -Offloading No -Debridement - Subq, 1st 20sq cm No -Apply Skin Sub - 1st 25 sq cm - Legs 1 -Epifix 18mm Disc 3 Pain Scale: 0-10 Numeric Is Patient Pain Free? Yes WC - Nurse 3 - General Ulcer D/C NN Start: 12/30/22 09:23 Freq: Status: Active Protocol: Activity Type Activity Date Activity User E-sign Co-sign Detail Recorded Client Recorded Date Recorded By Document 12/30/22 10:00 RB [id number] 12/30/22 10:01 RB Edit Result 12/30/22 10:00 RB (1) [id number] 12/30/22 10:02 RB Document 01/06/23 09:41 [facility] [id number] 01/06/23 09:42 BMF Document 01/12/23 11:27 BMF Desktop 01/12/23 11:28 BMF Document 01/20/23 09:28 RB Desktop 01/20/23 09:29 RB (1) Right - Tubular Bandage => Double Layer - Size of Tubigrip Used => Size D - Size D ($) => 2 12/30/22 01/06/23 01/12/23 10:00 09:41 11:27 Wound Care Center Nurse 3 #1 R Alcantara -Primary Dressing Applied Aquacel Extra, Aquacel Extra, Mepilex Border Mepilex Border Mepilex Border -Other Dressing epifix epifix -Aquacel Extra 1 1 -Mepilex Border 1 1 1 Right -Tubular Bandage Double Layer Double Layer -Size of Tubigrip Used Size D Size D -Size D ($) 2 2 -Other reapplied pts own tubi double layer Treatment Response Procedure Procedure Procedure Tolerated Well Tolerated Well Tolerated Well Pain Scale: 0-10 Numeric Is Patient Pain Free? Yes Yes Yes Teaching: Wound Center Dressing Your Wound -Person Taught Patient -Teaching Method Discussion, Demonstration -Response to teaching Verbalize understanding Compression Wraps & Stockings -Person Taught -Teaching Method -Response to teaching WC - Visit Discharge Discharge Condition Stable Stable Stable Ambulatory Status Ambulatory Ambulatory Ambulatory Transportation Private Auto Private Auto Private Auto Medication Reconcilliation completed & No provided to patient/care provider Clinical Summary of Care Provided Yes 01/20/23 09:28 Wound Care Center Nurse 3 #1 R Alcantara -Primary Dressing Applied Aquacel Extra, Mepilex Border -Other Dressing -Aquacel Extra 1 -Mepilex Border 1 Right -Tubular Bandage Double Layer -Size of Tubigrip Used Size D -Size D ($) 2 -Other Treatment Response Procedure Tolerated Well Pain Scale: 0-10 Numeric Is Patient Pain Free? Yes Teaching: Wound Center Dressing Your Wound -Person Taught -Teaching Method -Response to teaching Compression Wraps & Stockings -Person Taught Patient -Teaching Method Discussion, Demonstration -Response to teaching Verbalize understanding WC - Visit Discharge Discharge Condition Stable Ambulatory Status Ambulatory Transportation Private Auto Medication Reconcilliation completed & No provided to patient/care provider Clinical Summary of Care Provided Yes Assessment/Plan Assessment/Plan (1) Hyperglycemia due to diabetes mellitus: CODE(S): E11.65 - Type 2 diabetes mellitus with hyperglycemia PLAN: Continue monitoring blood sugars (2) Nonhealing nonsurgical wound: CODE(S): T14.8XXA - Other injury of unspecified body region, initial encounter (3) Right leg injury: CODE(S): S89.91XA - Unspecified injury of right lower leg, initial encounter QUALIFIERS: Encounter type: subsequent encounter Qualified Code(s): S89.91XD - Unspecified injury of right lower leg, subsequent encounter PLAN: EpiFix #7 will be applied with wound veil and a Aquacel over top with a absorbent dressing Do not get the dressing wet Follow-up in 1 week (4) Edema of right lower extremity: CODE(S): R60.0 - Localized edema (5) Infected wound: CODE(S): T14.8XXA - Other injury of unspecified body region, initial encounter; L08.9 - Local infection of the skin and subcutaneous tissue, unspecified PLAN: Infection resolved
== END 2023-01-23 23:59 | disposition home or self-care (01) ==
LOC: WC 08:45
PROVIDERS: PCP Family Medicine; Referring Provider Family Medicine; Visit Provider Nurse Practitioner
DX: S81.801A Unspecified open wound, right lower leg, initial encounter (principal); E11.65 Type 2 diabetes mellitus with hyperglycemia; L08.9 Local infection of the skin and subcutaneous tissue, unspecified; W13.1XXA Fall from, out of or through bridge, initial encounter; R60.0 Localized edema
CPT/HCPCS: 15271; Q4186

== ENCOUNTER 2023-02-16 09:00 | Outpatient (RCR) | payer BC, SELFPAY ==
[2023-01-24 00:41] VITALS: BP 140/69; PULSE 96; RESP 18; TEMP 36.1; BMI 22.4
[2023-01-27 09:01] VITALS: BP 175/71; PULSE 75; TEMP 35.4; BMI 22.4
--- NOTE | 2023-01-27 10:14 | PN.PCM_ITS ---
History of Present Illness Date of Service: 01/27/23 Chief Complaint: Follow-up on traumatic wound right lower leg History of Wound: 57-year-old white female diabetic was walking across a bridge that collapsed over Labor memorial weekend of September 20. Leg went through wood and had wood sticking out of her wound. Patient thought she got it all out but was also [place]. but ended up going to emergency room that did nothing and then she went to her family doctor and he basically put her on water pills and got an ultrasound which showed negative for blood clot they finally decided she had cellulitis and put her on Bactrim DS after the third urgent care. Patient states there is no cultures ever taken and no x-rays of her leg ultrasound really did not look for foreign body but found that everything was compressible and there is no issues with blood clots. Progress of Wound: Still top layer skin is not over the top yet we will continue with EpiFix. Tolerating well skin continues to look good Subjective Subjective Very happy with outcomes Objective Data Objective Data Again needs a top layer of skin not there we will continue using the EpiFix #8 follow-up 1 week Vital Signs: Vital Signs Temp Pulse Resp BP O2 Del Method 95.8 F L 75 18 175/71 H Room Air 01/27/23 09:01 01/27/23 09:01 01/24/23 00:41 01/27/23 09:01 01/27/23 09:01 Oxygen Delivery Method Room Air Weight: 135 lb Body Mass Index (BMI) 22.4 Lab / Micro Data Attestation: I reviewed the patient's lab results. Physical Exam Const oriented x3 General Appearance: cooperative Exam Limitations: no limitations HEENT normocephalic Head and Scalp: normal to inspection Face and Sinus: normal facial exam Nose: external nose normal General Ear: hearing grossly impaired External Ear: external ears normal Mouth: oral and palatal mucosa normal Eyes PERRL General Eye: normal appearance of both eyes Neck full ROM General: normal visual inspection Resp normal respiratory effort Effort and Inspection: able to speak in complete sentences Auscultation: clear to auscultation bilaterally Cardio regular rate and regular rhythm Palpation: normal PMI Rate: regular rate Rhythm: regular rhythm GI Auscultation: normoactive bowel sounds Palpation: soft and no hepatosplenomegaly external exam normal Back/Spine Cervical Spine: cervical ROM normal Thoracic Spine / Upper Back: normal to inspection Lumbar Spine / Lower Back: normal to inspection Extremity normal to inspection General Extremity: normal exam except as noted Skin no rashes or lesions noted Neuro oriented x3 Psych Appearance: grossly normal Speech: normal speech Thought Content: normal thought content Judgement: judgement good Debridement Note Debridement Note Wound debrided: Right alcantara traumatic wound Laterality: Right Type of Debridement: Excisional debridement Anesthesia Used: 5% Lidocaine Gel Depth: in the subcutaneous layer Percentage of wound debrided: 100 Instrument Used: 3mm curette Tissue Removed: Fibrin Severity: Limited To Skin Breakdown Amount of bleeding with debridement: None Bleeding Controlled with: Pressure Patient tolerated procedure: Patient tolerated procedure well Post-Debridement Measurements and Additional Note: Post-Debridement Measurements/Treatment LAURENCE - Nurse 1 - General Ulcer Assessment Start: 01/27/23 09:01 Freq: Status: Active Protocol: MEENU Activity Type Activity Date Activity User E-sign Co-sign Detail Recorded Client Recorded Date Recorded By Document 01/27/23 09:01 Desktop 01/27/23 09:07 01/27/23 09:01 LAURENCE - Today's Visit Information Type of service Follow-up Visit (Physician/PLATFORM ENGINEER ) Arrival Mode Ambulatory Patient Identification Verified (Name & Yes ) Height and Weight Body Mass Index (BMI) 22.4 BMI Classification Normal Vital Signs Temperature (97.8 F-99.1 F) 95.8 F L Temperature Source Temporal Pulse Rate (60-100) 75 Pulse Location Monitor Oxygen Delivery Method Room Air Blood Pressure (90/60-120/80) 175/71 H Blood Pressure Mean (mm Hg) 105 Source Monitor Position Sitting Blood Pressure Location Left Arm History Since Last Visit- (Skip if this is Patient's initial visit) Have you changed medications since your No last visit? Any new allergies or adverse reactions No Had a fall/change in ADL's that may No increase risk of falls Signs or symptoms of abuse and/or No neglect since last visit Have you been in the hospital since your No last visit? Has dressing in place as prescribed Yes Has compression in place as prescribed Yes Has offloadiing in place as prescribed N/A Experienced any changes in pain level or No management Left Footwear Regular Shoe Pain Scale: 0-10 Numeric Is Patient Pain Free? Yes LAURENCE - Nurse 1 - General Ulcer Measurement Start: 01/27/23 09:01 Freq: Status: Active Protocol: Activity Type Activity Date Activity User E-sign Co-sign Detail Recorded Client Recorded Date Recorded By Document 01/27/23 09:01 GM Desktop 01/27/23 09:07 01/27/23 09:01 Wound Center Nurse 1 #1 R Alcantara -Combined with other wound No -Current Size (cm) - Length 1.4 -Current Size (cm) - Width 1.0 -Current Size (cm) - Depth 0.5 -Total Square Cm 1.40 -Date of Last Picture (Recall this 01/27/23 field) -Photo Taken Yes -Tunneling No -Undermining/Tunneling No -Circular Undermining No -Exudate Amt Small -Exudate Type Serosanguineous -Wound Margin Distinct, Outline Attached -Granulation Quality Hyper- granulation -Slough/Fibrin Yes -Structure Exposed N/A -Texture (Zenia-wound Skin Appearance) Assessed -Moisture (Zenia-wound Skin Appearance) Assessed -Color (Zenia-wound Skin Appearance) Assessed -Temperature (Zenia-wound Skin No Abnormality Appearance) (Pt Warm) -Tenderness on Palpation (Zenia-wound No Skin Appearance) -Ulcer Cleansing Soap and Water -Foul Odor after Cleansing No -Anesthetic Used 5% Lidocaine Gel Lower Limb Edema Present Yes Point of measurement (cm from the medial 46.5 instep) Point of Measurement (cm from the medial 23.7 instep) WC - Nurse 2 - General Ulcer CM Notes Start: 01/27/23 09:01 Freq: Status: Active Protocol: Activity Type Activity Date Activity User E-sign Co-sign Detail Recorded Client Recorded Date Recorded By Document 01/27/23 09:24 MW Desktop 01/27/23 09:29 MW 01/27/23 09:24 Wound Center Nurse 2 #1 R Alcantara -Time 09:24 -Correct Patient Yes -Correct Side, Site, Position Yes -Correct Procedure Yes -Procedure Performed Yes -Type of Procedure Debridement -Clinical Debridement Subcutaneous -Tissue Removed Subcutaneous -Post Debridement (cm) - Length 1.2 -Post Debridement (cm) - Width 1.0 -Post Debridement (cm) - Depth 0.1 -Total Square (Post) (cm) 1.20 -Area of Debridement (cm) - Length 1.2 -Area of Debridement (cm) - Width 1.0 -Total Square (Area) (cm) 1.20 -Tunneling No -Undermining/Tunneling No -Circular Undermining No -Wound/Ulcer Outcome Not Healed -Ulcer Cleansing Rinsed/ Irrigated with Saline -Foul Odor after Cleansing No -Bioengineered Tissue Yes -Type of Bioengineered Tissue Epifix 18mm Disc -Expiration Date 10/25/27 -Product Lot Number [id number] -Percent Used 100 -Lot number of Saline Used [id number] -Bleeding Controlled with Pressure -Treatment Response Procedure Tolerated Well -Offloading No -Debridement - Subq, 1st 20sq cm No -Apply Skin Sub - 1st 25 sq cm - Legs 1 -Epifix 18mm Disc 3 Pain Scale: 0-10 Numeric Is Patient Pain Free? Yes - Nurse 3 - General Ulcer D/C NN Start: 01/27/23 09:01 Freq: Status: Active Protocol: Activity Type Activity Date Activity User E-sign Co-sign Detail Recorded Client Recorded Date Recorded By Document 01/27/23 09:35 RB Desktop 01/27/23 09:37 01/27/23 09:35 Wound Care Center Nurse 3 #1 R Alcantara -Primary Dressing Applied Aquacel Extra, Mepilex Border -Aquacel Extra 1 -Mepilex Border 1 Treatment Response Procedure Tolerated Well Pain Scale: 0-10 Numeric Is Patient Pain Free? Yes Teaching: Wound Center Dressing Your Wound -Person Taught Patient -Teaching Method Discussion, Demonstration -Response to teaching Verbalize understanding WC - Visit Discharge Discharge Condition Stable Ambulatory Status Ambulatory Transportation Private Auto Medication Reconcilliation completed & No provided to patient/care provider Clinical Summary of Care Provided Yes Assessment/Plan Assessment/Plan (1) Hyperglycemia due to diabetes mellitus: CODE(S): E11.65 - Type 2 diabetes mellitus with hyperglycemia PLAN: Continue monitoring blood sugars (2) Nonhealing nonsurgical wound: CODE(S): T14.8XXA - Other injury of unspecified body region, initial encounter (3) Right leg injury: CODE(S): S89.91XA - Unspecified injury of right lower leg, initial encounter QUALIFIERS: Encounter type: subsequent encounter Qualified Code(s): S89.91XD - Unspecified injury of right lower leg, subsequent encounter PLAN: EpiFix #8 will be applied with wound veil and a Aquacel over top with a absorbent dressing Do not get the dressing wet Follow-up in 1 week (4) Edema of right lower extremity: CODE(S): R60.0 - Localized edema (5) Infected wound: CODE(S): T14.8XXA - Other injury of unspecified body region, initial encounter; L08.9 - Local infection of the skin and subcutaneous tissue, unspecified PLAN: Infection resolved
[2023-02-03 10:41] VITALS: BP 152/70; PULSE 82; RESP 16; TEMP 36.2; BMI 22.4
--- NOTE | 2023-02-03 11:49 | PCM.WC.PN ---
History of Present Illness Date of Service: 02/03/23 Chief Complaint: Follow-up on traumatic wound right lower leg History of Wound: 57-year-old white female diabetic was walking across a bridge that collapsed over Labor memorial weekend of September 20. Leg went through wood and had wood sticking out of her wound. Patient thought she got it all out but was also in a [place] but ended up going to emergency room that did nothing and then she went to her family doctor and he basically put her on water pills and got an ultrasound which showed negative for blood clot they finally decided she had cellulitis and put her on Bactrim DS after the third urgent care. Patient states there is no cultures ever taken and no x-rays of her leg ultrasound really did not look for foreign body but found that everything was compressible and there is no issues with blood clots. Progress of Wound: Still top layer skin is not over the top yet we will continue with EpiFix. Tolerating well skin continues to look good Measuring slightly smaller just cannot get that top layer to take. Subjective Subjective Patient is very pleased with outcomes Objective Data Objective Data Getting a little hypergranulation but still has new tissue developing. We will continue with EpiFix Vital Signs: Vital Signs Temp Pulse Resp BP O2 Del Method 97.1 F L 82 16 152/70 H Room Air 02/03/23 10:41 02/03/23 10:41 02/03/23 10:41 02/03/23 10:41 02/03/23 10:41 Oxygen Delivery Method Room Air Weight: 135 lb Body Mass Index (BMI) 22.4 Lab / Micro Data Attestation: I reviewed the patient's lab results. Physical Exam Const oriented x3 General Appearance: cooperative Exam Limitations: no limitations HEENT normocephalic Head and Scalp: normal to inspection Face and Sinus: normal facial exam Nose: external nose normal General Ear: hearing grossly impaired External Ear: external ears normal Mouth: oral and palatal mucosa normal Eyes PERRL General Eye: normal appearance of both eyes Neck full ROM General: normal visual inspection Resp normal respiratory effort Effort and Inspection: able to speak in complete sentences Auscultation: clear to auscultation bilaterally Cardio regular rate and regular rhythm Palpation: normal PMI Rate: regular rate Rhythm: regular rhythm GI Auscultation: normoactive bowel sounds Palpation: soft and no hepatosplenomegaly external exam normal Back/Spine Cervical Spine: cervical ROM normal Thoracic Spine / Upper Back: normal to inspection Lumbar Spine / Lower Back: normal to inspection Extremity normal to inspection General Extremity: normal exam except as noted Skin no rashes or lesions noted Neuro oriented x3 Psych Appearance: grossly normal Speech: normal speech Thought Content: normal thought content Judgement: judgement good Debridement Note Debridement Note Wound debrided: Right lower leg traumatic opening Type of Debridement: Excisional debridement Anesthesia Used: 5% Lidocaine Gel Depth: Down to and including healthy tissue Percentage of wound debrided: 100 Instrument Used: 5mm curette Tissue Removed: Fibrin Severity: Limited To Skin Breakdown Amount of bleeding with debridement: None Bleeding Controlled with: Pressure Patient tolerated procedure: Patient tolerated procedure well Post-Debridement Measurements and Additional Note: Post-Debridement Measurements/Treatment - Nurse 1 - General Ulcer Assessment Start: 01/27/23 09:01 Freq: Status: Active Protocol: .JOSÉ Activity Type Activity Date Activity User E-sign Co-sign Detail Recorded Client Recorded Date Recorded By Document 01/27/23 09:01 [facility] 01/27/23 09:07 Document 02/03/23 10:41 [facility] Desktop 02/03/23 10:46 [facility] 01/27/23 02/03/23 09:01 10:41 - Today's Visit Information Type of service Follow-up Visit Follow-up Visit (Physician/LEAN SIX SIGMA BLACK BELT (Physician/LEAN SIX [employer]MA BLACK BELT ) ) Arrival Mode Ambulatory Ambulatory Transfer Assistance None Patient Identification Verified (Name & Yes Yes ) Patient Requires Transmission-Based No Precautions Height and Weight Body Mass Index (BMI) 22.4 22.4 BMI Classification Normal Normal Vital Signs Temperature (97.8 F-99.1 F) 95.8 F L 97.1 F L Temperature Source Temporal Temporal Pulse Rate (60-100) 75 82 Pulse Location Monitor Monitor Respiratory Rate (12-18) 16 Respiratory rate source Observation Oxygen Delivery Method Room Air Room Air Blood Pressure (90/60-120/80) 175/71 H 152/70 H Blood Pressure Mean (mm Hg) 105 97 Source Monitor Monitor Position Sitting Sitting Blood Pressure Location Left Arm Left Arm History Since Last Visit- (Skip if this is Patient's initial visit) Have you changed medications since your No No last visit? Any new allergies or adverse reactions No No Had a fall/change in ADL's that may No No increase risk of falls Signs or symptoms of abuse and/or No No neglect since last visit Have you been in the hospital since your No No last visit? Has dressing in place as prescribed Yes Yes Has compression in place as prescribed Yes Yes Has offloadiing in place as prescribed N/A N/A Experienced any changes in pain level or No No management Left Footwear Regular Shoe Regular Shoe Right Footwear Regular Shoe Pain Scale: 0-10 Numeric Is Patient Pain Free? Yes Yes WC - Nurse 1 - General Ulcer Measurement Start: 01/27/23 09:01 Freq: Status: Active Protocol: Activity Type Activity Date Activity User E-sign Co-sign Detail Recorded Client Recorded Date Recorded By Document 01/27/23 09:01 Desktop 01/27/23 09:07 Document 02/03/23 10:41 [facility] Desktop 02/03/23 10:46 BM 01/27/23 02/03/23 09:01 10:41 Wound Center Nurse 1 #1 R Vivas -Combined with other wound No No -Current Size (cm) - Length 1.4 0.9 -Current Size (cm) - Width 1.0 0.7 -Current Size (cm) - Depth 0.5 0.1 -Total Square Cm 1.40 0.63 -Date of Last Picture (Recall this 01/27/23 field) -Photo Taken Yes No -Epithelialization Medium 34-66% -Tunneling No No -Undermining/Tunneling No No -Circular Undermining No No -Exudate Amt Small Medium -Exudate Type Serosanguineous Serosanguineous -Wound Margin Distinct, Distinct, Outline Outline Attached Attached -Granulation Amt Medium (34-66%) -Granulation Quality Hyper- Hyper- granulation granulation, [place] -Slough/Fibrin Yes Yes -Necrosis Amt Small (1-33%) -Necrotic Tissue Type Adherent Slough -Structure Exposed N/A -Texture (Zenia-wound Skin Appearance) Assessed Assessed, Scarring -Moisture (Zenia-wound Skin Appearance) Assessed Assessed -Color (Zenia-wound Skin Appearance) Assessed Assessed -Temperature (Zenia-wound Skin No Abnormality No Abnormality Appearance) (Pt Warm) (Pt Warm) -Tenderness on Palpation (Zenia-wound No No Skin Appearance) -Ulcer Cleansing Soap and Water Soap and Water -Foul Odor after Cleansing No No -Anesthetic Used 5% Lidocaine 5% Lidocaine Gel Gel Lower Limb Edema Present Yes Point of measurement (cm from the medial 46.5 instep) Point of Measurement (cm from the medial 23.7 instep) WC - Nurse 2 - General Ulcer CM Notes Start: 01/27/23 09:01 Freq: Status: Active Protocol: Activity Type Activity Date Activity User E-sign Co-sign Detail Recorded Client Recorded Date Recorded By Document 01/27/23 09:24 MW Desktop 01/27/23 09:29 MW Document 02/03/23 10:57 MW Desktop 02/03/23 11:02 MW 01/27/23 02/03/23 09:24 10:57 Wound Center Nurse 2 #1 R Vivas -Time 09:24 10:57 -Correct Patient Yes Yes -Correct Side, Site, Position Yes Yes -Correct Procedure Yes Yes -Procedure Performed Yes Yes -Type of Procedure Debridement Debridement -Clinical Debridement Subcutaneous Subcutaneous -Tissue Removed Subcutaneous Epidermis, Subcutaneous -Post Debridement (cm) - Length 1.2 0.9 -Post Debridement (cm) - Width 1.0 0.8 -Post Debridement (cm) - Depth 0.1 0.1 -Total Square (Post) (cm) 1.20 0.72 -Area of Debridement (cm) - Length 1.2 0.9 -Area of Debridement (cm) - Width 1.0 0.8 -Total Square (Area) (cm) 1.20 0.72 -Tunneling No No -Undermining/Tunneling No No -Circular Undermining No No -Wound/Ulcer Outcome Not Healed Not Healed -Ulcer Cleansing Rinsed/ Rinsed/ Irrigated with Irrigated with Saline Saline -Foul Odor after Cleansing No No -Bioengineered Tissue Yes Yes -Type of Bioengineered Tissue Epifix 18mm Epifix 18mm Disc Disc -Expiration Date 10/25/27 10/25/27 -Product Lot Number [id number] -Percent Used 100 100 -Lot number of Saline Used [id number] -Bleeding Controlled with Pressure Silver Nitrate -Treatment Response Procedure Procedure Tolerated Well Tolerated Well -Offloading No No -Debridement - Subq, 1st 20sq cm No No -Apply Skin Sub - 1st 25 sq cm - Legs 1 1 -Epifix 18mm Disc 3 3 Pain Scale: 0-10 Numeric Is Patient Pain Free? Yes Yes WC - Nurse 3 - General Ulcer D/C NN Start: 01/27/23 09:01 Freq: Status: Active Protocol: Activity Type Activity Date Activity User E-sign Co-sign Detail Recorded Client Recorded Date Recorded By Document 01/27/23 09:35 RB Desktop 01/27/23 09:37 RB 01/27/23 09:35 Wound Care Center Nurse 3 #1 R Vivas -Primary Dressing Applied Aquacel Extra, Mepilex Border -Aquacel Extra 1 -Mepilex Border 1 Treatment Response Procedure Tolerated Well Pain Scale: 0-10 Numeric Is Patient Pain Free? Yes Teaching: Wound Center Dressing Your Wound -Person Taught Patient -Teaching Method Discussion, Demonstration -Response to teaching Verbalize understanding WC - Visit Discharge Discharge Condition Stable Ambulatory Status Ambulatory Transportation Private Auto Medication Reconcilliation completed & No provided to patient/care provider Clinical Summary of Care Provided Yes Assessment/Plan Assessment/Plan (1) Hyperglycemia due to diabetes mellitus: CODE(S): E11.65 - Type 2 diabetes mellitus with hyperglycemia PLAN: Continue monitoring blood sugars (2) Nonhealing nonsurgical wound: CODE(S): T14.8XXA - Other injury of unspecified body region, initial encounter (3) Right leg injury: CODE(S): S89.91XA - Unspecified injury of right lower leg, initial encounter QUALIFIERS: Encounter type: subsequent encounter Qualified Code(s): S89.91XD - Unspecified injury of right lower leg, subsequent encounter PLAN: EpiFix #9 will be applied with wound veil and a Aquacel over top with a absorbent dressing Do not get the dressing wet Follow-up in 1 week (4) Edema of right lower extremity: CODE(S): R60.0 - Localized edema (5) Infected wound: CODE(S): T14.8XXA - Other injury of unspecified body region, initial encounter; L08.9 - Local infection of the skin and subcutaneous tissue, unspecified PLAN: Infection resolved
[2023-02-10 08:54] VITALS: BP 149/72; PULSE 90; RESP 16; TEMP 36.1; BMI 22.4
--- NOTE | 2023-02-10 10:13 | PCM.WC.PN ---
History of Present Illness Date of Service: 02/10/23 Chief Complaint: Follow-up on traumatic wound right lower leg History of Wound: 57-year-old white female diabetic was walking across a bridge that collapsed over Labor memorial weekend of September 20. Leg went through wood and had wood sticking out of her wound. Patient thought she got it all out but was also in a [place]. but ended up going to emergency room that did nothing and then she went to her family doctor and he basically put her on water pills and got an ultrasound which showed negative for blood clot they finally decided she had cellulitis and put her on Bactrim DS after the third urgent care. Patient states there is no cultures ever taken and no x-rays of her leg ultrasound really did not look for foreign body but found that everything was compressible and there is no issues with blood clots. Progress of Wound: Still top layer skin is not over the top yet we will continue with EpiFix. Tolerating well skin continues to look good Measuring slightly smaller just cannot get that top layer to take. Subjective Subjective Patient is pleased with outcomes Objective Data Objective Data Again still needs had top layer . We will continue the last EpiFix #10 Vital Signs: Vital Signs Temp Pulse Resp BP O2 Del Method 97 F L 90 16 149/72 H Room Air 02/10/23 08:54 02/10/23 08:54 02/10/23 08:54 02/10/23 08:54 02/10/23 08:54 Oxygen Delivery Method Room Air Weight: 135 lb Body Mass Index (BMI) 22.4 Lab / Micro Data Attestation: I reviewed the patient's lab results. Debridement Note Debridement Note Wound debrided: Right alcantara traumatic opening Type of Debridement: Excisional debridement Anesthesia Used: 5% Lidocaine Gel Depth: in the subcutaneous layer Percentage of wound debrided: 100 Instrument Used: 3mm curette Tissue Removed: Fibrin Severity: Limited To Skin Breakdown Bleeding Controlled with: Pressure Patient tolerated procedure: Patient tolerated procedure well Post-Debridement Measurements and Additional Note: Post-Debridement Measurements/Treatment - Nurse 1 - General Ulcer Assessment Start: 01/27/23 09:01 Freq: Status: Active Protocol: MEENU Activity Type Activity Date Activity User E-sign Co-sign Detail Recorded Client Recorded Date Recorded By Document 01/27/23 09:01 Desktop 01/27/23 09:07 Document 02/03/23 10:41 [facility] Desktop 02/03/23 10:46 [facility] Document 02/10/23 08:54 [facility] Desktop 02/10/23 08:58 [facility] 01/27/23 02/03/23 02/10/23 09:01 10:41 08:54 - Today's Visit Information Type of service Follow-up Visit Follow-up Visit Follow-up Visit (Physician/MANAGING PRINCIPAL (Physician/MANAGING PRINCIPAL (Physician/MANAGING PRINCIPAL ) ) ) Arrival Mode Ambulatory Ambulatory Ambulatory Transfer Assistance None None Patient Identification Verified (Name & Yes Yes Yes ) Patient Requires Transmission-Based No No Precautions Height and Weight Body Mass Index (BMI) 22.4 22.4 22.4 BMI Classification Normal Normal Normal Vital Signs Temperature (97.8 F-99.1 F) 95.8 F L 97.1 F L 97 F L Temperature Source Temporal Temporal Temporal Pulse Rate (60-100) 75 82 90 Pulse Location Monitor Monitor Monitor Respiratory Rate (12-18) 16 16 Respiratory rate source Observation Observation Oxygen Delivery Method Room Air Room Air Room Air Blood Pressure (90/60-120/80) 175/71 H 152/70 H 149/72 H Blood Pressure Mean (mm Hg) 105 97 97 Source Monitor Monitor Monitor Position Sitting Sitting Sitting Blood Pressure Location Left Arm Left Arm Right Forearm History Since Last Visit- (Skip if this is Patient's initial visit) Have you changed medications since your No No No last visit? Any new allergies or adverse reactions No No No Had a fall/change in ADL's that may No No No increase risk of falls Signs or symptoms of abuse and/or No No No neglect since last visit Have you been in the hospital since your No No No last visit? Has dressing in place as prescribed Yes Yes Yes Has compression in place as prescribed Yes Yes Yes Has offloadiing in place as prescribed N/A N/A N/A Experienced any changes in pain level or No No No management Left Footwear Regular Shoe Regular Shoe Regular Shoe Right Footwear Regular Shoe Regular Shoe Pain Scale: 0-10 Numeric Is Patient Pain Free? Yes Yes Yes - Nurse 1 - General Ulcer Measurement Start: 01/27/23 09:01 Freq: Status: Active Protocol: Activity Type Activity Date Activity User E-sign Co-sign Detail Recorded Client Recorded Date Recorded By Document 01/27/23 09:01 Desktop 01/27/23 09:07 Document 02/03/23 10:41 BM Desktop 02/03/23 10:46 BM Document 02/10/23 08:54 [facility] Desktop 02/10/23 08:58 BMF 01/27/23 02/03/23 02/10/23 09:01 10:41 08:54 Wound Center Nurse 1 #1 R Alcantara -Combined with other wound No No No -Current Size (cm) - Length 1.4 0.9 1.2 -Current Size (cm) - Width 1.0 0.7 1 -Current Size (cm) - Depth 0.5 0.1 0.1 -Total Square Cm 1.40 0.63 1.2 -Date of Last Picture (Recall this 01/27/23 02/10/23 field) -Photo Taken Yes No Yes -Epithelialization Medium 34-66% Small 1-33% -Tunneling No No No -Undermining/Tunneling No No No -Circular Undermining No No No -Exudate Amt Small Medium Medium -Exudate Type Serosanguineous Serosanguineous Serosanguineous -Wound Margin Distinct, Distinct, Distinct, Outline Outline Outline Attached Attached Attached -Granulation Amt Medium (34-66%) Small (1-33%) -Granulation Quality Hyper- Hyper- Hyper- granulation granulation, granulation,[place] -Slough/Fibrin Yes Yes Yes -Necrosis Amt Small (1-33%) Large (67-100%) -Necrotic Tissue Type Adherent Slough Adherent Slough -Structure Exposed N/A -Texture (Zenia-wound Skin Appearance) Assessed Assessed, Assessed, Scarring Scarring -Moisture (Zenia-wound Skin Appearance) Assessed Assessed Assessed -Color (Zenia-wound Skin Appearance) Assessed Assessed Assessed -Temperature (Zenia-wound Skin No Abnormality No Abnormality No Abnormality Appearance) (Pt Warm) (Pt Warm) (Pt Warm) -Tenderness on Palpation (Zenia-wound No No No Skin Appearance) -Ulcer Cleansing Soap and Water Soap and Water Soap and Water -Foul Odor after Cleansing No No No -Anesthetic Used 5% Lidocaine 5% Lidocaine 5% Lidocaine Gel Gel Gel Lower Limb Edema Present Yes Right Calf (cm) 49 Point of measurement (cm from the medial 46.5 instep) Right Ankle (cm) 25 Point of Measurement (cm from the medial 23.7 instep) WC - Nurse 2 - General Ulcer CM Notes Start: 01/27/23 09:01 Freq: Status: Active Protocol: Activity Type Activity Date Activity User E-sign Co-sign Detail Recorded Client Recorded Date Recorded By Document 01/27/23 09:24 MW Desktop 01/27/23 09:29 MW Document 02/03/23 10:57 MW Desktop 02/03/23 11:02 MW Document 02/10/23 09:10 MW Desktop 02/10/23 09:16 MW 01/27/23 02/03/23 02/10/23 09:24 10:57 09:10 Wound Center Nurse 2 #1 R [place] -Time 09:24 10:57 09:11 -Correct Patient Yes Yes Yes -Correct Side, Site, Position Yes Yes Yes -Correct Procedure Yes Yes Yes -Procedure Performed Yes Yes Yes -Type of Procedure Debridement Debridement Debridement -Clinical Debridement Subcutaneous Subcutaneous Subcutaneous -Tissue Removed Subcutaneous Epidermis, Subcutaneous Subcutaneous -Post Debridement (cm) - Length 1.2 0.9 0.7 -Post Debridement (cm) - Width 1.0 0.8 0.8 -Post Debridement (cm) - Depth 0.1 0.1 0.1 -Total Square (Post) (cm) 1.20 0.72 0.56 -Area of Debridement (cm) - Length 1.2 0.9 0.7 -Area of Debridement (cm) - Width 1.0 0.8 0.8 -Total Square (Area) (cm) 1.20 0.72 0.56 -Tunneling No No No -Undermining/Tunneling No No No -Circular Undermining No No No -Wound/Ulcer Outcome Not Healed Not Healed Not Healed -Ulcer Cleansing Rinsed/ Rinsed/ Rinsed/ Irrigated with Irrigated with Irrigated with Saline Saline Saline -Foul Odor after Cleansing No No No -Bioengineered Tissue Yes Yes Yes -Type of Bioengineered Tissue Epifix 18mm Epifix 18mm Epifix 18mm Disc Disc Disc -Expiration Date 10/25/27 10/25/27 -Product Lot Number [id number] -Percent Used 100 100 -Lot number of Saline Used [id number] -Bleeding Controlled with Pressure Silver Nitrate Pressure -Treatment Response Procedure Procedure Procedure Tolerated Well Tolerated Well Tolerated Well -Offloading No No No -Debridement - Subq, 1st 20sq cm No No No -Apply Skin Sub - 1st 25 sq cm - Legs 1 1 1 -Epifix 18mm Disc 3 3 3 Pain Scale: 0-10 Numeric Is Patient Pain Free? Yes Yes Yes - Nurse 3 - General Ulcer D/C NN Start: 01/27/23 09:01 Freq: Status: Active Protocol: Activity Type Activity Date Activity User E-sign Co-sign Detail Recorded Client Recorded Date Recorded By Document 01/27/23 09:35 RB Desktop 01/27/23 09:37 RB Document 02/10/23 09:20 GM Desktop 02/10/23 09:20 01/27/23 02/10/23 09:35 09:20 Wound Care Center Nurse 3 #1 R [place] -Ulcer Cleansing Not Cleansed -Primary Dressing Applied Aquacel Extra, Aquacel Extra Mepilex Border -Aquacel Extra 1 1 -Mepilex Border 1 Treatment Response Procedure Tolerated Well Pain Scale: 0-10 Numeric Is Patient Pain Free? Yes Yes Teaching: Wound Center Dressing Your Wound -Person Taught Patient Patient -Teaching Method Discussion, Discussion Demonstration -Response to teaching Verbalize Verbalize understanding understanding Compression Wraps & Stockings -Person Taught Patient -Teaching Method Discussion -Response to teaching Verbalize understanding WC - Visit Discharge Discharge Condition Stable Stable Ambulatory Status Ambulatory Ambulatory Transportation Private Auto Private Auto Medication Reconcilliation completed & No Yes provided to patient/care provider Clinical Summary of Care Provided Yes Yes Assessment/Plan Assessment/Plan (1) Hyperglycemia due to diabetes mellitus: CODE(S): E11.65 - Type 2 diabetes mellitus with hyperglycemia PLAN: Continue monitoring blood sugars (2) Nonhealing nonsurgical wound: CODE(S): T14.8XXA - Other injury of unspecified body region, initial encounter (3) Right leg injury: CODE(S): S89.91XA - Unspecified injury of right lower leg, initial encounter QUALIFIERS: Encounter type: subsequent encounter Qualified Code(s): S89.91XD - Unspecified injury of right lower leg, subsequent encounter PLAN: EpiFix #10 will be applied with wound veil and a Aquacel over top with a absorbent dressing Do not get the dressing wet Follow-up in 1 week (4) Edema of right lower extremity: CODE(S): R60.0 - Localized edema (5) Infected wound: CODE(S): T14.8XXA - Other injury of unspecified body region, initial encounter; L08.9 - Local infection of the skin and subcutaneous tissue, unspecified PLAN: Infection resolved
[2023-02-16 08:58] VITALS: BP 171/67; PULSE 86; RESP 18; TEMP 35.8; BMI 22.4
--- NOTE | 2023-02-16 10:02 | HP.PCM_ITS ---
History of Present Illness Date of Service: 02/16/23 Chief Complaint: Follow-up on traumatic wound right lower leg History of Wound: 57-year-old white female diabetic was walking across a bridge that collapsed over Labor weekend of September 20. Leg went through wood and had wood sticking out of her wound. Patient thought she got it all out but was also in a hoopa. She went to emergency room that did nothing and then she went to her family doctor and he put her on water pills and got an ultrasound which showed negative for blood clot. She was diagnosed with cellulitis and Bactrim DS was prescribed after the third urgent care visit. Patient stated there were no cultures ever taken and no x-rays of her leg ultrasound really did not look for foreign body but found that everything was compressible and there were no issues with blood clots. [facility] Medical History (Updated 02/16/23 @ 10:[address] Sav Martinez MD) Traumatic open wound of right lower leg with delayed healing Home Medications atorvastatin 40 mg tablet 40 mg PO DAILY 02/12/23 [History Last Taken Unknown] biotin-folic acid-vitamin B complex with C-zinc 3 mg-0.8 mg tablet 1 tab PO DAILY 02/12/23 [History Last Taken Unknown] glimepiride 4 mg tablet 4 mg PO BID 02/12/23 [History Last Taken Unknown] insulin glargine 100 unit/mL (3 mL) subcutaneous pen (Basaglar KwikPen U-100 Insulin) 55 unit subcut DAILY 02/12/23 [History Last Taken Unknown] meloxicam 15 mg tablet 15 mg PO DAILY PRN 02/12/23 [History Last Taken Unknown] metformin 500 mg tablet 500 mg PO DAILY 02/12/23 [History Last Taken Unknown] pioglitazone 30 mg tablet 30 mg PO DAILY 02/12/23 [History Last Taken Unknown] spironolactone 25 mg tablet 25 mg PO DAILY 02/12/23 [History Last Taken Unknown] Allergy/AdvReac Type Severity Reaction Status Date / Time aspirin Allergy NEEDS Verified 12/08/22 13:00 FOLLOW-UP Social History Smoking Status: Never smoker alcohol intake: current details: On occasions substance use type: does not use what type of physical activity do you participate in: none Vital Signs Vital Signs Vital Signs: 02/16/23 08:58 Temperature 96.4 F L Temperature Source Temporal Pulse Rate 86 Respiratory Rate 18 Blood Pressure 171/67 H Blood Pressure Mean 101 Blood Pressure Source Monitor Blood Pressure Position Semi-Fowlers Blood Pressure Location Left Arm Weight Weight: 135 lb Body Mass Index (BMI) 22.4 Physical Exam Const alert, oriented x3 and no apparent distress Constitutional Narrative: The patient is morbidly obese. General Appearance: cooperative, comfortable, well kempt and well developed Orientation / Consciousness: awake, oriented to person, oriented to place and oriented to time Exam Limitations: no limitations HEENT normocephalic and head/scalp atraumatic Head and Scalp: normal to inspection, normocephalic and atraumatic Face and Sinus: normal facial exam Nose: external nose normal General Ear: hearing grossly impaired External Ear: external ears normal Mouth: oral and palatal mucosa normal Eyes PERRL and EOMs intact bilaterally General Eye: normal appearance of both eyes Neck full ROM General: normal visual inspection Resp normal respiratory effort, normal air movement and no retractions Effort and Inspection: able to speak in complete sentences and symmetric chest movement Cardio Palpation: normal PMI Rate: regular rate Rhythm: regular rhythm GI Auscultation: normoactive bowel sounds Palpation: soft Back/Spine Cervical Spine: cervical ROM normal Extremity normal to inspection General Extremity: normal exam except as noted Skin no rashes or lesions noted Wound Narrative: A wound is noted on the patient's right pretibial surface. There is a small amount of bioburden. The wound is generally pink and healthy in appearance. There is no sign of infection or cellulitis. Dimensions are documented elsewhere. The size of the wound has diminished since the patient's prior visit. Mild swelling and edema are noted in the patient's right lower extremity. Neuro oriented x3, CN's II-XII intact bilaterally, moves all extremities and no focal motor deficits Sensorium / Orientation: awake, alert, oriented to person, oriented to place and oriented to time Psych Appearance: grossly normal Speech: normal speech Thought Content: normal thought content Judgement: judgement good Debridement Note Debridement Note Wound debrided: Right pretibial wound Laterality: Right Type of Debridement: Excisional debridement Anesthesia Used: 5% Lidocaine Gel Depth: Down to and including healthy tissue and in the subcutaneous layer Percentage of wound debrided: 100 Instrument Used: 5mm curette Tissue Removed: Bioburden Severity: Fat Layer Exposed Amount of bleeding with debridement: Mild Bleeding Controlled with: Compression and gauze Patient tolerated procedure: Patient tolerated procedure well Post-Debridement Measurements and Additional Note: Post-Debridement Measurements/Treatment WC - Nurse 1 - General Ulcer Assessment Start: 01/27/23 09:01 Freq: Status: Active Protocol: MEENU Activity Type Activity Date Activity User E-sign Co-sign Detail Recorded Client Recorded Date Recorded By Document 01/27/23 09:01 GM Desktop 01/27/23 09:07 GM Document 02/03/23 10:41 BMF Desktop 02/03/23 10:46 BMF Document 02/10/23 08:54 BMF Desktop 02/10/23 08:58 BMF Document 02/16/23 08:58 RB Desktop 02/16/23 09:00 RB 01/27/23 02/03/23 02/10/23 09:01 10:41 08:54 - Today's Visit Information Type of service Follow-up Visit Follow-up Visit Follow-up Visit (Physician/FORESTRY ADVISER (Physician/FORESTRY ADVISER (Physician/FORESTRY ADVISER ) ) ) Arrival Mode Ambulatory Ambulatory Ambulatory Transfer Assistance None None Patient Identification Verified (Name & Yes Yes Yes ) Patient Requires Transmission-Based No No Precautions Height and Weight Body Mass Index (BMI) 22.4 22.4 22.4 BMI Classification Normal Normal Normal Vital Signs Temperature (97.8 F-99.1 F) 95.8 F L 97.1 F L 97 F L Temperature Source Temporal Temporal Temporal Pulse Rate (60-100) 75 82 90 Pulse Location Monitor Monitor Monitor Respiratory Rate (12-18) 16 16 Respiratory rate source Observation Observation Oxygen Delivery Method Room Air Room Air Room Air Blood Pressure (90/60-120/80) 175/71 H 152/70 H 149/72 H Blood Pressure Mean 105 97 97 Source Monitor Monitor Monitor Position Sitting Sitting Sitting Blood Pressure Location Left Arm Left Arm Right Forearm History Since Last Visit- (Skip if this is Patient's initial visit) Have you changed medications since your No No No last visit? Any new allergies or adverse reactions No No No Had a fall/change in ADL's that may No No No increase risk of falls Signs or symptoms of abuse and/or No No No neglect since last visit Have you been in the hospital since your No No No last visit? Has dressing in place as prescribed Yes Yes Yes Has compression in place as prescribed Yes Yes Yes Has offloadiing in place as prescribed N/A N/A N/A Experienced any changes in pain level or No No No management Left Footwear Regular Shoe Regular Shoe Regular Shoe Right Footwear Regular Shoe Regular Shoe Pain Scale: 0-10 Numeric Is Patient Pain Free? Yes Yes Yes 02/16/23 08:58 WC - Today's Visit Information Type of service Follow-up Visit (Physician/FORESTRY ADVISER ) Arrival Mode Ambulatory Transfer Assistance None Patient Identification Verified (Name & Yes ) Patient Requires Transmission-Based No Precautions Height and Weight Body Mass Index (BMI) 22.4 BMI Classification Normal Vital Signs Temperature (97.8 F-99.1 F) 96.4 F L Temperature Source Temporal Pulse Rate (60-100) 86 Pulse Location Monitor Respiratory Rate (12-18) 18 Respiratory rate source Observation Oxygen Delivery Method Blood Pressure (90/60-120/80) 171/67 H Blood Pressure Mean 101 Source Monitor Position Semi-Fowlers Blood Pressure Location Left Arm History Since Last Visit- (Skip if this is Patient's initial visit) Have you changed medications since your No last visit? Any new allergies or adverse reactions No Had a fall/change in ADL's that may No increase risk of falls Signs or symptoms of abuse and/or No neglect since last visit Have you been in the hospital since your No last visit? Has dressing in place as prescribed Yes Has compression in place as prescribed Yes Has offloadiing in place as prescribed No Experienced any changes in pain level or No management Left Footwear Right Footwear Pain Scale: 0-10 Numeric Is Patient Pain Free? Yes - Nurse 1 - General Ulcer Measurement Start: 01/27/23 09:01 Freq: Status: Active Protocol: Activity Type Activity Date Activity User E-sign Co-sign Detail Recorded Client Recorded Date Recorded By Document 01/27/23 09:01 GM Desktop 01/27/23 09:07 Document 02/03/23 10:41 BM Desktop 02/03/23 10:46 BM Document 02/10/23 08:54 BMF Desktop 02/10/23 08:58 BMF Document 02/16/23 08:58 RB Desktop 02/16/23 09:00 RB 01/27/23 02/03/23 02/10/23 09:01 10:41 08:54 Wound Center Nurse 1 #1 R Vivas -Combined with other wound No No No -Current Size (cm) - Length 1.4 0.9 1.2 -Current Size (cm) - Width 1.0 0.7 1 -Current Size (cm) - Depth 0.5 0.1 0.1 -Total Square Cm 1.40 0.63 1.2 -Date of Last Picture (Recall this 01/27/23 02/10/23 field) -Photo Taken Yes No Yes -Epithelialization Medium 34-66% Small 1-33% -Tunneling No No No -Undermining/Tunneling No No No -Circular Undermining No No No -Exudate Amt Small Medium Medium -Exudate Type Serosanguineous Serosanguineous Serosanguineous -Wound Margin Distinct, Distinct, Distinct, Outline Outline Outline Attached Attached Attached -Granulation Amt Medium (34-66%) Small (1-33%) -Granulation Quality Hyper- Hyper- Hyper- granulation granulation, granulation,Red [place] -Slough/Fibrin Yes Yes Yes -Necrosis Amt Small (1-33%) Large (67-100%) -Necrotic Tissue Type Adherent Slough Adherent Slough -Structure Exposed N/A -Texture (Zenai-wound Skin Appearance) Assessed Assessed, Assessed, Scarring Scarring -Moisture (Zenia-wound Skin Appearance) Assessed Assessed Assessed -Color (Zenia-wound Skin Appearance) Assessed Assessed Assessed -Temperature (Zenia-wound Skin No Abnormality No Abnormality No Abnormality Appearance) (Pt Warm) (Pt Warm) (Pt Warm) -Tenderness on Palpation (Zenia-wound No No No Skin Appearance) -Ulcer Cleansing Soap and Water Soap and Water Soap and Water -Foul Odor after Cleansing No No No -Anesthetic Used 5% Lidocaine 5% Lidocaine 5% Lidocaine Gel Gel Gel Lower Limb Edema Present Yes Right Calf (cm) 49 Point of measurement (cm from the medial 46.5 instep) Right Ankle (cm) 25 Point of Measurement (cm from the medial 23.7 instep) 02/16/23 08:58 Wound Center Nurse 1 #1 R Vivas -Combined with other wound No -Current Size (cm) - Length 1 -Current Size (cm) - Width 1 -Current Size (cm) - Depth 0.1 -Total Square Cm 1 -Date of Last Picture (Recall this field) -Photo Taken -Epithelialization -Tunneling No -Undermining/Tunneling No -Circular Undermining No -Exudate Amt Medium -Exudate Type Serosanguineous -Wound Margin Distinct, Outline Attached -Granulation Amt Medium (34-66%) -Granulation Quality [place] -Slough/Fibrin Yes -Necrosis Amt Medium (34-66%) -Necrotic Tissue Type Adherent Slough -Structure Exposed N/A -Texture (Zenia-wound Skin Appearance) Assessed -Moisture (Zenia-wound Skin Appearance) Assessed -Color (Zenia-wound Skin Appearance) Assessed, Hemosiderin Staining -Temperature (Zenia-wound Skin No Abnormality Appearance) (Pt Warm) -Tenderness on Palpation (Zenia-wound No Skin Appearance) -Ulcer Cleansing Wound Cleanser -Foul Odor after Cleansing No -Anesthetic Used 5% Lidocaine Gel Lower Limb Edema Present Yes Right Calf (cm) 48.1 Point of measurement (cm from the medial instep) Right Ankle (cm) 24 Point of Measurement (cm from the medial instep) WC - Nurse 2 - General Ulcer CM Notes Start: 01/27/23 09:01 Freq: Status: Active Protocol: Activity Type Activity Date Activity User E-sign Co-sign Detail Recorded Client Recorded Date Recorded By Document 01/27/23 09:24 MW Desktop 01/27/23 09:29 MW Document 02/03/23 10:57 MW Desktop 02/03/23 11:02 MW Document 02/10/23 09:10 MW Desktop 02/10/23 09:16 MW 01/27/23 02/03/23 02/10/23 09:24 10:57 09:10 Wound Center Nurse 2 #1 R Vivas -Time 09:24 10:57 09:11 -Correct Patient Yes Yes Yes -Correct Side, Site, Position Yes Yes Yes -Correct Procedure Yes Yes Yes -Procedure Performed Yes Yes Yes -Type of Procedure Debridement Debridement Debridement -Clinical Debridement Subcutaneous Subcutaneous Subcutaneous -Tissue Removed Subcutaneous Epidermis, Subcutaneous Subcutaneous -Post Debridement (cm) - Length 1.2 0.9 0.7 -Post Debridement (cm) - Width 1.0 0.8 0.8 -Post Debridement (cm) - Depth 0.1 0.1 0.1 -Total Square (Post) (cm) 1.20 0.72 0.56 -Area of Debridement (cm) - Length 1.2 0.9 0.7 -Area of Debridement (cm) - Width 1.0 0.8 0.8 -Total Square (Area) (cm) 1.20 0.72 0.56 -Tunneling No No No -Undermining/Tunneling No No No -Circular Undermining No No No -Wound/Ulcer Outcome Not Healed Not Healed Not Healed -Ulcer Cleansing Rinsed/ Rinsed/ Rinsed/ Irrigated with Irrigated with Irrigated with Saline Saline Saline -Foul Odor after Cleansing No No No -Bioengineered Tissue Yes Yes Yes -Type of Bioengineered Tissue Epifix 18mm Epifix 18mm Epifix 18mm Disc Disc Disc -Expiration Date 10/25/27 10/25/27 -Product Lot Number [id number] -Percent Used 100 100 -Lot number of Saline Used [id number] -Bleeding Controlled with Pressure Silver Nitrate Pressure -Treatment Response Procedure Procedure Procedure Tolerated Well Tolerated Well Tolerated Well -Offloading No No No -Debridement - Subq, 1st 20sq cm No No No -Apply Skin Sub - 1st 25 sq cm - Legs 1 1 1 -Epifix 18mm Disc 3 3 3 Pain Scale: 0-10 Numeric Is Patient Pain Free? Yes Yes Yes - Nurse 3 - General Ulcer D/C NN Start: 01/27/23 09:01 Freq: Status: Active Protocol: Activity Type Activity Date Activity User E-sign Co-sign Detail Recorded Client Recorded Date Recorded By Document 01/27/23 09:35 Desktop 01/27/23 09:37 RB Document 02/10/23 09:20 Desktop 02/10/23 09:20 01/27/23 02/10/23 09:35 09:20 Wound Care Center Nurse 3 #1 R Vivas -Ulcer Cleansing Not Cleansed -Primary Dressing Applied Aquacel Extra, Aquacel Extra Mepilex Border -Aquacel Extra 1 1 -Mepilex Border 1 Treatment Response Procedure Tolerated Well Pain Scale: 0-10 Numeric Is Patient Pain Free? Yes Yes Teaching: Wound Center Dressing Your Wound -Person Taught Patient Patient -Teaching Method Discussion, Discussion Demonstration -Response to teaching Verbalize Verbalize understanding understanding Compression Wraps & Stockings -Person Taught Patient -Teaching Method Discussion -Response to teaching Verbalize understanding WC - Visit Discharge Discharge Condition Stable Stable Ambulatory Status Ambulatory Ambulatory Transportation Private Auto Private Auto Medication Reconcilliation completed & No Yes provided to patient/care provider Clinical Summary of Care Provided Yes Yes Assessment/Plan Assessment/Plan (1) Traumatic open wound of right lower leg with delayed healing: CODE(S): S81.801D - Unspecified open wound, right lower leg, subsequent encounter (2) Nonhealing nonsurgical wound: CODE(S): T14.8XXA - Other injury of unspecified body region, initial encounter (3) Right leg injury: CODE(S): S89.91XA - Unspecified injury of right lower leg, initial encounter QUALIFIERS: Encounter type: initial encounter Qualified Code(s): S89.91XA - Unspecified injury of right lower leg, initial encounter (4) Edema of right lower extremity: CODE(S): R60.0 - Localized edema (5) Hyperglycemia due to diabetes mellitus: CODE(S): E11.65 - Type 2 diabetes mellitus with hyperglycemia PLAN: Continue monitoring blood sugars (6) Infected wound: CODE(S): T14.8XXA - Other injury of unspecified body region, initial encounter; L08.9 - Local infection of the skin and subcutaneous tissue, unspecified PLAN: Infection resolved PLAN: Plan A total of 10 allografts have been applied to the patient's right lower ext remity traumatic wound. We are to now implement the use of Fibracol, which will be applied topically on a daily basis. The patient has been instructed in the appropriate means of application. She has been instructed to elevate her lower extremities is much as possible. Elevation is to be to heart level, or higher. Prolonged idle sitting has been discouraged. Activity has been encouraged. We ight loss has also been recommended. Compression is to be continued by means of Tubigrip's, which are to be donned on a daily basis. The patient is to follow- up in 1 week with her regular provider, Isabel Florez NP. Total Time: 30 minutes
== END 2023-02-23 23:59 | disposition home or self-care (01) ==
LOC: WC 09:00
PROVIDERS: PCP Family Medicine; Referring Provider Family Medicine; Visit Provider Nurse Practitioner
DX: S81.801A Unspecified open wound, right lower leg, initial encounter (principal); E11.65 Type 2 diabetes mellitus with hyperglycemia; Z79.4 Long term (current) use of insulin; W13.1XXA Fall from, out of or through bridge, initial encounter; R60.0 Localized edema; L08.9 Local infection of the skin and subcutaneous tissue, unspecified; Z79.84 Long term (current) use of oral hypoglycemic drugs; Z79.899 Other long term (current) drug therapy
CPT/HCPCS: 11042; 15271; Q4186

== ENCOUNTER 2023-03-17 09:30 | Outpatient (RCR) | payer BC, SELFPAY ==
[2023-02-24 00:49] VITALS: BP 171/67; PULSE 86; RESP 18; TEMP 35.8; BMI 22.4
[2023-02-24 09:45] VITALS: BP 160/53; PULSE 75; RESP 16; TEMP 35.5; BMI 22.4
--- NOTE | 2023-02-24 12:22 | PCM.WC.PN ---
History of Present Illness Date of Service: 02/24/23 Chief Complaint: Follow-up on traumatic wound right lower leg History of Wound: 57-year-old white female diabetic was walking [place] bridge that [place] weekend of [place] 20. Leg went through wood and had wood sticking out of her wound. Patient thought she got it all out but was also in a [place]. She went to emergency room that did nothing and then she went to her family doctor and he put her on water pills and got an ultrasound which showed negative for blood clot. She was diagnosed with cellulitis and Bactrim DS was prescribed after the third urgent care visit. Patient stated there were no cultures ever taken and no x-rays of her leg ultrasound really did not look for foreign body but found that everything was compressible and there were no issues with blood clots. Progress of Wound: The wound is almost healed she has a small circular open area in the middle of the wound. We will try her on some Promogran and moistened with dressing over top for 2 weeks and follow her up then she should be healed Subjective Subjective Patient is very pleased with outcomes Objective Data Objective Data Small circular round area that still open everything else have skin over top we will follow-up in 2 weeks. No sign of infection no redness or swelling no pain Vital Signs: Vital Signs Temp Pulse Resp BP O2 Del Method 96 F L 75 16 160/53 H Room Air 02/24/23 09:45 02/24/23 09:45 02/24/23 09:45 02/24/23 09:45 02/24/23 09:45 Oxygen Delivery Method Room Air Weight: 135 lb Body Mass Index (BMI) 22.4 Lab / Micro Data Attestation: I reviewed the patient's lab results. Physical Exam Const alert, oriented x3 and no apparent distress Constitutional Narrative: The patient is morbidly obese. General Appearance: cooperative, comfortable, well kempt and well developed Orientation / Consciousness: awake, oriented to person, oriented to place and oriented to time Exam Limitations: no limitations HEENT normocephalic and head/scalp atraumatic Head and Scalp: normal to inspection, normocephalic and atraumatic Face and Sinus: normal facial exam Nose: external nose normal General Ear: hearing grossly impaired External Ear: external ears normal Mouth: oral and palatal mucosa normal Eyes PERRL and EOMs intact bilaterally General Eye: normal appearance of both eyes Neck full ROM General: normal visual inspection Resp normal respiratory effort, normal air movement and no retractions Effort and Inspection: able to speak in complete sentences and symmetric chest movement Cardio Palpation: normal PMI Rate: regular rate Rhythm: regular rhythm GI Auscultation: normoactive bowel sounds Palpation: soft Back/Spine Cervical Spine: cervical ROM normal Extremity normal to inspection General Extremity: normal exam except as noted Skin no rashes or lesions noted Wound Narrative: A wound is noted on the patient's right pretibial surface. There is a small amount of bioburden. The wound is generally pink and healthy in appearance. There is no sign of infection or cellulitis. Dimensions are documented elsewhere. The size of the wound has diminished since the patient's prior visit. Mild swelling and edema are noted in the patient's right lower extremity. Neuro oriented x3, CN's II-XII intact bilaterally, moves all extremities and no focal motor deficits Sensorium / Orientation: awake, alert, oriented to person, oriented to place and oriented to time Psych Appearance: grossly normal Speech: normal speech Thought Content: normal thought content Judgement: judgement good Debridement Note Debridement Note Wound debrided: Right pretibial wound Laterality: Right Type of Debridement: Excisional debridement Anesthesia Used: 5% Lidocaine Gel Depth: Down to and including healthy tissue and in the subcutaneous layer Percentage of wound debrided: 100 Instrument Used: 5mm curette Tissue Removed: Bioburden Severity: Limited To Skin Breakdown Amount of bleeding with debridement: Mild Bleeding Controlled with: Compression and gauze Patient tolerated procedure: Patient tolerated procedure well Post-Debridement Measurements and Additional Note: Post-Debridement Measurements/Treatment - Nurse 1 - General Ulcer Assessment Start: 02/24/23 09:44 Freq: Status: Active Protocol: .LOWEXT Activity Type Activity Date Activity User E-sign Co-sign Detail Recorded Client Recorded Date Recorded By Document 02/24/23 09:45 [facility] Desktop 02/24/23 09:49 [facility] 02/24/23 09:45 - Today's Visit Information Type of service Follow-up Visit (Physician/[employer] 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 ) Arrival Mode Ambulatory Transfer Assistance None Patient Identification Verified (Name & Yes ) Patient Requires Transmission-Based No Precautions Height and Weight Body Mass Index (BMI) 22.4 BMI Classification Normal Vital Signs Temperature (97.8 F-99.1 F) 96 F L Temperature Source Temporal Pulse Rate (60-100) 75 Pulse Location Monitor Respiratory Rate (12-18) 16 Respiratory rate source Observation Oxygen Delivery Method Room Air Blood Pressure (90/60-120/80) 160/53 H Blood Pressure Mean (mm Hg) 88 Source Monitor Position Sitting Blood Pressure Location Right Arm History Since Last Visit- (Skip if this is Patient's initial visit) Have you changed medications since your No last visit? Any new allergies or adverse reactions No Had a fall/change in ADL's that may No increase risk of falls Signs or symptoms of abuse and/or No neglect since last visit Have you been in the hospital since your No last visit? Has dressing in place as prescribed Yes Has compression in place as prescribed Yes Has offloadiing in place as prescribed N/A Experienced any changes in pain level or No management Left Footwear Regular Shoe Right Footwear Regular Shoe Pain Scale: 0-10 Numeric Is Patient Pain Free? Yes WC - Nurse 1 - General Ulcer Measurement Start: 02/24/23 09:44 Freq: Status: Active Protocol: Activity Type Activity Date Activity User E-sign Co-sign Detail Recorded Client Recorded Date Recorded By Document 02/24/23 09:45 [facility] Desktop 02/24/23 09:49 [email or web address] 02/24/23 09:45 Wound Center Nurse 1 #1 R Vivas -Combined with other wound No -Current Size (cm) - Length 0.6 -Current Size (cm) - Width 0.7 -Current Size (cm) - Depth 0.1 -Total Square Cm 0.42 -Photo Taken No -Epithelialization None Present -Tunneling No -Undermining/Tunneling No -Circular Undermining No -Exudate Amt Medium -Exudate Type Serosanguineous -Wound Margin Distinct, Outline Attached -Granulation Amt Small (1-33%) -Granulation Quality Red -Slough/Fibrin Yes -Necrosis Amt Large (67-100%) -Necrotic Tissue Type Adherent Slough -Texture (Zenia-wound Skin Appearance) Assessed, Scarring -Moisture (Zenia-wound Skin Appearance) Assessed -Color (Zenia-wound Skin Appearance) Assessed, Erythema -Temperature (Zenia-wound Skin No Abnormality Appearance) (Pt Warm) -Tenderness on Palpation (Zenia-wound No Skin Appearance) -Ulcer Cleansing Rinsed/ Irrigated with Saline -Foul Odor after Cleansing No -Anesthetic Used 5% Lidocaine Gel Right Calf (cm) 46 Right Ankle (cm) 25 - Nurse 2 - General Ulcer CM Notes Start: 02/24/23 09:44 Freq: Status: Active Protocol: Activity Type Activity Date Activity User E-sign Co-sign Detail Recorded Client Recorded Date Recorded By Document 02/24/23 10:01 MW Desktop 02/24/23 10:03 MW 02/24/23 10:01 Wound Center Nurse 2 #1 R Vivas -Time 10:01 -Correct Patient Yes -Correct Side, Site, Position Yes -Correct Procedure Yes -Procedure Performed Yes -Type of Procedure Debridement -Clinical Debridement Subcutaneous -Tissue Removed Subcutaneous -Post Debridement (cm) - Length 0.8 -Post Debridement (cm) - Width 0.7 -Post Debridement (cm) - Depth 0.1 -Total Square (Post) (cm) 0.56 -Area of Debridement (cm) - Length 0.8 -Area of Debridement (cm) - Width 0.7 -Total Square (Area) (cm) 0.56 -Tunneling No -Undermining/Tunneling No -Circular Undermining No -Wound/Ulcer Outcome Not Healed -Ulcer Cleansing Rinsed/ Irrigated with Saline -Foul Odor after Cleansing No -Bioengineered Tissue No -Bleeding Controlled with Pressure -Treatment Response Procedure Tolerated Well -Offloading No -Debridement - Subq, 1st 20sq cm Yes Pain Scale: 0-10 Numeric Is Patient Pain Free? Yes - Nurse 3 - General Ulcer D/C NN Start: 02/24/23 09:44 Freq: Status: Active Protocol: Activity Type Activity Date Activity User E-sign Co-sign Detail Recorded Client Recorded Date Recorded By Document 02/24/23 10:03 MW Desktop 02/24/23 10:05 MW 02/24/23 10:03 Wound Care Center Nurse 3 #1 R Vivas -Ulcer Cleansing Rinsed/ Irrigated with Saline -Foul Odor after Cleansing No -Negative Pressure Wound Therapy N/A -Primary Dressing Applied Mepilex Border, Promogran Ramya Matter -Mepilex Border 1 -Promogran Ramya Matter 2 Right -Lotion applied to leg before No compression wrap -Tubular Bandage Single Layer -Size of Tubigrip Used Size D -Size D ($) 2 Treatment Response Procedure Tolerated Well Pain Scale: 0-10 Numeric Is Patient Pain Free? Yes Teaching: Wound Center Dressing Your Wound -Person Taught Patient -Teaching Method Discussion, Demonstration -Response to teaching Verbalize understanding WC - Visit Discharge Discharge Condition Stable Ambulatory Status Ambulatory Transportation Private Auto Accompanied by self Medication Reconcilliation completed & No provided to patient/care provider Clinical Summary of Care Provided Yes Assessment/Plan Assessment/Plan (1) Hyperglycemia due to diabetes mellitus: CODE(S): E11.65 - Type 2 diabetes mellitus with hyperglycemia PLAN: Continue monitoring blood sugars (2) Nonhealing nonsurgical wound: CODE(S): T14.8XXA - Other injury of unspecified body region, initial encounter (3) Right leg injury: CODE(S): S89.91XA - Unspecified injury of right lower leg, initial encounter QUALIFIERS: Encounter type: initial encounter Qualified Code(s): S89.91XA - Unspecified injury of right lower leg, initial encounter PLAN: Wash leg with antibacterial soap and water apply the Promogran to wound base moistened with dry dressing over top daily then follow-up in 2 weeks (4) Edema of right lower extremity: CODE(S): R60.0 - Localized edema (5) Infected wound: CODE(S): T14.8XXA - Other injury of unspecified body region, initial encounter; L08.9 - Local infection of the skin and subcutaneous tissue, unspecified PLAN: Infection resolved
[2023-03-10 09:03] VITALS: BP 155/93; PULSE 92; TEMP 36; BMI 22.4
--- NOTE | 2023-03-10 12:11 | PCM.WC.PN ---
History of Present Illness Date of Service: 03/10/23 Chief Complaint: Follow-up on traumatic wound right lower leg History of Wound: 57-year-old white female diabetic was walking across a bridge that collapsed over [facility] weekend of September 20. Leg went through wood and had wood sticking out of her wound. Patient thought she got it all out but was also in a [place]. She went to emergency room that did nothing and then she went to her family doctor and he put her on water pills and got an ultrasound which showed negative for blood clot. She was diagnosed with cellulitis and Bactrim DS was prescribed after the third urgent care visit. Patient stated there were no cultures ever taken and no x-rays of her leg ultrasound really did not look for foreign body but found that everything was compressible and there were no issues with blood clots. Progress of Wound: The wound is almost healed she has a small circular open area in the middle of the wound. We will try her on some Promogran and moistened with dressing over top. Patient measures about the same she still has this wound. We will obtain a culture today to make sure were not missing anything. She is developing some skin but its not healed over yet Subjective Subjective Patient agrees with the culture Objective Data Objective Data Again not much movement on the closure of this wound looks okay she still says it has some itching and pain around the wound but no redness is noted no swelling we will reculture it to make sure that she has not developed any kind of superficial infection that is stopping from healing. Vital Signs: Vital Signs Temp Pulse Resp BP O2 Del Method 96.8 F L 92 16 155/93 H Room Air 03/10/23 09:03 03/10/23 09:03 02/24/23 09:45 03/10/23 09:03 03/10/23 09:03 Oxygen Delivery Method Room Air Weight: 135 lb Body Mass Index (BMI) 22.4 Debridement Note Debridement Note Wound debrided: Right alcantara traumatic wound Type of Debridement: Excisional debridement Anesthesia Used: 5% Lidocaine Gel Depth: Down to and including healthy tissue Percentage of wound debrided: 100 Instrument Used: 3mm curette Tissue Removed: Fibrin Severity: Limited To Skin Breakdown Amount of bleeding with debridement: Mild Bleeding Controlled with: Pressure Patient tolerated procedure: Patient tolerated procedure well Post-Debridement Measurements and Additional Note: Post-Debridement Measurements/Treatment WC - Nurse 1 - General Ulcer Assessment Start: 02/24/23 09:44 Freq: Status: Active Protocol: .JOSÉ Activity Type Activity Date Activity User E-sign Co-sign Detail Recorded Client Recorded Date Recorded By Document 02/24/23 09:45 [facility] Desktop 02/24/23 09:49 [facility] Document 03/10/23 09:03 Desktop 03/10/23 09:11 02/24/23 03/10/23 09:45 09:03 - Today's Visit Information Type of service Follow-up Visit Follow-up Visit (Physician/PAINTER HAND (Physician/PAINTER HAND ) ) Arrival Mode Ambulatory Ambulatory Transfer Assistance None None Patient Identification Verified (Name & Yes Yes ) Patient Requires Transmission-Based No No Precautions Safety Precautions NA Height and Weight Body Mass Index (BMI) 22.4 22.4 BMI Classification Normal Normal Vital Signs Temperature (97.8 F-99.1 F) 96 F L 96.8 F L Temperature Source Temporal Temporal Pulse Rate (60-100) 75 92 Pulse Location Monitor Monitor Respiratory Rate (12-18) 16 Respiratory rate source Observation Oxygen Delivery Method Room Air Room Air Blood Pressure (90/60-120/80) 160/53 H 155/93 H Blood Pressure Mean (mm Hg) 88 113 Source Monitor Monitor Position Sitting Sitting Blood Pressure Location Right Arm Right Forearm History Since Last Visit- (Skip if this is Patient's initial visit) Have you changed medications since your No No last visit? Any new allergies or adverse reactions No No Had a fall/change in ADL's that may No No increase risk of falls Signs or symptoms of abuse and/or No No neglect since last visit Have you been in the hospital since your No No last visit? Has dressing in place as prescribed Yes Yes Has compression in place as prescribed Yes Yes Has offloadiing in place as prescribed N/A No Experienced any changes in pain level or No No management Left Footwear Regular Shoe Regular Shoe Right Footwear Regular Shoe Regular Shoe Pain Scale: 0-10 Numeric Is Patient Pain Free? Yes Yes - Nurse 1 - General Ulcer Measurement Start: 02/24/23 09:44 Freq: Status: Active Protocol: Activity Type Activity Date Activity User E-sign Co-sign Detail Recorded Client Recorded Date Recorded By Document 02/24/23 09:45 [facility] Desktop 02/24/23 09:49 [facility] Document 03/10/23 09:03 GM Desktop 03/10/23 09:11 GM 02/24/23 03/10/23 09:45 09:03 Wound Center Nurse 1 #1 R Alcantara -Combined with other wound No No -Current Size (cm) - Length 0.6 0.6 -Current Size (cm) - Width 0.7 0.5 -Current Size (cm) - Depth 0.1 0.1 -Total Square Cm 0.42 0.30 -Photo Taken No No -Epithelialization None Present Small 1-33% -Tunneling No No -Undermining/Tunneling No No -Circular Undermining No No -Exudate Amt Medium Small -Exudate Type Serosanguineous Serosanguineous -Wound Margin Distinct, Distinct, Outline Outline Attached Attached -Granulation Amt Small (1-33%) Large (67-100%) -Granulation Quality Red Red -Slough/Fibrin Yes -Necrosis Amt Large (67-100%) Small (1-33%) -Necrotic Tissue Type Adherent Slough -Structure Exposed N/A -Texture (Zenia-wound Skin Appearance) Assessed, Assessed, Scarring Scarring -Moisture (Zenia-wound Skin Appearance) Assessed Assessed -Color (Zenia-wound Skin Appearance) Assessed, Not Assessed Erythema -Temperature (Zenia-wound Skin No Abnormality No Abnormality Appearance) (Pt Warm) (Pt Warm) -Tenderness on Palpation (Zenia-wound No No Skin Appearance) -Ulcer Cleansing Rinsed/ Soap and Water Irrigated with Saline -Foul Odor after Cleansing No No -Anesthetic Used 5% Lidocaine 5% Lidocaine Gel Gel Right Calf (cm) 46 49.7 Right Ankle (cm) 25 25 WC - Nurse 2 - General Ulcer CM Notes Start: 02/24/23 09:44 Freq: Status: Active Protocol: Activity Type Activity Date Activity User E-sign Co-sign Detail Recorded Client Recorded Date Recorded By Document 02/24/23 10:01 MW Desktop 02/24/23 10:03 MW Document 03/10/23 09:18 MW Desktop 03/10/23 09:21 MW 02/24/23 03/10/23 10:01 09:18 Wound Center Nurse 2 #1 R Alcantara -Time 10:01 09:19 -Correct Patient Yes Yes -Correct Side, Site, Position Yes Yes -Correct Procedure Yes Yes -Procedure Performed Yes Yes -Type of Procedure Debridement Debridement -Clinical Debridement Subcutaneous Subcutaneous -Tissue Removed Subcutaneous Subcutaneous -Post Debridement (cm) - Length 0.8 0.5 -Post Debridement (cm) - Width 0.7 0.5 -Post Debridement (cm) - Depth 0.1 0.1 -Total Square (Post) (cm) 0.56 0.25 -Area of Debridement (cm) - Length 0.8 0.5 -Area of Debridement (cm) - Width 0.7 0.5 -Total Square (Area) (cm) 0.56 0.25 -Tunneling No No -Undermining/Tunneling No No -Circular Undermining No No -Wound/Ulcer Outcome Not Healed Not Healed -Ulcer Cleansing Rinsed/ Rinsed/ Irrigated with Irrigated with Saline Saline -Foul Odor after Cleansing No No -Bioengineered Tissue No No -Bleeding Controlled with Pressure Pressure -Treatment Response Procedure Procedure Tolerated Well Tolerated Well -Offloading No No -Debridement - Subq, 1st 20sq cm Yes Yes Pain Scale: 0-10 Numeric Is Patient Pain Free? Yes Yes - Nurse 3 - General Ulcer D/C NN Start: 02/24/23 09:44 Freq: Status: Active Protocol: Activity Type Activity Date Activity User E-sign Co-sign Detail Recorded Client Recorded Date Recorded By Document 02/24/23 10:03 MW Desktop 02/24/23 10:05 MW Document 03/10/23 09:31 Desktop 03/10/23 09:32 02/24/23 03/10/23 10:03 09:31 Wound Care Center Nurse 3 #1 R Alcantara -Ulcer Cleansing Rinsed/ Not Cleansed Irrigated with Saline -Foul Odor after Cleansing No No -Negative Pressure Wound Therapy N/A N/A -Primary Dressing Applied Mepilex Border, Mepilex Border, Promogran Promogran Ramya Matter Ramya Matter -Mepilex Border 1 1 -Promogran Ramya Matter 2 1 Right -Lotion applied to leg before No compression wrap -Tubular Bandage Single Layer -Size of Tubigrip Used Size D -Size D ($) 2 Treatment Response Procedure Tolerated Well Pain Scale: 0-10 Numeric Is Patient Pain Free? Yes Yes Teaching: Wound Center Dressing Your Wound -Person Taught Patient Patient -Teaching Method Discussion, Discussion Demonstration -Response to teaching Verbalize Verbalize understanding understanding Compression Wraps & Stockings -Person Taught Patient -Teaching Method Discussion -Response to teaching Verbalize understanding WC - Visit Discharge Discharge Condition Stable Stable Ambulatory Status Ambulatory Ambulatory Transportation Private Auto Private Auto Accompanied by self Medication Reconcilliation completed & No Yes provided to patient/care provider Clinical Summary of Care Provided Yes Yes Assessment/Plan Assessment/Plan (1) Hyperglycemia due to diabetes mellitus: CODE(S): E11.65 - Type 2 diabetes mellitus with hyperglycemia PLAN: Continue monitoring blood sugars (2) Nonhealing nonsurgical wound: CODE(S): T14.8XXA - Other injury of unspecified body region, initial encounter (3) Right leg injury: CODE(S): S89.91XA - Unspecified injury of right lower leg, initial encounter QUALIFIERS: Encounter type: initial encounter Qualified Code(s): S89.91XA - Unspecified injury of right lower leg, initial encounter PLAN: Wash leg with antibacterial soap and water apply the Promogran to wound base moistened with dry dressing over top daily then follow-up in 1 weeks (4) Edema of right lower extremity: CODE(S): R60.0 - Localized edema (5) Infected wound: CODE(S): T14.8XXA - Other injury of unspecified body region, initial encounter; L08.9 - Local infection of the skin and subcutaneous tissue, unspecified PLAN: Infection resolved
[2023-03-17 09:33] VITALS: BP 124/50; PULSE 84; RESP 18; TEMP 35.9; BMI 22.4
--- NOTE | 2023-03-17 12:30 | PCM.WC.PN ---
History of Present Illness Date of Service: 03/17/23 Chief Complaint: Follow-up on traumatic wound right lower leg History of Wound: 57-year-old white female diabetic was walking across a bridge that collapsed over Labor memorial weekend of September 20. Leg went through wood and had wood sticking out of her wound. Patient thought she got it all out but was also in a blackfeet. She went to emergency room that did nothing and then she went to her family doctor and he put her on water pills and got an ultrasound which showed negative for blood clot. She was diagnosed with cellulitis and Bactrim DS was prescribed after the third urgent care visit. Patient stated there were no cultures ever taken and no x-rays of her leg ultrasound really did not look for foreign body but found that everything was compressible and there were no issues with blood clots. Progress of Wound: The wound is almost healed she has a small circular open area in the middle of the wound. We will try her on some Promogran and moistened with dressing over top. Patient measures about the same she still has this wound. We will obtain a culture today to make sure were not missing anything. She is developing some skin but its not healed over yet So since patient has started on her antibiotic there is been a big improvement she is down to just a very minor open area on the wound I believe that by the time we come back in 3 weeks she will be healed we will have her continue using the Promogran and that should finish it up. Subjective Subjective Patient is in agreement to plan and she agrees had probably it should be healed in 3 weeks Objective Data Objective Data Again major improvement it is flat there is no sign of infection there is no pain small opening she is on ciprofloxacin as the antibiotic she will continue using that she has been on since last Wednesday which is almost 5 days so she has been doing very well we will continue using the Promogran and by the time we get back in and see her in 3 weeks she should be healed. Vital Signs: Vital Signs Temp Pulse Resp BP O2 Del Method 96.6 F L 84 18 124/50 H Room Air 03/17/23 09:33 03/17/23 09:33 03/17/23 09:33 03/17/23 09:33 03/10/23 09:03 Oxygen Delivery Method Room Air Weight: 135 lb Body Mass Index (BMI) 22.4 Lab / Micro Data Micro: Microbiology 03/10/23 09:15 Wound - Leg, Right Gram Stain - Final 03/10/23 09:15 Wound - Leg, Right Wound Culture - Final Staphylococcus pseudintermediu 03/10/23 09:15 Wound - Leg, Right Anaerobic Culture - Final No anaerobic bacteria isolated. Physical Exam Const alert, oriented x3 and no apparent distress Constitutional Narrative: The patient is morbidly obese. General Appearance: cooperative, comfortable, well kempt and well developed Orientation / Consciousness: awake, oriented to person, oriented to place and oriented to time Exam Limitations: no limitations HEENT normocephalic and head/scalp atraumatic Head and Scalp: normal to inspection, normocephalic and atraumatic Face and Sinus: normal facial exam Nose: external nose normal General Ear: hearing grossly impaired External Ear: external ears normal Mouth: oral and palatal mucosa normal Eyes PERRL and EOMs intact bilaterally General Eye: normal appearance of both eyes Neck full ROM General: normal visual inspection Resp normal respiratory effort, normal air movement and no retractions Effort and Inspection: able to speak in complete sentences and symmetric chest movement Cardio Palpation: normal PMI Rate: regular rate Rhythm: regular rhythm GI Auscultation: normoactive bowel sounds Palpation: soft Back/Spine Cervical Spine: cervical ROM normal Extremity normal to inspection General Extremity: normal exam except as noted Skin no rashes or lesions noted Wound Narrative: A wound is noted on the patient's right pretibial surface. There is a small amount of bioburden. The wound is generally pink and healthy in appearance. There is no sign of infection or cellulitis. Dimensions are documented elsewhere. The size of the wound has diminished since the patient's prior visit. Mild swelling and edema are noted in the patient's right lower extremity. Neuro oriented x3, CN's II-XII intact bilaterally, moves all extremities and no focal motor deficits Sensorium / Orientation: awake, alert, oriented to person, oriented to place and oriented to time Psych Appearance: grossly normal Speech: normal speech Thought Content: normal thought content Judgement: judgement good Debridement Note Debridement Note Wound debrided: Right alcantara traumatic opening Type of Debridement: Selective debridement Anesthesia Used: 5% Lidocaine Gel Depth: Down to and including healthy tissue Percentage of wound debrided: 100 Instrument Used: 3mm curette Tissue Removed: Fibrin Severity: Limited To Skin Breakdown Amount of bleeding with debridement: Mild Bleeding Controlled with: Pressure Patient tolerated procedure: Patient did not tolerate procedure well Post-Debridement Measurements and Additional Note: Post-Debridement Measurements/Treatment WC - Nurse 1 - General Ulcer Assessment Start: 02/24/23 09:44 Freq: Status: Active Protocol: MEENU Activity Type Activity Date Activity User E-sign Co-sign Detail Recorded Client Recorded Date Recorded By Document 02/24/23 09:45 BM Desktop 02/24/23 09:49 BM Document 03/10/23 09:03 GM Desktop 03/10/23 09:11 GM Document 03/17/23 09:33 RB Desktop 03/17/23 09:36 RB 02/24/23 03/10/23 03/17/23 09:45 09:03 09:33 - Today's Visit Information Type of service Follow-up Visit Follow-up Visit Follow-up Visit (Physician/COMMUNITY SERVICE TECHNICIAN (Physician/COMMUNITY SERVICE TECHNICIAN (Physician/COMMUNITY SERVICE TECHNICIAN ) ) ) Arrival Mode Ambulatory Ambulatory Ambulatory Transfer Assistance None None None Patient Identification Verified (Name & Yes Yes Yes ) Patient Requires Transmission-Based No No No Precautions Safety Precautions NA Height and Weight Body Mass Index (BMI) 22.4 22.4 22.4 BMI Classification Normal Normal Normal Vital Signs Temperature (97.8 F-99.1 F) 96 F L 96.8 F L 96.6 F L Temperature Source Temporal Temporal Temporal Pulse Rate (60-100) 75 92 84 Pulse Location Monitor Monitor Monitor Respiratory Rate (12-18) 16 18 Respiratory rate source Observation Observation Oxygen Delivery Method Room Air Room Air Blood Pressure (90/60-120/80) 160/53 H 155/93 H 124/50 H Blood Pressure Mean (mm Hg) 88 113 74 Source Monitor Monitor Monitor Position Sitting Sitting Semi-Fowlers Blood Pressure Location Right Arm Right Forearm Left Arm History Since Last Visit- (Skip if this is Patient's initial visit) Have you changed medications since your No No No last visit? Any new allergies or adverse reactions No No No Had a fall/change in ADL's that may No No No increase risk of falls Signs or symptoms of abuse and/or No No No neglect since last visit Have you been in the hospital since your No No No last visit? Has dressing in place as prescribed Yes Yes Yes Has compression in place as prescribed Yes Yes Yes Has offloadiing in place as prescribed N/A No No Experienced any changes in pain level or No No No management Left Footwear Regular Shoe Regular Shoe Right Footwear Regular Shoe Regular Shoe Pain Scale: 0-10 Numeric Is Patient Pain Free? Yes Yes Yes WC - Nurse 1 - General Ulcer Measurement Start: 02/24/23 09:44 Freq: Status: Active Protocol: Activity Type Activity Date Activity User E-sign Co-sign Detail Recorded Client Recorded Date Recorded By Document 02/24/23 09:45 BMF Desktop 02/24/23 09:49 BMF Document 03/10/23 09:03 GM Desktop 03/10/23 09:11 GM Document 03/17/23 09:33 RB Desktop 03/17/23 09:36 RB 02/24/23 03/10/23 03/17/23 09:45 09:03 09:33 Wound Center Nurse 1 #1 R Alcantara -Combined with other wound No No No -Current Size (cm) - Length 0.6 0.6 0.2 -Current Size (cm) - Width 0.7 0.5 0.2 -Current Size (cm) - Depth 0.1 0.1 0.1 -Total Square Cm 0.42 0.30 0.04 -Photo Taken No No -Epithelialization None Present Small 1-33% -Tunneling No No No -Undermining/Tunneling No No No -Circular Undermining No No No -Exudate Amt Medium Small Medium -Exudate Type Serosanguineous Serosanguineous Serosanguineous -Wound Margin Distinct, Distinct, Distinct, Outline Outline Outline Attached Attached Attached -Granulation Amt Small (1-33%) Large (67-100%) Medium (34-66%) -Granulation Quality Red [place] -Slough/Fibrin Yes Yes -Necrosis Amt Large (67-100%) Small (1-33%) Medium (34-66%) -Necrotic Tissue Type Adherent Slough Adherent Slough -Structure Exposed N/A N/A -Texture (Zenia-wound Skin Appearance) Assessed, Assessed, Assessed, Scarring Scarring Scarring -Moisture (Zenia-wound Skin Appearance) Assessed Assessed Assessed -Color (Zenia-wound Skin Appearance) Assessed, Not Assessed Assessed Erythema -Temperature (Zenia-wound Skin No Abnormality No Abnormality No Abnormality Appearance) (Pt Warm) (Pt Warm) (Pt Warm) -Tenderness on Palpation (Zenia-wound No No No Skin Appearance) -Ulcer Cleansing Rinsed/ Soap and Water Wound Cleanser Irrigated with Saline -Foul Odor after Cleansing No No No -Anesthetic Used 5% Lidocaine 5% Lidocaine 5% Lidocaine Gel Gel Gel Lower Limb Edema Present Yes Right Calf (cm) 46 49.7 47.5 Right Ankle (cm) 25 25 24 WC - Nurse 2 - General Ulcer CM Notes Start: 02/24/23 09:44 Freq: Status: Active Protocol: Activity Type Activity Date Activity User E-sign Co-sign Detail Recorded Client Recorded Date Recorded By Document 02/24/23 10:01 MW Desktop 02/24/23 10:03 MW Document 03/10/23 09:18 MW Desktop 03/10/23 09:21 MW Document 03/17/23 09:55 MW Desktop 03/17/23 09:59 MW 02/24/23 03/10/23 03/17/23 10:01 09:18 09:55 Wound Center Nurse 2 #1 R Alcantara -Time 10:01 09:19 09:58 -Correct Patient Yes Yes Yes -Correct Side, Site, Position Yes Yes Yes -Correct Procedure Yes Yes Yes -Procedure Performed Yes Yes Yes -Type of Procedure Debridement Debridement Debridement -Clinical Debridement Subcutaneous Subcutaneous Subcutaneous -Tissue Removed Subcutaneous Subcutaneous Subcutaneous -Post Debridement (cm) - Length 0.8 0.5 0.4 -Post Debridement (cm) - Width 0.7 0.5 0.4 -Post Debridement (cm) - Depth 0.1 0.1 0.1 -Total Square (Post) (cm) 0.56 0.25 0.16 -Area of Debridement (cm) - Length 0.8 0.5 0.4 -Area of Debridement (cm) - Width 0.7 0.5 0.4 -Total Square (Area) (cm) 0.56 0.25 0.16 -Tunneling No No No -Undermining/Tunneling No No No -Circular Undermining No No No -Wound/Ulcer Outcome Not Healed Not Healed Not Healed -Ulcer Cleansing Rinsed/ Rinsed/ Rinsed/ Irrigated with Irrigated with Irrigated with Saline Saline Saline -Foul Odor after Cleansing No No No -Bioengineered Tissue No No No -Bleeding Controlled with Pressure Pressure Pressure -Treatment Response Procedure Procedure Procedure Tolerated Well Tolerated Well Tolerated Well -Offloading No No No -Debridement - Subq, 1st 20sq cm Yes Yes Yes Pain Scale: 0-10 Numeric Is Patient Pain Free? Yes Yes Yes WC - Nurse 3 - General Ulcer D/C NN Start: 02/24/23 09:44 Freq: Status: Active Protocol: Activity Type Activity Date Activity User E-sign Co-sign Detail Recorded Client Recorded Date Recorded By Document 02/24/23 10:03 MW Desktop 02/24/23 10:05 MW Document 03/10/23 09:31 GM Desktop 03/10/23 09:32 GM Document 03/17/23 10:09 MW Desktop 03/17/23 10:10 MW 02/24/23 03/10/23 03/17/23 10:03 09:31 10:09 Wound Care Center Nurse 3 #1 R Alcantara -Ulcer Cleansing Rinsed/ Not Cleansed Rinsed/ Irrigated with Irrigated with Saline Saline -Foul Odor after Cleansing No No No -Negative Pressure Wound Therapy N/A N/A N/A -Primary Dressing Applied Mepilex Border, Mepilex Border, Mepilex Border, Promogran Promogran Promogran Ramya Matter Ramya Matter -Mepilex Border 1 1 1 -Promogran 2 -Promogran Ramya Matter 2 1 Right -Lotion applied to leg before No No compression wrap -Tubular Bandage Single Layer -Size of Tubigrip Used Size D -Size D ($) 2 -Other Double layer tubigrip Treatment Response Procedure Procedure Tolerated Well Tolerated Well Pain Scale: 0-10 Numeric Is Patient Pain Free? Yes Yes Yes Teaching: Wound Center Dressing Your Wound -Person Taught Patient Patient Patient -Teaching Method Discussion, Discussion Discussion Demonstration -Response to teaching Verbalize Verbalize Verbalize understanding understanding understanding Compression Wraps & Stockings -Person Taught Patient -Teaching Method Discussion -Response to teaching Verbalize understanding WC - Visit Discharge Discharge Condition Stable Stable Stable Ambulatory Status Ambulatory Ambulatory Ambulatory Transportation Private Auto Private Auto Private Auto Accompanied by self self Medication Reconcilliation completed & No Yes No provided to patient/care provider Clinical Summary of Care Provided Yes Yes Yes Assessment/Plan Assessment/Plan (1) Hyperglycemia due to diabetes mellitus: CODE(S): E11.65 - Type 2 diabetes mellitus with hyperglycemia PLAN: Continue monitoring blood sugars (2) Nonhealing nonsurgical wound: CODE(S): T14.8XXA - Other injury of unspecified body region, initial encounter (3) Right leg injury: CODE(S): S89.91XA - Unspecified injury of right lower leg, initial encounter QUALIFIERS: Encounter type: initial encounter Qualified Code(s): S89.91XA - Unspecified injury of right lower leg, initial encounter PLAN: Wash leg with antibacterial soap and water apply the Promogran to wound base moistened with dry dressing over top daily then follow-up in 3 weeks (4) Edema of right lower extremity: CODE(S): R60.0 - Localized edema (5) Infected wound: CODE(S): T14.8XXA - Other injury of unspecified body region, initial encounter; L08.9 - Local infection of the skin and subcutaneous tissue, unspecified PLAN: Infection resolved
== END 2023-03-25 23:59 | disposition home or self-care (01) ==
LOC: WC 09:30
PROVIDERS: PCP Family Medicine; Referring Provider Family Medicine; Visit Provider Nurse Practitioner
DX: S81.801A Unspecified open wound, right lower leg, initial encounter (principal); E11.65 Type 2 diabetes mellitus with hyperglycemia; Z79.4 Long term (current) use of insulin; W13.1XXA Fall from, out of or through bridge, initial encounter; R60.0 Localized edema; Z79.84 Long term (current) use of oral hypoglycemic drugs; Z79.899 Other long term (current) drug therapy
CPT/HCPCS: 11042; 87070; 87075; 87077; 87186; 87205

== ENCOUNTER 2023-04-07 08:53 | Outpatient (RCR) | payer BC, SELFPAY ==
[2023-03-26 00:48] VITALS: BP 124/50; PULSE 84; RESP 18; TEMP 35.9; BMI 22.4
[2023-04-07 09:00] VITALS: BP 152/72; PULSE 87; RESP 18; TEMP 35.8; BMI 22.4
--- NOTE | 2023-04-07 10:03 | PCM.WC.PN ---
History of Present Illness Date of Service: 04/07/23 Chief Complaint: Follow-up on traumatic wound right lower leg History of Wound: 57-year-old white female diabetic was walking across a bridge that collapsed over Labor memorial weekend of September 20. Leg went through wood and had wood sticking out of her wound. Patient thought she got it all out but was also in a [place]. She went to emergency room that did nothing and then she went to her family doctor and he put her on water pills and got an ultrasound which showed negative for blood clot. She was diagnosed with cellulitis and Bactrim DS was prescribed after the third urgent care visit. Patient stated there were no cultures ever taken and no x-rays of her leg ultrasound really did not look for foreign body but found that everything was compressible and there were no issues with blood clots. Progress of Wound: Wound is healed and patient will be discharged from the wound center Subjective Subjective Patient is very satisfied with outcomes and has had no concerns Objective Data Objective Data Wound is healed and patient will be discharged from the wound center Vital Signs: Vital Signs Temp Pulse Resp BP 96.4 F L 87 18 152/72 H 04/07/23 09:00 04/07/23 09:00 04/07/23 09:00 04/07/23 09:00 Weight: 135 lb Body Mass Index (BMI) 22.4 Lab / Micro Data Attestation: I reviewed the patient's lab results. Physical Exam Const alert, oriented x3 and no apparent distress Constitutional Narrative: The patient is morbidly obese. General Appearance: cooperative, comfortable, well kempt and well developed Orientation / Consciousness: awake, oriented to person, oriented to place and oriented to time Exam Limitations: no limitations HEENT normocephalic and head/scalp atraumatic Head and Scalp: normal to inspection, normocephalic and atraumatic Face and Sinus: normal facial exam Nose: external nose normal General Ear: hearing grossly impaired External Ear: external ears normal Mouth: oral and palatal mucosa normal Eyes PERRL and EOMs intact bilaterally General Eye: normal appearance of both eyes Neck full ROM General: normal visual inspection Resp normal respiratory effort, normal air movement and no retractions Effort and Inspection: able to speak in complete sentences and symmetric chest movement Cardio Palpation: normal PMI Rate: regular rate Rhythm: regular rhythm GI Auscultation: normoactive bowel sounds Palpation: soft Back/Spine Cervical Spine: cervical ROM normal Extremity normal to inspection General Extremity: normal exam except as noted Skin no rashes or lesions noted Wound Narrative: A wound is noted on the patient's right pretibial surface. There is a small amount of bioburden. The wound is generally pink and healthy in appearance. There is no sign of infection or cellulitis. Dimensions are documented elsewhere. The size of the wound has diminished since the patient's prior visit. Mild swelling and edema are noted in the patient's right lower extremity. Neuro oriented x3, CN's II-XII intact bilaterally, moves all extremities and no focal motor deficits Sensorium / Orientation: awake, alert, oriented to person, oriented to place and oriented to time Psych Appearance: grossly normal Speech: normal speech Thought Content: normal thought content Judgement: judgement good Debridement Note Debridement Note No debridement was completed: No debridement was completed today Post-Debridement Measurements and Additional Note: Post-Debridement Measurements/Treatment - Nurse 1 - General Ulcer Assessment Start: 04/07/23 09:00 Freq: Status: Active Protocol: MEENU Activity Type Activity Date Activity User E-sign Co-sign Detail Recorded Client Recorded Date Recorded By Document 04/07/23 09:00 Desktop 04/07/23 09:06 DL 04/07/23 09:00 - Today's Visit Information Type of service Follow-up Visit (Physician/MANAGER AUDIT ) Arrival Mode Ambulatory Transfer Assistance None Patient Identification Verified (Name & Yes ) Patient Requires Transmission-Based No Precautions Finger Stick Blood Sugar(mg/dl) (if not checked indicated): Blood Sugar Stated by Patient Height and Weight Body Mass Index (BMI) 22.4 BMI Classification Normal Vital Signs Temperature (97.8 F-99.1 F) 96.4 F L Temperature Source Temporal Pulse Rate (60-100) 87 Pulse Location Monitor Respiratory Rate (12-18) 18 Respiratory rate source Observation Blood Pressure (90/60-120/80) 152/72 H Blood Pressure Mean (mm Hg) 98 Source Monitor History Since Last Visit- (Skip if this is Patient's initial visit) Have you changed medications since your No last visit? Any new allergies or adverse reactions No Had a fall/change in ADL's that may No increase risk of falls Signs or symptoms of abuse and/or No neglect since last visit Have you been in the hospital since your No last visit? Has dressing in place as prescribed Yes Has compression in place as prescribed Yes Has offloadiing in place as prescribed N/A Experienced any changes in pain level or No management Left Footwear Regular Shoe Right Footwear Regular Shoe Pain Scale: 0-10 Numeric Is Patient Pain Free? Yes WC - Nurse 1 - General Ulcer Measurement Start: 04/07/23 09:00 Freq: Status: Active Protocol: Activity Type Activity Date Activity User E-sign Co-sign Detail Recorded Client Recorded Date Recorded By Document 04/07/23 09:00 DL Desktop 04/07/23 09:06 DL 04/07/23 09:00 Wound Center Nurse 1 #1 R Vivas -Current Size (cm) - Length 0.1 -Current Size (cm) - Width 0.1 -Current Size (cm) - Depth 0.1 -Total Square Cm 0.01 -Exudate Amt None Present -Wound Margin Flat & Intact -Granulation Amt Large (67-100%) -Granulation Quality [place] -Necrosis Amt None Present (0 %) -Structure Exposed N/A -Texture (Zenia-wound Skin Appearance) Assessed, Scarring -Moisture (Zenia-wound Skin Appearance) No Abnormality -Color (Zenia-wound Skin Appearance) No Abnormality -Temperature (Zenia-wound Skin No Abnormality Appearance) (Pt Warm) -Ulcer Cleansing Rinsed/ Irrigated with Saline -Foul Odor after Cleansing No -Anesthetic Used 5% Lidocaine Gel Right Calf (cm) 47 Right Ankle (cm) 23.5 WC - Nurse 2 - General Ulcer CM Notes Start: 04/07/23 09:00 Freq: Status: Active Protocol: Activity Type Activity Date Activity User E-sign Co-sign Detail Recorded Client Recorded Date Recorded By Document 04/07/23 09:19 MW [facility] 04/07/23 09:21 MW 04/07/23 09:19 Wound Center Nurse 2 #1 R Vivas -Time 09:20 -Correct Patient Yes -Correct Side, Site, Position Yes -Correct Procedure Yes -Procedure Performed No -Post Debridement (cm) - Length 0 -Post Debridement (cm) - Width 0 -Post Debridement (cm) - Depth 0 -Total Square (Post) (cm) 0 -Tunneling No -Undermining/Tunneling No -Circular Undermining No -Wound/Ulcer Outcome Healed- Epithelialized -Foul Odor after Cleansing No -Bioengineered Tissue No -Offloading No Pain Scale: 0-10 Numeric Is Patient Pain Free? Yes WC - Nurse 3 - General Ulcer D/C NN Start: 04/07/23 09:00 Freq: Status: Active Protocol: Activity Type Activity Date Activity User E-sign Co-sign Detail Recorded Client Recorded Date Recorded By Document 04/07/23 09:21 MW Desktop 04/07/23 09:22 MW 04/07/23 09:21 Wound Care Center Nurse 3 #1 R Vivas -Ulcer Cleansing Rinsed/ Irrigated with Saline -Foul Odor after Cleansing No -Negative Pressure Wound Therapy N/A -Primary Dressing Applied Mepilex Border -Mepilex Border 1 Treatment Response Procedure Tolerated Well Pain Scale: 0-10 Numeric Is Patient Pain Free? Yes Teaching: Wound Center Discharge Instructions -Person Taught Patient -Teaching Method Discussion -Response to teaching Verbalize understanding WC - Visit Discharge Discharge Condition Stable Ambulatory Status Ambulatory Transportation Private Auto Accompanied by self Medication Reconcilliation completed & No provided to patient/care provider Clinical Summary of Care Provided Yes Assessment/Plan Assessment/Plan (1) Hyperglycemia due to diabetes mellitus: CODE(S): E11.65 - Type 2 diabetes mellitus with hyperglycemia PLAN: Continue monitoring blood sugars (2) Nonhealing nonsurgical wound: CODE(S): T14.8XXA - Other injury of unspecified body region, initial encounter (3) Right leg injury: CODE(S): S89.91XA - Unspecified injury of right lower leg, initial encounter QUALIFIERS: Encounter type: initial encounter Qualified Code(s): S89.91XA - Unspecified injury of right lower leg, initial encounter PLAN: Wounds are all resolved patient will be discharged from the wound center and can follow-up as needed (4) Edema of right lower extremity: CODE(S): R60.0 - Localized edema (5) Infected wound: CODE(S): T14.8XXA - Other injury of unspecified body region, initial encounter; L08.9 - Local infection of the skin and subcutaneous tissue, unspecified PLAN: Infection resolved
== END 2023-04-08 16:14 | disposition home or self-care (01) ==
LOC: WC 08:53
PROVIDERS: PCP Family Medicine; Referring Provider Family Medicine; Visit Provider Nurse Practitioner
DX: Z09 Encounter for follow-up examination after completed treatment for conditions other than malignant neoplasm (principal); E11.65 Type 2 diabetes mellitus with hyperglycemia; Z79.4 Long term (current) use of insulin; R60.0 Localized edema; Z79.84 Long term (current) use of oral hypoglycemic drugs; Z79.899 Other long term (current) drug therapy
CPT/HCPCS: 99213; G0463

== ENCOUNTER → 2024-07-31 | Outpatient (CLI) | payer BC, SELFPAY ==
[2024-07-31 11:30] LABS: Cholesterol 214 mg/dL (<=200); High Density Lipoprotein 58 mg/dL; Low Density Lipoprotein Calc. 124 mg/dL; Triglycerides 161 mg/dL; Very Low Density Lipoprotein 32 mg/dL (5-40); cholesterol:hdl ratio screen 3.72
== END | disposition home or self-care (01) ==
LOC: LAB 10:44
PROVIDERS: PCP Family Medicine; Referring Provider Nurse Practitioner Family; Visit Provider Nurse Practitioner Family
DX: E78.00 Pure hypercholesterolemia, unspecified (principal); E11.65 Type 2 diabetes mellitus with hyperglycemia; Z79.4 Long term (current) use of insulin
CPT/HCPCS: 36415; 80061